=== PATIENT | female | born 1955 ===

== ENCOUNTER 2020-05-19 12:19 | Outpatient (REF) | payer MEDICARE, BC, SELFPAY ==
--- NOTE | 2020-05-19 12:25 | MM_ITS ---
EXAMINATION: MM DIAGNOSTIC DIGITAL BREAST TOMOSYNTHESIS, BILATERAL CLINICAL INFORMATION: Status post left breast lumpectomy COMPARISON: Mammography: May 14, 2019 and studies dating back to December 15, 2011 TECHNIQUE: Digital breast tomosynthesis is performed in both the craniocaudal and mediolateral oblique views along with computer-aided detection (CAD). Synthesized 2D images are generated from the tomosynthesis. Additional left cleavage view performed. Spot magnification films of the left breast in craniocaudal, exaggerated craniocaudal, and 90 degree mediolateral views also performed. FINDINGS: There are scattered areas of fibroglandular density (ACR BI-RADS breast composition Category b). There are no new significant masses, abnormal calcifications, or other abnormalities. Left breast postsurgical change evident. Results are provided to the patient at time of visit by the technologist. MM/MM tomosynthesis diagnostic BI IMPRESSION: There are no significant changes from prior study. ASSESSMENT: BI-RADS 2: Benign RECOMMENDATION: Routine annual mammography screening due in 12 months. This patient's information was entered into a reminder system with a target due date for their next mammogram.
== END 2020-05-19 12:20 | disposition home or self-care (01) ==
LOC: HO.MAMMO 12:19
PROVIDERS: PCP Internal Medicine; Visit Provider Internal Medicine
DX: Z86.000 Personal history of in-situ neoplasm of breast (principal); Z98.890 Other specified postprocedural states
CPT/HCPCS: 77062; 77066

== ENCOUNTER → 2020-06-25 08:39 | Outpatient (BNVA) | payer MEDICARE, BC, SELFPAY | PROVIDERS: PCP Internal Medicine; Visit Provider Surgery | DX: D05.02 Lobular carcinoma in situ of left breast (principal) | CPT/HCPCS: 99212 ==

== ENCOUNTER → 2020-10-15 12:19 | Outpatient (BNVA) | payer MEDICARE, BC, SELFPAY | PROVIDERS: PCP Internal Medicine; Visit Provider Internal Medicine Endocrinology, Diabetes & Metabolism | DX: E11.65 Type 2 diabetes mellitus with hyperglycemia (principal); E78.5 Hyperlipidemia, unspecified | CPT/HCPCS: 82947; 99202 ==

== ENCOUNTER → 2020-11-03 13:01 | Outpatient (BNVA) | payer MEDICARE, BC, SELFPAY | PROVIDERS: PCP Internal Medicine; Visit Provider Internal Medicine Endocrinology, Diabetes & Metabolism | DX: Z13.89 Encounter for screening for other disorder (principal) | CPT/HCPCS: Q3014 ==

== ENCOUNTER → 2020-12-25 09:19 | Outpatient (BNVA) | payer MEDICARE, BC, SELFPAY | PROVIDERS: PCP Internal Medicine; Referring Provider Internal Medicine; Visit Provider Surgery | DX: D05.02 Lobular carcinoma in situ of left breast (principal) | CPT/HCPCS: 99212 ==

== ENCOUNTER → 2021-01-16 12:48 | Outpatient (BNVA) | payer MEDICARE, BC, SELFPAY | PROVIDERS: PCP Internal Medicine; Visit Provider Internal Medicine Endocrinology, Diabetes & Metabolism | DX: E11.65 Type 2 diabetes mellitus with hyperglycemia (principal); E78.5 Hyperlipidemia, unspecified | CPT/HCPCS: 82947; 99212 ==

== ENCOUNTER → 2021-05-18 12:19 | Outpatient (BNVA) | payer MEDICARE, BC, SELFPAY | PROVIDERS: PCP Internal Medicine; Visit Provider Nurse Practitioner Gerontology | DX: E11.65 Type 2 diabetes mellitus with hyperglycemia (principal); E78.5 Hyperlipidemia, unspecified | CPT/HCPCS: 82947; 83036; 99212 ==

== ENCOUNTER 2021-06-15 12:09 | Outpatient (REF) | payer MEDICARE, BC, SELFPAY ==
--- NOTE | ~2021-06-15 | MM_ITS ---
EXAMINATION: MM SCREENING DIGITAL BREAST TOMOSYNTHESIS, BILATERAL CLINICAL INFORMATION: Screening. Asymptomatic. Left stereotactic biopsy 04/21/2018 with focal ADH. Subsequent LCIS on open surgical biopsy 05/25/2018. The lifetime risk of breast cancer based on the Tyrer-Cuzick Model is 40%. COMPARISON: Mammography: 05/19/2020, 05/14/2019, 11/28/2018, 05/25/2018, 04/21/2018, 04/07/2017 TECHNIQUE: Digital breast tomosynthesis is performed in both the craniocaudal and mediolateral oblique views along with computer-aided detection (CAD). Synthesized 2D images are generated from the tomosynthesis. FINDINGS: There are scattered areas of fibroglandular density (ACR BI-RADS breast composition Category b). There are postsurgical changes left breast with mild reduced breast size and stable scarring. Parenchymal pattern is similar to prior study. Minor nodular asymmetry central outer right breast is stable from prior exams. There is no developing density or interval mass or architectural abnormality. No abnormal calcifications. No significant changes. MM/MM tomosynthesis screening BI IMPRESSION: No mammographic evidence of malignancy. ASSESSMENT: BI-RADS 2: Benign RECOMMENDATION: 1. Routine annual mammography screening. 2. The lifetime risk of breast cancer based on the Tyrer-Cuzick Model is 40%. Additional annual adjunct screening with breast MRI may be of benefit in women with a risk score of 20% or greater. This patient's information was entered into a reminder system with a target due date for their next mammogram.
== END 2021-06-15 12:10 | disposition home or self-care (01) ==
LOC: HO.MAMMO 12:09
PROVIDERS: PCP Internal Medicine; Visit Provider Surgery
DX: Z12.31 Encounter for screening mammogram for malignant neoplasm of breast (principal)
CPT/HCPCS: 77063; 77067

== ENCOUNTER → 2021-06-26 11:22 | Outpatient (BNVA) | payer MEDICARE, BC, SELFPAY | PROVIDERS: PCP Internal Medicine; Referring Provider Internal Medicine; Visit Provider Surgery | DX: D05.02 Lobular carcinoma in situ of left breast (principal) | CPT/HCPCS: 99212 ==

== ENCOUNTER 2021-07-07 08:46 | Outpatient (REF) | payer MEDICARE, BC, SELFPAY ==
[2021-07-07 09:47] LABS: COVID-19 Test Negative (Negative); IDNOW Serial# 16C4AD1C
== END 2021-07-07 08:47 | disposition home or self-care (01) ==
LOC: HO.LAB 08:46
PROVIDERS: Visit Provider Internal Medicine
DX: Z20.822 Contact with and (suspected) exposure to COVID-19 (principal)
CPT/HCPCS: 36415; 87635; C9803

== ENCOUNTER 2021-07-08 15:15 | Outpatient (REF) | payer MEDICARE, BC, SELFPAY ==
--- NOTE | ~2021-07-08 | MR_ITS ---
EXAMINATION: MR BREAST WITHOUT AND WITH CONTRAST, BILATERAL CLINICAL INFORMATION: 66-year-old status post ADH and LCIS left breast high-risk screening, COMPARISON: Correlation to mammogram of 06/15/2021. TECHNIQUE: Imaging was performed with a dedicated breast coil. Prior to the administration of contrast, bilateral axial T1 and bilateral axial T2 weighted sequences were obtained. After the uneventful administration of?6.5 mL of Gadavist, dynamic contrast-enhanced VIBRANT series through the breasts in the axial plane were performed. Subtracted images were performed and reviewed. A delayed sagittal sequence through both breasts was acquired. Additionally, CAD post-processing, including maximum intensity projections, 3-D reconstructions and kinetic analysis, were performed an independent workstation and reviewed by the interpreting radiologist is a portion of this exam. FINDINGS: The patient's fibroglandular tissue demonstrates minimal background enhancement. LEFT BREAST: There is architectural distortion in the upper outer quadrant from prior lumpectomy. There is no associated enhancement. There are no areas of mass or non-mass enhancement suspicious of malignancy. There are no additional findings on T2-weighted imaging or kinetic curve analysis. RIGHT BREAST: There is an oval T2 bright mass in the 9 o'clock position measuring 0.5 cm, consistent with a cyst. There are no areas of mass or non-mass enhancement suspicious of malignancy and no secondary signs of malignancy such as nipple retraction or duct enhancement. There are no additional findings on T2-weighted imaging or kinetic curve analysis. There is no suspicious internal mammary chain or axillary adenopathy. Limited views of the chest and abdomen are unremarkable. MR/MR breast BI wo/w con IMPRESSION: Postlumpectomy changes in the left breast. No MRI findings suspicious of malignancy. ASSESSMENT: LEFT BREAST: BI-RADS 2, benign. RIGHT BREAST: BI-RADS 2, benign. RECOMMENDATIONS: Routine mammographic imaging as per most recent study and MRI as per high-risk protocol.
[2021-07-08 15:52] LABS: Blood Urea Nitrogen 19 mg/dL (9-16); Estimated Glomerular Filt Rate > 60
== END 2021-07-08 15:16 | disposition home or self-care (01) ==
LOC: HO.MRI 15:15
PROVIDERS: PCP Internal Medicine; Visit Provider Surgery
DX: D05.02 Lobular carcinoma in situ of left breast (principal); Z91.89 Other specified personal risk factors, not elsewhere classified
CPT/HCPCS: 36415; 77049; 82565; 84520; A9585

== ENCOUNTER → 2021-09-09 12:21 | Outpatient (BNVA) | payer BC, SELFPAY | PROVIDERS: PCP Internal Medicine; Visit Provider Nurse Practitioner Gerontology | DX: E11.65 Type 2 diabetes mellitus with hyperglycemia (principal); E78.5 Hyperlipidemia, unspecified; Z79.84 Long term (current) use of oral hypoglycemic drugs | CPT/HCPCS: 82947; 83036 ==

== ENCOUNTER 2021-09-19 07:06 | Outpatient (REF) | payer BC, SELFPAY ==
[2021-09-19 07:48] LABS: Alanine Aminotransferase 19 U/L (0-31); Albumin Level 4.1 g/dL (3.5-5.0); Alkaline Phosphatase 157 U/L (39-117); Anion Gap 13 (12-20); Aspartate Amino Transferase 17 U/L (5-31); Bilirubin Total 0.4 mg/dL (0.0-1.0); Blood Urea Nitrogen 20 mg/dL (9-16); Calcium 9.7 mg/dL (8.4-10.2); Carbon Dioxide 23 mmol/L (22-29); Chloride 107 mmol/L (96-108); Cholesterol 131 mg/dL; Estimated Glomerular Filt Rate 54; Glucose Fasting 293 mg/dL (60-99); HDL Cholesterol 41 mg/dL; LDL Cholesterol Calculated 57 mg/dl; Potassium 4.4 mmol/L (3.3-5.1); Sodium 139 mmol/L (135-145); Total Protein 6.7 g/dL (6.5-8.0); Triglycerides 166 mg/dL
[2021-09-19 08:09] LABS: Free T4 (Free Thyroxine) 1.24 ng/dL (0.71-1.85); Thyroid Stimulating Hormone 1.32 uIU/mL (0.32-4.0)
[2021-09-19 08:29] LABS: Creatinine Urine 53.08 mg/dL; Microalbum/Creatinine Ratio Ur 43.3 ug/mg cr
[2021-09-21 05:21] LABS: LDL Cholesterol Direct 62 mg/dL (<100)
== END 2021-09-19 07:07 | disposition home or self-care (01) ==
LOC: HO.LAB 07:06
PROVIDERS: PCP Internal Medicine; Visit Provider Nurse Practitioner Gerontology
DX: E11.65 Type 2 diabetes mellitus with hyperglycemia (principal)
CPT/HCPCS: 36415; 80053; 80061; 82043; 83721; 84439; 84443

== ENCOUNTER 2022-06-17 09:57 | Outpatient (REF) | payer MEDICARE, BC, SELFPAY ==
--- NOTE | ~2022-06-17 | MM_ITS ---
EXAMINATION: MM SCREENING DIGITAL BREAST TOMOSYNTHESIS, BILATERAL CLINICAL INFORMATION: Screening. Asymptomatic. ADH and LCIS left breast. COMPARISON: Mammography: June 15, 2021 and studies dating back to December 15, 2011 TECHNIQUE: Digital breast tomosynthesis is performed in both the craniocaudal and mediolateral oblique views along with computer-aided detection (CAD). Synthesized 2D images are generated from the tomosynthesis. FINDINGS: There are scattered areas of fibroglandular density (ACR BI-RADS breast composition Category b). There are no new significant masses, abnormal calcifications, or other abnormalities. Postsurgical change again seen within the left breast. MM/MM tomosynthesis screening BI IMPRESSION: No significant changes from prior exam. ASSESSMENT: BI-RADS 2: Benign RECOMMENDATION: Routine annual mammography screening. This patient's information was entered into a reminder system with a target due date for their next mammogram.
== END 2022-06-17 09:58 | disposition home or self-care (01) ==
LOC: HO.MAMMO 09:57
PROVIDERS: PCP Internal Medicine; Visit Provider Internal Medicine
DX: Z12.31 Encounter for screening mammogram for malignant neoplasm of breast (principal)
CPT/HCPCS: 77063; 77067

== ENCOUNTER → 2022-07-09 09:40 | Outpatient (BNVA) | payer BC, SELFPAY | PROVIDERS: PCP Internal Medicine; Visit Provider Surgery | DX: D05.02 Lobular carcinoma in situ of left breast (principal); Z91.89 Other specified personal risk factors, not elsewhere classified ==

== ENCOUNTER 2022-12-31 08:03 | Outpatient (REF) | payer BC, SELFPAY ==
--- NOTE | ~2022-12-31 | MR_ITS ---
EXAMINATION: MR BREAST WITHOUT AND WITH CONTRAST, BILATERAL CLINICAL INFORMATION: High-risk screening. Left breast cancer. Lifetime risk 40%. Lobular neoplasia. COMPARISON: 07/08/2021. Mammography 06/17/2022. TECHNIQUE: Imaging was performed with a dedicated breast coil. Prior to the administration of contrast, bilateral axial T1 and bilateral axial T2 weighted sequences were obtained. After the uneventful administration of?7 mL of Gadavist, dynamic contrast-enhanced VIBRANT series through the breasts in the axial plane were performed. Subtracted images were performed and reviewed. A delayed sagittal sequence through both breasts was acquired. Additionally, CAD post-processing, including maximum intensity projections, 3-D reconstructions and kinetic analysis, were performed an independent workstation and reviewed by the interpreting radiologist is a portion of this exam. FINDINGS: The breasts are comprised of scattered fibroglandular elements. The tissue undergoes mild background enhancement. Minor motion artifact. LEFT BREAST: Retroareolar architectural distortion predominating laterally following prior lumpectomy. Stable parenchymal enhancement at surgical site. Stable postoperative nipple retraction. No suspicious left breast mass nor dominant nonmass enhancement. A tiny medial focus of skin enhancement at 10:00 near the midline, clinical correlation suggested. RIGHT BREAST: No suspicious mass, dominant nonmass enhancement or architectural distortion. Overall background enhancement has increased compared with priors. No skin thickening or nipple retraction. Tiny foci of skin enhancement medially are unchanged. 5 mm T2 bright nonenhancing focus at 9:00 unchanged again likely a cyst. There is no suspicious internal mammary chain or axillary adenopathy. Limited views of the chest and abdomen are unremarkable. MR/MR breast BI wo/w con IMPRESSION: No MR specific evidence of malignancy. Status post left lumpectomy. Scattered foci of skin enhancement again noted. ASSESSMENT: LEFT BREAST: BI-RADS 2, benign findings. RIGHT BREAST: BI-RADS 2, benign findings. RECOMMENDATIONS: Recommend a repeat bilateral breast MRI in 12 months.
== END 2022-12-31 08:04 | disposition home or self-care (01) ==
LOC: HO.MRI 08:03
PROVIDERS: PCP Internal Medicine; Visit Provider Surgery
DX: D05.10 Intraductal carcinoma in situ of unspecified breast (principal); Z91.89 Other specified personal risk factors, not elsewhere classified
CPT/HCPCS: 77049; A9585

== ENCOUNTER → 2023-01-06 08:55 | Outpatient (BNVA) | payer BC, SELFPAY | PROVIDERS: PCP Internal Medicine; Visit Provider Surgery | DX: D05.02 Lobular carcinoma in situ of left breast (principal); Z91.89 Other specified personal risk factors, not elsewhere classified ==

== ENCOUNTER 2023-04-27 09:13 | Outpatient (AMB) | payer BC, SELFPAY ==
--- NOTE | 2023-04-27 09:37 | MHC.PC.OV ---
Vital Signs 04/27/23 09:40 Height 5 ft 2 in Weight 149 lb 8 oz BMI 27.3 BP 124/64 Blood Pressure Location Lt brachial Position Sitting Pulse 97 Pulse Source Pulse Oximeter Pulse Oximetry (%) 96 Oxygen Delivery Method Room Air Intake Visit Reasons: Re-establish care/ Due for Colonoscopy Intake Note: Patient is here today for re-establish care and is due for colonoscopy Child Care Nurse Required: No Forestry Consultant: Not Required per policy Accompanied by: Self / Same As Patient Allergies oxycodone [From PERCOCET] Allergy (Unknown, Verified 04/28/23 06:52) NAUSEA & VOMITING semaglutide [From Rybelsus] Adverse Reaction (Verified 04/28/23 06:52) Vomiting Medication List - Last Reconciled 04/28/23 by Armando Nobles MD amlodipine 5 mg PO DAILY blood sugar diagnostic (FreeStyle Lite Strips) As directed once daily cholecalciferol (vitamin D3) 50 mcg PO DAILY cinacalcet 30 mg PO DAILY dapagliflozin propanediol (Farxiga) 10 mg PO DAILY 90 days flash glucose sensor (FreeStyle Heidi 2 Sensor kit) As directed lancets (FreeStyle Lancets) As directed once daily lancets (FreeStyle Lancets) daily magnesium oxide 400 mg PO DAILY metformin 1,000 mg (2 x 500 mg) PO BID 90 days metoprolol succinate ER mg PO mycophenolate sodium 360 mg PO BID pen needle, diabetic (BD Ultra-Fine Gill Pen Needle) As directed once daily semaglutide (Ozempic) 0.5 mg subcut QWEEK simvastatin 20 mg PO BEDTIME tacrolimus 2 mg PO DAILY tacrolimus 4 mg PO DAILY Tobacco use date assessed: 04/27/23 Fall risk assessment: No Falls in past year Last assessed Fall Risk: 04/27/23 Dental Screening Dental Screen Date: 04/27/23 Did you have a dental visit in the last 12 months?: Yes Did you have a dental problem in the last 6 months where you did not have access to dental care?: No Was dental information given to patient?: Patient has dentist HPI Re-establish care/ Due for Colonoscopy HPI Details 67-year-old female presents to the office to establish her care. She was last seen in the office 3 years ago. Patient has a kidney transplant and poorly controlled diabetes. For this she sees a transplant hse coordinator and site interpreter at [facility]. All her care is from them. She was contacted by quality department to reestablish here to get a screening colonoscopy. Patient occasionally has left hip pain. The pain is intermittent and comes on without any provocation. Able to walk and do all activities of daily living. Does not recall any fall or injury. 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 Stage 4 chronic kidney disease Surgical History History of kidney transplant (06/09/18) History of lumpectomy of left breast History of left breast biopsy (04/2018) History of biopsy History of Mohs surgery for squamous cell carcinoma of skin History of endometrial ablation History of umbilical hernia repair Family History (Updated 04/27/23 @ 09:38 by CAYLA Dhaliwal) Mother History of melanoma History of stomach cancer History of pulmonary embolism Social History Household Members: Significant Other Housing: Apartment Alcohol intake: never Patient Tobacco Use Status: Never used Tobacco e-Cigarette/Vaping Use: Never Used Second Hand Smoke Exposure: No service: No Current occupational status: employed and retired 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 1. Little interest or pleasure in doing things: not at all 2. Feeling down, depressed, or hopeless: not at all 3. Trouble falling or staying asleep, or sleeping too much: not at all 4. Feeling tired or having little energy: not at all 5. Poor appetite or overeating: not at all 6. Feeling bad about yourself - or that you are a failure or have let yourself or your family down: not at all 7. Trouble concentrating on things, such as reading the newspaper or watching television: not at all 8. Moving or speaking so slowly that other people could have noticed. Or the opposite - being so fidgety or restless that you have been moving around a lot more than usual: not at all 9. Thoughts that you would be better off or of hurting yourself in some way: not at all Total score: 0 Depression Screening Interpretation: Negative Depression Screening Done: Yes Source: Developed by Drs. Fox Dill, Holli Whitaker, Abelardo Wright and colleagues, with an educational gerard from [employer]. Thrive Questionnaire Date Thrive assessed: 04/27/23 I am a: Patient What is your living situation today?: I have a steady place to live Within the past 12 months, did the food you bought not last and you didn't have the money to get more?: Never true Within the past 12 months, did you worry whether your food would run out before you got money to buy more?: Never true Do you have trouble paying for medicines?: No Do you have trouble getting transportation to medical appointments?: No Do you have trouble paying your heating and electricity bill?: No Do you have trouble taking care of your child, family member or friend?: No Do you have trouble with day-to-day activities such as bathing, preparing meals, shopping, managing finances, etc.?: No Are you currently unemployed and looking for a job?: No Are you interested in more education?: No Currently or been in a relationship where the following occur: no concerns reported AUDIT C Alcohol Use Questionnaire (AUDIT-C) 1. How often do you have a drink containing alcohol?: Never Total Score: 0 SHAYLA-7 AMB Questionnaire SHAYLA-7 Date SHAYLA - 7 assessed: 04/27/23 Feeling nervous, anxious, or on edge: 0 = Not at all Not being able to stop or control worryin = Not at all Worrying too much about different things: 0 = Not at all Trouble relaxin = Not at all Being so restless that it is hard to sit still: 0 = Not at all Becoming easily annoyed or irritable: 0 = Not at all Feeling afraid as if something awful might happen: 0 = Not at all Total SHAYLA-7 score (0-4 normal; 5-9 mild; 10-14 moderate; 15-21 severe): 0 Source: Developed by Holli Oleary Kurt Kroenke and colleagues, with an educational gerard from [employer]. Physical exam (Primary Care) Vital Signs: Last Vital Signs Pulse 97 04/27/23 09:40 BP 124/64 04/27/23 09:40 Pulse Ox 96 04/27/23 09:40 Oxygen Delivery Method Room Air 04/27/23 09:40 BMI result Body Mass Index 27.3 Tobacco/Smoking Status: Tobacco use Status Tobacco use date assessed 04/27/23 04/27/23 09:47 Patient Tobacco Use Status Never used Tobacco 04/27/23 09:47 e-Cigarette/Vaping Use Never Used 04/27/23 09:47 PHQ-9: PHQ-9 Score PHQ-9: Total score 0 04/27/23 09:47 Depression Screening Interpretation: Negative Thrive Assessment: Date of Thrive Assessment Date Thrive assessed 04/27/23 04/27/23 09:47 Currently or been in a relationship where the following occur: no concerns reported Const General: cooperative and healthy appearing Nutritional Appearance: well nourished Orientation/consciousness: patient oriented x3 Limitations: no limitations HENMT Head: Yes normal to inspection Eyes General: appearance normal, both eyes and all related structures Neck Neck: Yes normal visual inspection Chest Chest palpation & inspection: normal palpation of entire chest wall Resp Effort & Inspection: normal respiratory effort Neuro General: patient oriented x3 Extrem Other: Left hip: Full internal and external rotation. Flexion and extension at the hip elicits no pain. Results AMB Hemoglobin A1c AMB Hemoglobin A1c 7.7 % Last Edit by CAYLA Dhaliwal on 04/27/23 10:04 Results Reviewed Results Reviewed: Laboratory Last Values Hgb A1c (Clinic) 7.7 % (4.0-6.0) H 04/27/23 09:52 Assessment and Plan Assessment & Plan (1) Diabetes type 2, uncontrolled: Code(s): E11.65 - Type 2 diabetes mellitus with hyperglycemia Plan: Patient continues to have elevated A1c. However her diabetes management is from the physicians at [facility]. She would prefer to see them and get her medications adjusted. She has had a screening mammogram from Dr. Lyn's office and she would like to continue that arrangement. A screening colonoscopy was ordered. Patient was offered a flu vaccine which she has declined. Orders: Orders AMB Hemoglobin A1c 04/27/23 E11.65 - Type 2 diabetes mellitus with hyperglycemia Referrals Gastroenterology Referral Z12.11 - Encounter for screening for malignant neoplasm of colon Coding Level of Care Code Est Pt Level 4 (19826) Diagnoses Diabetes type 2, uncontrolled E11.65
[2023-04-27 09:40] VITALS: BP 124/64; PULSE 97; O2SAT 96; BMI 27.3
== END 2023-04-27 10:32 | disposition home or self-care (01) ==
PROVIDERS: PCP Internal Medicine; Visit Provider Internal Medicine
DX: E11.65 Type 2 diabetes mellitus with hyperglycemia (principal)
CPT/HCPCS: 83036; 99214

== ENCOUNTER 2023-05-26 08:55 | Outpatient (REF) | payer BC, SELFPAY ==
--- NOTE | ~2023-05-26 | XR_ITS ---
EXAMINATION: XR HIP, LEFT CLINICAL INFORMATION: Pain without injury. COMPARISON: Radiographs dated 03/22/2006. TECHNIQUE: AP and frog-leg lateral views of the left hip. FINDINGS: Bony alignment and mineralization are normal. The left acetabular joint space is well-maintained. There is mild to moderate peripheral osteophyte formation of the left acetabular roof. The left femoral head is smooth. No fracture or dislocation is seen. The left sacroiliac joint is well-maintained, and the pubic symphysis is intact. No foreign body is noted. XR/XR hip LT min 2V IMPRESSION: There is mild osteoarthritic change of the left hip. No fracture or dislocation is seen.
== END 2023-05-26 08:56 | disposition home or self-care (01) ==
LOC: HO.XRAY 08:55
PROVIDERS: PCP Internal Medicine; Visit Provider Internal Medicine
DX: M16.12 Unilateral primary osteoarthritis, left hip (principal)
CPT/HCPCS: 73502

== ENCOUNTER 2023-06-23 09:32 | Outpatient (REF) | payer BC, SELFPAY ==
--- NOTE | ~2023-06-23 | MM_ITS ---
EXAMINATION: MM SCREENING DIGITAL BREAST TOMOSYNTHESIS, BILATERAL CLINICAL INFORMATION: Screening. Asymptomatic. History focal atypical ductal hyperplasia left breast stereotactic biopsy 04/21/2018 with LCIS on open surgical biopsy 05/25/2018. COMPARISON: 12/31/2022 MRI breast, 06/17/2022 mammography, 07/08/2021 MRI breasts. 05/19/2020 mammography, 05/14/2019 mammography. 11/28/2018, 05/25/2018, 04/21/2018, 04/13/2018, 04/07/2017 mammography. TECHNIQUE: Digital breast tomosynthesis is performed in both the craniocaudal and mediolateral oblique views along with computer-aided detection (CAD). Synthesized 2D images are generated from the tomosynthesis. FINDINGS: There are scattered areas of fibroglandular density (ACR BI-RADS breast composition Category b). There are stable post therapy changes in the left breast with mild reduced breast size and associated scarring superiorly and laterally. Other scattered dystrophic calcifications in both breasts without aggressive manager change grouping. Parenchymal asymmetries are stable from prior exam in both breasts most notable on the right. There are no suspicious masses, suspicious grouped calcifications, or areas of architectural distortion in either breast. MM/MM tomosynthesis screening BI IMPRESSION: No mammographic evidence of malignancy. Stable benign findings as discussed. ASSESSMENT: BI-RADS BI-RADS 2 - Benign Findings RECOMMENDATION: Routine annual mammography screening. 1 year F/U This examination should not preclude the clinical evaluation of a suspicious palpable abnormality. This patient's information was entered into a reminder system with a target due date for their next mammogram.
== END 2023-06-23 09:33 | disposition home or self-care (01) ==
LOC: HO.MAMMO 09:32
PROVIDERS: PCP Internal Medicine; Visit Provider Surgery
DX: Z12.31 Encounter for screening mammogram for malignant neoplasm of breast (principal)
CPT/HCPCS: 77063; 77067

== ENCOUNTER → 2023-06-23 10:00 | Outpatient (BNV) | payer BC, SELFPAY | PROVIDERS: PCP Internal Medicine; Visit Provider Radiology Diagnostic Radiology | DX: Z12.31 Encounter for screening mammogram for malignant neoplasm of breast (principal) | CPT/HCPCS: 77063; 77067 ==

== ENCOUNTER 2023-07-22 08:42 | Outpatient (AMB) | payer BC, SELFPAY ==
--- NOTE | 2023-07-22 08:47 | MHC.OFFVIS ---
Intake Vital Signs 07/22/23 08:52 Height 5 ft Weight 143 lb BMI 27.9 BP 147/87 H Blood Pressure Location Lt brachial Position Sitting Intake Visit Reasons: 6 mth breast exam - mammo in Jun Intake Note: Patient is seen in office for 6 month follow up visit, breast exam. Pt c/o: denies any concerns regarding the breast mm:06/23/23 MRI b:12/31/22 DUE Armhole Raiser Lockstitch Required: No Accompanied by: Self / Same As Patient Allergies oxycodone [From PERCOCET] Allergy (Unknown, Verified 04/28/23 06:52) NAUSEA & VOMITING semaglutide [From Rybelsus] Adverse Reaction (Verified 04/28/23 06:52) Vomiting Medication List - Last Reconciled 07/22/23 by Brian Lyn MD amlodipine 5 mg PO DAILY blood sugar diagnostic (FreeStyle Lite Strips) As directed once daily cholecalciferol (vitamin D3) 50 mcg PO DAILY cinacalcet 30 mg PO DAILY dapagliflozin propanediol (Farxiga) 10 mg PO DAILY 90 days flash glucose sensor (FreeStyle Heidi 2 Sensor kit) As directed lancets (FreeStyle Lancets) As directed once daily lancets (FreeStyle Lancets) daily magnesium oxide 400 mg PO DAILY metformin 1,000 mg (2 x 500 mg) PO BID 90 days metoprolol succinate ER mg PO mycophenolate sodium 360 mg PO BID pen needle, diabetic (BD Ultra-Fine Gill Pen Needle) As directed once daily semaglutide (Ozempic) 0.5 mg subcut QWEEK simvastatin 20 mg PO BEDTIME tacrolimus 2 mg PO DAILY tacrolimus 4 mg PO DAILY HPI HPI Comments History of Present Illness Details 68-year-old female patient returning for follow-up breast examination. She was initially diagnosed with ADH in the left breast and subsequently underwent needle localization of the left breast lumpectomy on 07/18/2018. She was determined to have LCIS. She was evaluated by Medical Oncology and Radiation Oncology. No radiation therapy was felt to be required. Follow-up bilateral mammography on 05/19/2020 revealed only benign findings (BI-RADS 2). Her Tyrer-Cuzick lifetime risk of breast cancer however was determined to be 40%, well above the 20% threshold for high risk. Her most recent breast MRI of 12/31/2022 revealed no MR specific evidence of malignancy (BI-RADS 2 bilateral). Her most recent mammogram of 06/23/2023 revealed no mammographic evidence of malignancy (BI-RADS 2). One year follow-up mammography is recommended. She denies any new breast symptoms and generally feels well from her transplant standpoint. 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 Stage 4 chronic kidney disease Surgical History History of kidney transplant (06/09/18) History of lumpectomy of left breast History of left breast biopsy (04/2018) History of biopsy History of Mohs surgery for squamous cell carcinoma of skin History of endometrial ablation History of umbilical hernia repair Family History Mother History of melanoma History of stomach cancer History of pulmonary embolism Social History Household Members: Significant Other Housing: Apartment Alcohol intake: never Patient Tobacco Use Status: Never used Tobacco e-Cigarette/Vaping Use: Never Used Second Hand Smoke Exposure: No service: No Current occupational status: employed and retired 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 Cognitive needs: No Hearing needs: No Vision needs: Yes (glasses) Review of Systems Const Denies chills, Denies fever(s), Denies headache(s) and Denies poor appetite ENT Denies dizziness and Denies headache(s) Card Denies chest pain, Denies rapid heart rate, Denies palpitations and Denies slow heart rate Resp Denies chest congestion, Denies cough, Denies pain on inspiration and Denies wheezing GI Denies abdominal pain, Denies bloating, Denies change in stool character, Denies constipation, Denies diarrhea, Denies nausea, Denies vomiting and Denies hematemesis Musc Denies back pain, Denies arthralgias, Denies joint swelling and Denies numbness Skin/Breast Denies breast skin changes, Denies breast pain, Denies breast mass, Denies change in pigmentation, Denies erythema and Denies rash Neuro Denies confusion, Denies dizziness, Denies headache(s) and Denies numbness Psych Denies anxiety, Denies confusion and Denies depression Endo Denies palpitations Lee/Lymph Denies easy bleeding, Denies easy bruising and Denies lymphadenopathy Aller/Immun Denies wheezing Physical Exam Vital Signs: Last Vital Signs BP 147/87 H 07/22/23 08:52 BMI result Body Mass Index 27.9 Const General: No confusion Nutritional Appearance: well nourished Orientation/consciousness: No confusion Eyes Sclerae: sclerae normal EOM: EOMs intact bilaterally Neck Neck: Yes normal visual inspection and Yes no lymphadenopathy Chest Other: Well-healed incision in the upper outer quadrant left breast with no palpable mass, skin change, nipple discharge, nipple retraction, or enlarged lymph nodes in either breast. Right breast: No skin change, nipple discharge, nipple retraction, palpable mass, or enlarged lymph nodes. 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 Patient is felt to be high risk for breast cancer and is being followed twice yearly with clinical breast examination, and yearly MRI and mammography. Her most recent MRI of 12/31/2022 revealed no MR specific evidence of malignancy (BI-RADS 2) and mammogram of 06/23/2023 revealing no mammographic evidence of malignancy (BI-RADS 2). Examination today revealed no suspicious findings in either breast and no new symptoms. I recommended follow-up examination in 6 months following her next breast MRI. 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
[2023-07-22 08:52] VITALS: BP 147/87; BMI 27.9
== END 2023-07-22 09:00 | disposition home or self-care (01) ==
PROVIDERS: PCP Internal Medicine; Visit Provider Surgery
DX: D05.02 Lobular carcinoma in situ of left breast (principal); Z91.89 Other specified personal risk factors, not elsewhere classified
CPT/HCPCS: 99213

== ENCOUNTER → 2023-07-22 08:42 | Outpatient (BNVA) | payer BC, SELFPAY | PROVIDERS: PCP Internal Medicine; Visit Provider Surgery ==

== ENCOUNTER 2023-07-27 07:41 | Outpatient (AMB) | payer BC, SELFPAY ==
--- NOTE | 2023-07-27 07:59 | MHC.OFFVIS ---
Intake Vital Signs 07/27/23 08:03 Height 5 ft 2 in Weight 136 lb 10.986 oz BMI 25.0 BP 119/72 Blood Pressure Location Lt brachial Position Sitting Pulse 94 Intake Visit Reasons: Colonoscopy Screening Intake Note: Janell presents in the office as a new patient colonoscopy screening. CC: No concerns at this time - she is just due for a colonoscopy. Allergies oxycodone [From PERCOCET] Allergy (Unknown, Verified 07/27/23 08:04) NAUSEA & VOMITING semaglutide [From Rybelsus] Adverse Reaction (Verified 07/27/23 08:04) Vomiting Medication List - Last Reconciled 07/27/23 by Kimberly Julian PA-C amlodipine 10 mg PO DAILY ascorbate calcium (vitamin C) 1 g PO Q6H blood sugar diagnostic (FreeStyle Lite Strips) As directed once daily cinacalcet 30 mg PO DAILY dapagliflozin propanediol (Farxiga) 10 mg PO DAILY 90 days flash glucose sensor (FreeStyle Heidi 2 Sensor kit) As directed insulin glargine (Lantus Solostar U-100 Insulin) units subcut lancets (FreeStyle Lancets) As directed once daily lancets (FreeStyle Lancets) daily magnesium oxide 400 mg PO DAILY metformin ER 1,000 mg PO BID metoprolol succinate ER mg PO mycophenolate sodium 360 mg PO BID pen needle, diabetic (BD Ultra-Fine Gill Pen Needle) As directed once daily semaglutide (Ozempic) mg subcut simvastatin 20 mg PO BEDTIME tacrolimus 2 mg PO DAILY valsartan 80 mg PO DAILY HPI HPI Comments History of Present Illness Details A 68 y/o female s/p kidney transplant( 5 years ago) referred for colonoscopy-she says she is feeling better-since transplant. 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 Surgical History Hx of colonoscopy History of kidney transplant (06/09/18) History of lumpectomy of left breast History of left breast biopsy (04/2018) History of biopsy History of Mohs surgery for squamous cell carcinoma of skin History of endometrial ablation History of umbilical hernia repair Family History Mother History of melanoma History of stomach cancer History of pulmonary embolism Social History Household Members: Significant Other Housing: Apartment Alcohol intake: never Patient Tobacco Use Status: Never used Tobacco e-Cigarette/Vaping Use: Never Used Second Hand Smoke Exposure: No service: No Current occupational status: employed and retired 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 Cognitive needs: No Hearing needs: No Vision needs: Yes (glasses) Review of Systems Const Details: Systems reviewed and are negative All systems reviewed & are unremarkable except as noted in HPI and below GI Denies abdominal pain, Denies heartburn, Denies diarrhea, Denies nausea and Denies vomiting Physical Exam Vital Signs: Last Vital Signs Pulse 94 07/27/23 08:03 BP 119/72 07/27/23 08:03 BMI result Body Mass Index 25.0 Const General: cooperative, healthy appearing, comfortable and no acute distress Eyes Sclerae: sclerae normal Resp Effort & Inspection: normal respiratory effort and able to speak in complete sentences Auscultation: clear to auscultation bilaterally, no rales, no rhonchi and no wheezes Cardio Rate: regular rate (Oct) Rhythm: regular rhythm Heart sounds: S1 normal heart sound present and S2 normal heart sound present Skin Lesions: lesion noted (nose) Extrem General: Yes full ROM Psych Appearance: well kempt Mental Status: mental status grossly normal Speech and movement: Clear speech present Affect: Labile affect present Attitude: cooperative Thought content: Normal thought content present Results Reviewed Results Reviewed: 2017- adenomas- [place] Assessment & Plan Assessment & Plan (1) History of colon polyps: Comment: Discussed procedure, rare risks, need for escort. Discussed medications-changes for procedure Code(s): Z86.010 - Personal history of colonic polyps Plan: Polyp surveillance colonoscopy Plan polyp surveillance- prep to be determined - Wednesdays Insulin- 1/2 dose enid before Omit metformin evening before as well No DM med morning of procedure Patient Instructions: polyp surveillance- prep to be determined - Wednesdays-must discontinue 1 full week prior to procedure Insulin- 1/2 dose enid before Omit metformin evening before as well No DM med morning of procedure No major barriers to understanding were identified Coding Level of Care Code New Pt Level 3 (08938) Diagnoses History of colon polyps Z86.010 Time Spent (min) 30
[2023-07-27 08:03] VITALS: BP 119/72; PULSE 94; BMI 25.0
== END 2023-07-27 08:30 | disposition home or self-care (01) ==
PROVIDERS: PCP Internal Medicine; Visit Provider Physician Assistant
DX: Z01.818 Encounter for other preprocedural examination (principal); Z12.11 Encounter for screening for malignant neoplasm of colon; Z86.010 Personal history of colon polyps
CPT/HCPCS: S0285

== ENCOUNTER → 2023-07-27 07:41 | Outpatient (BNVA) | payer BC, SELFPAY | PROVIDERS: PCP Internal Medicine; Visit Provider Physician Assistant ==

== ENCOUNTER 2023-10-27 08:49 | Outpatient (AMB) | payer BC, SELFPAY ==
--- NOTE | 2023-10-27 08:52 | MHC.PC.OV ---
Vital Signs 10/27/23 08:54 Height 5 ft 2 in Weight 136 lb 4 oz BMI 24.9 BP 120/78 Blood Pressure Location Lt brachial Position Sitting Pulse 58 Pulse Source Pulse Oximeter Pulse Oximetry (%) 96 Oxygen Delivery Method Room Air Intake Visit Reasons: 6mth f/u Intake Note: Patient is here to follow up on DM, Dyslipidemia. Bobbin Winder Tender Required: No Pharmacy Ancillary: Not Required per policy Accompanied by: Self / Same As Patient Allergies oxycodone [From PERCOCET] Allergy (Unknown, Verified 10/27/23 09:31) NAUSEA & VOMITING semaglutide [From Rybelsus] Adverse Reaction (Verified 10/27/23 09:31) Vomiting Medication List - Last Reconciled 10/27/23 by Armando Nobles MD amlodipine 10 mg PO DAILY ascorbate calcium (vitamin C) 1 g PO Q6H blood sugar diagnostic (FreeStyle Lite Strips) As directed once daily dapagliflozin propanediol (Farxiga) 10 mg PO DAILY 90 days insulin glargine (Lantus Solostar U-100 Insulin) units subcut lancets (FreeStyle Lancets) As directed once daily lancets (FreeStyle Lancets) daily magnesium oxide 400 mg PO DAILY metformin ER 1,000 mg PO BID metoprolol succinate ER mg PO mycophenolate sodium 360 mg PO BID peg-electrolyte soln 420 gram 240 mL PO ONCE PRN 1 day pen needle, diabetic (BD Ultra-Fine Gill Pen Needle) As directed once daily semaglutide (Ozempic) mg subcut simvastatin 20 mg PO BEDTIME tacrolimus XR 2 mg PO DAILY valsartan 80 mg PO DAILY Tobacco use date assessed: 10/27/23 Fall risk assessment: No Falls in past year Last assessed Fall Risk: 10/27/23 Dental Screening Dental Screen Date: 10/27/23 Did you have a dental visit in the last 12 months?: Yes Did you have a dental problem in the last 6 months where you did not have access to dental care?: No Was dental information given to patient?: Patient has dentist HPI 6mth f/u HPI Details 68-year-old female presents to the office to discuss her chronic medical conditions. Since last office visit, her right hip pain has improved. X-ray had shown mild arthritis. She no longer has the discomfort. Able to walk and do all activities of daily living. Patient has a continues glucose monitor on her. Her blood sugars range from 180-290. Sees the family services specialist at [facility] who is adjusting her medications. Patient also had a kidney transplant and follows an a transplant home visit field care manager. He has been monitoring and adjusting her medications. 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 Surgical History Hx of colonoscopy History of kidney transplant (06/09/18) History of lumpectomy of left breast History of left breast biopsy (04/2018) History of biopsy History of Mohs surgery for squamous cell carcinoma of skin History of endometrial ablation History of umbilical hernia repair Family History Mother History of melanoma History of stomach cancer History of pulmonary embolism Social History Household Members: Significant Other Housing: Apartment Alcohol intake: never Patient Tobacco Use Status: Never used Tobacco e-Cigarette/Vaping Use: Never Used Second Hand Smoke Exposure: No service: No Current occupational status: employed and retired 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 1. Little interest or pleasure in doing things: not at all 2. Feeling down, depressed, or hopeless: not at all 3. Trouble falling or staying asleep, or sleeping too much: not at all 4. Feeling tired or having little energy: not at all 5. Poor appetite or overeating: not at all 6. Feeling bad about yourself - or that you are a failure or have let yourself or your family down: not at all 7. Trouble concentrating on things, such as reading the newspaper or watching television: not at all 8. Moving or speaking so slowly that other people could have noticed. Or the opposite - being so fidgety or restless that you have been moving around a lot more than usual: not at all 9. Thoughts that you would be better off or of hurting yourself in some way: not at all Total score: 0 Depression Screening Interpretation: Negative Depression Screening Done: Yes Source: Developed by Drs. Fox Dill, Holli Whitaker, Abelardo Wright and colleagues, with an educational gerard from [employer]. Thrive Questionnaire Date Thrive assessed: 10/27/23 I am a: Patient What is your living situation today?: I have a steady place to live Within the past 12 months, did the food you bought not last and you didn't have the money to get more?: Never true Within the past 12 months, did you worry whether your food would run out before you got money to buy more?: Never true Do you have trouble paying for medicines?: No Do you have trouble getting transportation to medical appointments?: No Do you have trouble paying your heating and electricity bill?: No Do you have trouble taking care of your child, family member or friend?: No Do you have trouble with day-to-day activities such as bathing, preparing meals, shopping, managing finances, etc.?: No Are you currently unemployed and looking for a job?: No Are you interested in more education?: No Currently or been in a relationship where the following occur: no concerns reported THRIVE Score: 0 AUDIT C Alcohol Use Questionnaire (AUDIT-C) 1. How often do you have a drink containing alcohol?: Never Total Score: 0 SHAYLA-7 AMB Questionnaire SHAYLA-7 Date SHAYLA - 7 assessed: 10/27/23 Feeling nervous, anxious, or on edge: 0 = Not at all Not being able to stop or control worryin = Not at all Worrying too much about different things: 0 = Not at all Trouble relaxin = Not at all Being so restless that it is hard to sit still: 0 = Not at all Becoming easily annoyed or irritable: 0 = Not at all Feeling afraid as if something awful might happen: 0 = Not at all Total SHAYLA-7 score (0-4 normal; 5-9 mild; 10-14 moderate; 15-21 severe): 0 Source: Developed by Holli Oleary Kurt Kroenke and colleagues, with an educational gerard from [employer]. Physical exam (Primary Care) Vital Signs: Last Vital Signs Pulse 58 10/27/23 08:54 BP 120/78 10/27/23 08:54 Pulse Ox 96 10/27/23 08:54 Oxygen Delivery Method Room Air 10/27/23 08:54 Care Plan Goal for BP management: Blood pressure is in range. BMI result Body Mass Index 24.9 Tobacco/Smoking Status: Tobacco use Status Tobacco use date assessed 10/27/23 10/27/23 09:04 Patient Tobacco Use Status Never used Tobacco 10/27/23 09:04 e-Cigarette/Vaping Use Never Used 10/27/23 09:04 PHQ-9: PHQ-9 Score PHQ-9: Total score 0 10/27/23 09:04 Depression Screening Interpretation: Negative Thrive Assessment: Date of Thrive Assessment Date Thrive assessed 10/27/23 10/27/23 09:04 Currently or been in a relationship where the following occur: no concerns reported Advance Care Planning discussion: Exists, not on file Date of discussion: 10/27/23 Who was present: Patient Forms completed: Health Care Proxy Time spent: 1-15 minutes, not on file Actual minutes spent: 5 Const General: cooperative and healthy appearing Nutritional Appearance: well nourished Orientation/consciousness: patient oriented x3 Limitations: no limitations HENMT Head: Yes normal to inspection Eyes General: appearance normal, both eyes and all related structures Neck Neck: Yes normal visual inspection Chest Chest palpation & inspection: normal palpation of entire chest wall Resp Effort & Inspection: normal respiratory effort Neuro General: patient oriented x3 Results AMB Hemoglobin A1c AMB Hemoglobin A1c 9.0 % Last Edit by CAYLA Dhaliwal on 10/27/23 09:05 Results Reviewed Results Reviewed: Laboratory Last Values Hgb A1c (Clinic) 9.0 % (4.0-6.0) H 10/27/23 08:52 Assessment and Plan Assessment & Plan (1) Diabetes type 2, uncontrolled: Code(s): E11.65 - Type 2 diabetes mellitus with hyperglycemia Plan: Patient was informed that her A1c is greater than 9. Her blood sugars and diabetes is managed from the endocrinology clinic. I encouraged her to get in touch with them and get the medications adjusted as soon as possible. (2) Osteoarthritis of left hip: Code(s): M16.12 - Unilateral primary osteoarthritis, left hip Plan: This condition is stable. (3) Stage 4 chronic kidney disease: Code(s): N18.4 - Chronic kidney disease, stage 4 (severe) Plan: Condition is stable. All care from the transplant home visit field care manager. Orders: Orders AMB Hemoglobin A1c Today E11.65 - Type 2 diabetes mellitus with hyperglycemia Coding Level of Care Code Est Pt Level 4 (91500) Diagnoses Diabetes type 2, uncontrolled E11.65 Osteoarthritis of left hip M16.12 Stage 4 chronic kidney disease N18.4 Additional Codes Vital Signs *Quality* - Advance Care Planning discussion: Exists, not on file ([id number]) Vital Signs *Quality* - Time spent: 1-15 minutes, not on file ([id number])
[2023-10-27 08:54] VITALS: BP 120/78; PULSE 58; O2SAT 96; BMI 24.9
== END 2023-10-27 09:27 | disposition home or self-care (01) ==
PROVIDERS: PCP Internal Medicine; Visit Provider Internal Medicine
DX: E11.65 Type 2 diabetes mellitus with hyperglycemia (principal); M16.12 Unilateral primary osteoarthritis, left hip; N18.4 Chronic kidney disease, stage 4 (severe); Z00.00 Encounter for general adult medical examination without abnormal findings
CPT/HCPCS: 1123F; 1124F; 83036; 99214

== ENCOUNTER 2023-11-17 07:50 | Day surgery (SDC) | payer BC, SELFPAY ==
--- NOTE | 2023-11-15 15:35 | P.CONAN_ITS ---
Documented by User: Monica Chin NP 11/15/23 15:36 HPI - Anesthesia Eval Consult details Narrative: 68yo F for Colonoscopy Anesthesia Pre-Procedure Meds Is the patient on any of the following meds?: GLP1/DPP4 and SGLT2 Inhib PMFSH Active Problems Active Problems: All Active Problems Stage 4 chronic kidney disease (Acute) Osteoarthritis of left hip (Acute) History of colon polyps (Acute) At high risk for breast cancer (Acute) Dyslipidemia (Acute) Diabetes type 2, uncontrolled (Acute) Lobular carcinoma in situ of left breast (Acute) Past Medical History Medical History (Updated 10/27/23 @ 09:37 by Armando Nobles MD) Osteoarthritis of left hip Dyslipidemia Diabetes type 2, uncontrolled Hypertension Hyperlipidemia Stage 4 chronic kidney disease Lobular carcinoma in situ of left breast Family History Family History Mother History of melanoma History of stomach cancer History of pulmonary embolism Surgical History Surgical History Hx of colonoscopy History of kidney transplant (06/09/18) History of lumpectomy of left breast History of left breast biopsy (04/2018) History of biopsy History of Mohs surgery for squamous cell carcinoma of skin History of endometrial ablation History of umbilical hernia repair Social History Social History Household Members: Significant Other Housing: Apartment Alcohol intake: never Patient Tobacco Use Status: Never used Tobacco e-Cigarette/Vaping Use: Never Used Second Hand Smoke Exposure: No Use of substances other than those prescribed or required for medical reasons: No Are you DNR?: No Advance Directives: No Advance Directives Information Provided: Yes service: No Current occupational status: employed and retired 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 Cognitive needs: No Hearing needs: No Vision needs: Yes (glasses) Meds Allergies Allergy/AdvReac Type Severity Reaction Status Date / Time oxycodone [From PERCOCET] Allergy Unknown NAUSEA & Verified 10/27/23 09:31 VOMITING semaglutide [From Rybelsus] AdvReac Vomiting Verified 10/27/23 09:31 Home Medications ?Medication ?Instructions ?Recorded ?Confirmed ?Last Taken ?Type magnesium oxide 400 mg (241.3 mg 400 mg PO DAILY 06/25/20 07/22/23 Unknown History magnesium) tablet metoprolol succinate 25 mg mg PO 06/25/20 07/22/23 Unknown History tablet,extended release 24 hr simvastatin 20 mg tablet 20 mg PO BEDTIME 06/25/20 07/22/23 Unknown History mycophenolate sodium 180 mg 360 mg PO BID 10/15/20 07/22/23 Unknown History tablet,delayed release tacrolimus 1 mg tablet,extended 2 mg PO DAILY 12/25/20 07/22/23 Unknown History release 24 hr blood sugar diagnostic (FreeStyle 05/18/21 07/22/23 Unknown History Lite Strips) lancets 28 gauge (FreeStyle 05/18/21 07/22/23 Unknown History Lancets) amlodipine 10 mg tablet 10 mg PO DAILY 07/27/23 Unknown History ascorbate calcium (vitamin C) 500 1 g PO Q6H 07/27/23 Unknown History mg tablet insulin glargine 100 unit/mL (3 unit subcut 07/27/23 Unknown History mL) subcutaneous pen (Lantus Solostar U-100 Insulin) metformin 500 mg tablet,extended 1,000 mg PO BID 07/27/23 Unknown History release 24 hr semaglutide 1 mg/dose (4 mg/3 mL) mg subcut 07/27/23 Unknown History subcutaneous pen injector (Ozempic) valsartan 80 mg tablet 80 mg PO DAILY 07/27/23 Unknown History Assessment and Plan Assessment Anesthesia Assessment: Chart Reviewed Documented by User: John Stevens MD 11/17/23 08:55 [facility] Past Medical History Medical History (Updated 10/27/23 @ 09:37 by Armando Nobles MD) Osteoarthritis of left hip Dyslipidemia Diabetes type 2, uncontrolled Hypertension Hyperlipidemia Stage 4 chronic kidney disease Lobular carcinoma in situ of left breast Family History Family History Mother History of melanoma History of stomach cancer History of pulmonary embolism Family history of problems with anesthesia: No Surgical History Surgical History Hx of colonoscopy History of kidney transplant (06/09/18) History of lumpectomy of left breast History of left breast biopsy (04/2018) History of biopsy History of Mohs surgery for squamous cell carcinoma of skin History of endometrial ablation History of umbilical hernia repair History of Problems with Anesthesia: No Social History Social History Household Members: Significant Other Housing: Apartment Alcohol intake: never Patient Tobacco Use Status: Never used Tobacco e-Cigarette/Vaping Use: Never Used Second Hand Smoke Exposure: No Use of substances other than those prescribed or required for medical reasons: No Are you DNR?: No Advance Directives: No Advance Directives Information Provided: Yes service: No Current occupational status: employed and retired 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 Cognitive needs: No Hearing needs: No Vision needs: Yes (glasses) Meds Allergies Allergy/AdvReac Type Severity Reaction Status Date / Time oxycodone [From PERCOCET] Allergy Unknown NAUSEA & Verified 10/27/23 09:31 VOMITING semaglutide [From Rybelsus] AdvReac Vomiting Verified 10/27/23 09:31 Home Medications ?Medication ?Instructions ?Recorded ?Confirmed ?Last Taken ?Type magnesium oxide 400 mg (241.3 mg 400 mg PO DAILY 06/25/20 07/22/23 Unknown History magnesium) tablet metoprolol succinate 25 mg mg PO 06/25/20 07/22/23 Unknown History tablet,extended release 24 hr simvastatin 20 mg tablet 20 mg PO BEDTIME 06/25/20 07/22/23 Unknown History mycophenolate sodium 180 mg 360 mg PO BID 10/15/20 07/22/23 Unknown History tablet,delayed release tacrolimus 1 mg tablet,extended 2 mg PO DAILY 12/25/20 07/22/23 Unknown History release 24 hr blood sugar diagnostic (FreeStyle 05/18/21 07/22/23 Unknown History Lite Strips) lancets 28 gauge (FreeStyle 05/18/21 07/22/23 Unknown History Lancets) amlodipine 10 mg tablet 10 mg PO DAILY 07/27/23 Unknown History ascorbate calcium (vitamin C) 500 1 g PO Q6H 07/27/23 Unknown History mg tablet insulin glargine 100 unit/mL (3 unit subcut 07/27/23 Unknown History mL) subcutaneous pen (Lantus Solostar U-100 Insulin) metformin 500 mg tablet,extended 1,000 mg PO BID 07/27/23 Unknown History release 24 hr semaglutide 1 mg/dose (4 mg/3 mL) mg subcut 07/27/23 Unknown History subcutaneous pen injector (Ozempic) valsartan 80 mg tablet 80 mg PO DAILY 07/27/23 Unknown History Exam Airway Mallampati Class: III TM Dist: <=3cm Neck ROM: Full Partial: Upper Loose/Missing/Broken Teeth: No Heart: rrr Lungs: cta Assessment and Plan Final Anesthetic Review Family History of Problems with Anesthesia: No History of Problems with Anesthesia: No NPO: Yes ASA Class: II and III Final Preanesthetic Review: No Changes in Pt Med Stat, Meds/Allgs Chart Reviewed, Consent Obtained/Reviewed and Anes Risks/Benef Reviewed Patient Risk: Intermediate Procedure Risk: Intermediate Anesthetic Plan Anesthetic Plan: MAC: Disposition: Standard PACU
[2023-11-16 09:00] VITALS: BMI 25.0
--- NOTE | 2023-11-17 08:27 | MHC.SHP ---
Pre-Procedural Eval Section A - 24 Hr Update-Section A only Date of Service: 11/17/23 Section B - Complete if H&P > 30 days Chief Complaint: Personal history of colonic polyps Relevant Family History (Specify if Yes): No Relevant Social History: None Present Medications: see Short Stay Collaborative assessment Medical History: Significant History (Osteoarthritis of left hip Dyslipidemia Diabetes type 2, uncontrolled Hypertension Hyperlipidemia Stage 4 chronic kidney disease Lobular carcinoma in situ of left breast) History of Previous Operations: Relevant previous surgery/procedure and date(s) (Hx of colonoscopy History of kidney transplant (06/09/18) History of lumpectomy of left breast History of left breast biopsy (04/2018) History of biopsy History of Mohs surgery for squamous cell carcinoma of skin History of endometrial ablation History of umbilical hernia repair) Allergies: Allergies Allergy/AdvReac Type Severity Reaction Status Date / Time oxycodone [From PERCOCET] Allergy Unknown NAUSEA & Verified 10/27/23 09:31 VOMITING semaglutide [From Rybelsus] AdvReac Vomiting Verified 10/27/23 09:31 Review of Systems Sugical H&P ROS: Negative: Constitution, Cardiovascular, Respiratory, Neurological, Psychiatric, Hem-Onc, Allergic/Immunologic, Gastrointestinal, Genitourinary, Musculoskeletal, Integumentary, Endocrine and Eyes/Ears/Nose/Throat Exam Surgical H&P Exam: Normal: HEENT, Normal: Heart, Normal: Lungs, Normal: Extremities, Normal: Abdomen, Normal: Skin and Normal: Neurological Plan Diagnosis/Plan: Unchanged I have reviewed the history and physical and performed a pertinent physical examination on my patient. No changes have occurred unless specified. Time Spent With Patient Time: Total time managing care of this patient today ____ minutes.
[2023-11-17 08:43] VITALS: BP 140/84; PULSE 90; RESP 16; TEMP 36.9; O2SAT 96; BMI 24.9
--- NOTE | 2023-11-17 08:44 | PM.ANESPN ---
Subjective Subjective Date of Service: 11/17/23 Patient reports: shortness of breath Physical Exam Vital Signs: Vital Signs: BMI result Body Mass Index 25.0 Progress Note: A&P Time Spent With Patient Time: Total time managing care of this patient today ____ minutes. Procedures Date of Service Date of Service: 11/17/23
[2023-11-17] MEDS: Lactated Ringers 1,000 ML 100 ML IVCONT (08:59)
[2023-11-17 09:02] LABS: Anion Gap 13 (12-20); Blood Urea Nitrogen 16 mg/dL (9-16); Calcium 10.1 mg/dL (8.4-10.2); Carbon Dioxide 21 mmol/L (22-29); Chloride 112 mmol/L (96-108); Creatinine Clr Calc Pharmacy 60.4; Estimated Glomerular Filt Rate > 60; Glucose Fasting 135 mg/dL (60-99); Potassium 4.4 mmol/L (3.3-5.1); Sodium 142 mmol/L (135-145)
--- NOTE | 2023-11-17 09:18 | P.OPN-COLO_ITS ---
Colonoscopy Operative Note Operative Note Date of Service: 11/17/23 Narrative: Operative Information Procedure Description: Colonoscopy Indication: hx of colon polyps Anesthesia: MAC COLONOSCOPY Instrument: Olympus variable stiffness pediatric scope 190L Colonoscopy Monitoring: Vital signs and clinical assessment, continuous EKG monitoring, Pulse oximetry, Carbon Dioxide monitoring and blood pressure monitoring were done throughout the procedure. Colon withdrawal time was 18 minutes. Procedure: The patient was placed in the left lateral decubitis position and pre-procedure medications were administered. After a digital rectal examination of the ano-rectum, the video colonoscope was inserted into the rectum and advanced through the colon to the cecum/TI. The colonoscope was slowly withdrawn in a retrograde panoramic fashion and the colon mucosa was carefully examined including a retroflexed view of the rectum. Findings and interventions are described below. Procedure Difficulty: difficult Findings: Terminal Ileum- superficially intubated, normal Cecum:normal Ascending Colon: moderate diverticulosis Transverse Colon -normal Descending Colon: moderate diverticulosis Sigmoid Colon: severe diverticulosis with tight lumen Rectum: Retroflexion with small internal hemorrhoids seen, grade I Anorectum - normal Intervention: none Colon preparation: [place] Bowel Preparation Scale Right colon; 1-2 Transverse colon: 2 Left colon; 2 (0 = Unprepared colon segment with mucosa not seen due to solid stool that cannot be cleared. 1 = Portion of mucosa of the colon segment seen, but other areas of the colon segment not well seen due to staining, residual stool and/or opaque liquid. 2 = Minor amount of residual staining, small fragments of stool and/or opaque liquid, but mucosa of colon segment seen well. 3 = Entire mucosa of colon segment seen well with no residual staining, small fragments of stool or opaque liquid) Impression and Post Procedure Diagnosis: diverticulosis internal hemorrhoids Plan: High fiber diet leaflet Avoid straining at stool, epsom salts and sitz bath, anusol supps or cream Repeat Colonoscopy in 5 years due to right sided fair prep or earlier if clinically indicated Above findings were reviewed with the patient and relevant handouts were provided if indicated.
[2023-11-17 10:00] VITALS: BP 109/75; PULSE 87; RESP 18; TEMP 36.1; O2SAT 99
[2023-11-17 10:15] VITALS: BP 118/76; PULSE 88; RESP 18; TEMP 36.8; O2SAT 96
== END 2023-11-17 10:35 | disposition home or self-care (01) ==
PROVIDERS: Nurse Practitioner; PCP Internal Medicine; Visit Provider Internal Medicine Gastroenterology
PROC: 0DJD8ZZ Inspection of Lower Intestinal Tract, Via Natural or Artificial Opening Endoscopic (ICD-10-PCS; CPT 45378; principal; 2023-11-17 09:40)
DX: Z12.11 Encounter for screening for malignant neoplasm of colon (principal); K57.30 Diverticulosis of large intestine without perforation or abscess without bleeding; K64.0 First degree hemorrhoids; Z86.010 Personal history of colon polyps; E11.22 Type 2 diabetes mellitus with diabetic chronic kidney disease; I12.9 Hypertensive chronic kidney disease with stage 1 through stage 4 chronic kidney disease, or unspecified chronic kidney disease; N18.4 Chronic kidney disease, stage 4 (severe); Z94.0 Kidney transplant status; Z88.5 Allergy status to narcotic agent
CPT/HCPCS: 45378; 36415; 80048; J2704

== ENCOUNTER → 2023-11-17 07:50 | Outpatient (BNV) | payer BC, SELFPAY | PROVIDERS: PCP Internal Medicine; Visit Provider Internal Medicine Gastroenterology | DX: Z12.11 Encounter for screening for malignant neoplasm of colon (principal); Z86.010 Personal history of colon polyps; K57.30 Diverticulosis of large intestine without perforation or abscess without bleeding; K64.0 First degree hemorrhoids | CPT/HCPCS: 45378 ==

== ENCOUNTER 2023-12-01 09:42 | Outpatient (AMB) | payer BC, SELFPAY ==
--- NOTE | 2023-12-01 09:48 | A.OFFVIS_ITS ---
Vital Signs 12/01/23 09:50 Height 5 ft 2 in Weight 136 lb 10.986 oz BMI 25.0 BP 138/79 Blood Pressure Location Lt brachial Position Sitting Pulse 93 Intake Visit Reasons: S/p colon Intake Note: Janell presents in the office as a follow up colonoscopy. CC: no concerns - just here today for results. Cutter Banana Room Required: No Allergies oxycodone [From PERCOCET] Allergy (Unknown, Verified 12/01/23 09:50) NAUSEA & VOMITING semaglutide [From Rybelsus] Adverse Reaction (Verified 12/01/23 09:50) Vomiting Medication List - Last Reconciled 12/01/23 by MELISSA Pathak-Min amlodipine 10 mg PO DAILY ascorbate calcium (vitamin C) 1 g PO Q6H blood sugar diagnostic (FreeStyle Lite Strips) As directed once daily cholecalciferol (vitamin D3) 25 mcg PO DAILY dapagliflozin propanediol (Farxiga) 10 mg PO DAILY 90 days insulin glargine (Lantus Solostar U-100 Insulin) units subcut lancets (FreeStyle Lancets) As directed once daily lancets (FreeStyle Lancets) daily magnesium oxide 400 mg PO DAILY metformin ER 1,000 mg PO BID metoprolol succinate ER mg PO mycophenolate sodium 360 mg PO BID pen needle, diabetic (BD Ultra-Fine Gill Pen Needle) As directed once daily semaglutide (Ozempic) mg subcut simvastatin 20 mg PO BEDTIME tacrolimus XR (Envarsus XR) 4 mg PO DAILY valsartan 80 mg PO DAILY HPI Comments Details: 68-year-old female personal history of colon polyps follows up after recent polyp surveillance colonoscopy She tolerated procedures well She has a normal bowel pattern she eats healthy she has not had any issues with constipation Reviewed procedure report, and recommendation No nausea, vomiting, hematemesis, hematochezia fever or chills PFSH Medical History Osteoarthritis of left hip Dyslipidemia Diabetes type 2, uncontrolled Hypertension Hyperlipidemia Stage 4 chronic kidney disease Lobular carcinoma in situ of left breast Surgical History Hx of colonoscopy History of kidney transplant (06/09/18) History of lumpectomy of left breast History of left breast biopsy (04/2018) History of biopsy History of Mohs surgery for squamous cell carcinoma of skin History of endometrial ablation History of umbilical hernia repair Family History Mother History of melanoma History of stomach cancer History of pulmonary embolism Social History Household Members: Significant Other Housing: Apartment Alcohol intake: never Patient Tobacco Use Status: Never used Tobacco e-Cigarette/Vaping Use: Never Used Second Hand Smoke Exposure: No service: No Current occupational status: employed and retired 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 Cognitive needs: No Hearing needs: No Vision needs: Yes (glasses) Review of Systems Const All systems reviewed & are unremarkable except as noted in HPI and below Physical Exam Vital Signs: Last Vital Signs Pulse 93 12/01/23 09:50 BP 138/79 12/01/23 09:50 BMI result Body Mass Index 25.0 Const General: cooperative, healthy appearing, comfortable and no acute distress Orientation/consciousness: patient oriented x3 Limitations: no limitations Neuro General: patient oriented x3 Psych Appearance: grossly normal and well kempt Mental Status: mental status grossly normal Speech and movement: Normal speech and movement present and Clear speech present Affect: normal affect Attitude: cooperative Thought process: Normal thought process present Thought content: Normal thought content present Insight: Good insight present (Psych) Judgement: Good judgement present (Psych) Results Reviewed Results Reviewed: Impression and Post Procedure Diagnosis: diverticulosis internal hemorrhoids Plan: High fiber diet leaflet Avoid straining at stool, epsom salts and sitz bath, anusol supps or cream Repeat Colonoscopy in 5 years due to right sided fair prep or earlier if clinically indicated Assessment & Plan Assessment & Plan (1) Diverticulosis of colon: Code(s): K57.30 - Diverticulosis of large intestine without perforation or abscess without bleeding Category: Medical Plan: ER protocol Maintain high-fiber (2) Hemorrhoids: Code(s): K64.9 - Unspecified hemorrhoids Category: Medical Plan: HFD Avoid straining (3) History of colon polyps: Code(s): Z86.010 - Personal history of colonic polyps Category: Medical Plan: 5 year repeat Plan HFD ER protocol 5 year Patient Instructions: Repeat asymptomatic colonoscopy 5 diverticulosis/diverticulitis ER protocol review Maintain high-fiber diet Foods to his avoid nuts, seeds, popcorn, corn ETC Avoid straining with hemorrhoid Encouraged to call with any questions or concerns Coding Level of Care Code Est Pt Level 3 (29709) Diagnoses Diverticulosis of colon K57.30 Hemorrhoids K64.9 History of colon polyps Z86.010 Time Spent (min) 20
[2023-12-01 09:50] VITALS: BP 138/79; PULSE 93; BMI 25.0
== END 2023-12-01 10:08 | disposition home or self-care (01) ==
PROVIDERS: PCP Internal Medicine; Visit Provider Physician Assistant
DX: K57.30 Diverticulosis of large intestine without perforation or abscess without bleeding (principal); K64.9 Unspecified hemorrhoids; Z86.010 Personal history of colon polyps
CPT/HCPCS: 99213

== ENCOUNTER → 2023-12-01 09:42 | Outpatient (BNVA) | payer BC, SELFPAY | PROVIDERS: PCP Internal Medicine; Visit Provider Physician Assistant ==

== ENCOUNTER 2024-01-04 10:58 | Outpatient (REF) | payer BC, SELFPAY ==
--- NOTE | ~2024-01-04 | MR_ITS ---
EXAMINATION: MR BREAST WITHOUT AND WITH CONTRAST, BILATERAL CLINICAL INFORMATION: 68-year-old patient with high risk for breast cancer, history of left breast lobular carcinoma in situ status post surgical excision. COMPARISON: 12/31/2022 breast MRI TECHNIQUE: Imaging was performed with a dedicated breast coil. Prior to the administration of contrast, bilateral axial T1 and bilateral axial T2 weighted sequences were obtained. After the uneventful administration of?6 mL of Gadavist, dynamic contrast-enhanced VIBRANT series through the breasts in the axial plane were performed. Subtracted images were performed and reviewed. A delayed sagittal sequence through both breasts was acquired. Additionally, CAD post-processing, including maximum intensity projections, 3-D reconstructions and kinetic analysis, were performed an independent workstation and reviewed by the interpreting radiologist is a portion of this exam. FINDINGS: Composition of the breast is of scattered fibroglandular tissues. There is minimal background parenchymal enhancement. LEFT BREAST: Left lateral breast are stable postsurgical distortion. No rapidly enhancing suspicious masses or other MR abnormalities. RIGHT BREAST: No rapidly enhancing suspicious masses or other MR abnormalities. There is no suspicious internal mammary chain or axillary adenopathy. Limited views of the chest and abdomen are unremarkable. MR/MR breast BI wo/w con IMPRESSION: No MR specific evidence of malignancy. ASSESSMENT: LEFT BREAST: BI-RADS 2-Benign RIGHT BREAST: BI-RADS 1-Negative RECOMMENDATIONS: Annual mammogram. Annual breast MRI.
[2024-01-04] MEDS: gadobutroL 7.5 ML VIAL IVPUSH (12:40)
== END 2024-01-04 10:59 | disposition home or self-care (01) ==
LOC: HO.MRI 10:58
PROVIDERS: PCP Internal Medicine; Visit Provider Surgery
DX: D05.02 Lobular carcinoma in situ of left breast (principal); Z91.89 Other specified personal risk factors, not elsewhere classified
CPT/HCPCS: 77049; A9585

== ENCOUNTER 2024-02-07 09:20 | Outpatient (AMB) | payer BC, SELFPAY ==
--- NOTE | 2024-02-07 09:22 | A.OFFVIS_ITS ---
Vital Signs 02/07/24 09:24 Height 5 ft 2 in Weight 138 lb 0.15 oz BMI 25.2 BP 126/79 Blood Pressure Location Rt brachial Position Sitting Pulse 100 Intake Visit Reasons: 6m br exam Intake Note: Janell presents in the office as a 6month follow up for a BR exam. CC: She states that she is not having any concerns. Field Recorder Required: No Allergies oxycodone [From PERCOCET] Allergy (Unknown, Verified 02/07/24 09:28) NAUSEA & VOMITING semaglutide [From Rybelsus] Adverse Reaction (Verified 02/07/24 09:28) Vomiting Medication List - Last Reconciled 02/07/24 by Brian Lyn MD amlodipine 10 mg PO DAILY blood sugar diagnostic (FreeStyle Lite Strips) As directed once daily cholecalciferol (vitamin D3) 50 mcg PO DAILY dapagliflozin propanediol (Farxiga) 10 mg PO DAILY 90 days insulin glargine (Lantus Solostar U-100 Insulin) units subcut lancets (FreeStyle Lancets) As directed once daily lancets (FreeStyle Lancets) daily magnesium oxide 400 mg PO DAILY metformin ER 1,000 mg PO BID metoprolol succinate ER mg PO mycophenolate sodium 360 mg PO BID pen needle, diabetic (BD Ultra-Fine Gill Pen Needle) As directed once daily semaglutide (Ozempic) mg subcut simvastatin 20 mg PO BEDTIME tacrolimus XR (Envarsus XR) 2 mg PO DAILY valsartan 80 mg PO DAILY HPI Comments Details: 68-year-old female patient returning for follow-up breast examination. She was initially diagnosed with ADH in the left breast and subsequently underwent needle localization of the left breast lumpectomy on 07/18/2018. She was determined to have LCIS. She was evaluated by Medical Oncology and Radiation Oncology. No radiation therapy was felt to be required. Follow-up bilateral mammography on 05/19/2020 revealed only benign findings (BI-RADS 2). Her Ty[place]- Cuz[place] lifetime risk of breast cancer however was determined to be 40%, well above the 20% threshold for high risk. Her most recent breast MRI of 01/04/2024 revealed no MR specific evidence of malignancy (left BI-RAD 2, right BI-RADS 1). Revealed no MR specific evidence of malignancy (BI-RADS 2 bilateral). Her most recent mammogram of 06/23/2023 revealed no mammographic evidence of malignancy (BI-RADS 2). One year follow-up mammography is recommended. She denies any new breast symptoms and generally feels well from her transplant standpoint. 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 Surgical History Hx of colonoscopy History of kidney transplant (06/09/18) History of lumpectomy of left breast History of left breast biopsy (04/2018) History of biopsy History of Mohs surgery for squamous cell carcinoma of skin History of endometrial ablation History of umbilical hernia repair Family History Mother History of melanoma History of stomach cancer History of pulmonary embolism Social History Household Members: Significant Other Housing: Apartment Alcohol intake: never Patient Tobacco Use Status: Never used Tobacco e-Cigarette/Vaping Use: Never Used Second Hand Smoke Exposure: No service: No Current occupational status: employed and retired 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 Cognitive needs: No Hearing needs: No Vision needs: Yes (glasses) Review of Systems Const Denies chills, Denies fever(s), Denies headache(s) and Denies poor appetite ENT Denies dizziness and Denies headache(s) Card Denies chest pain, Denies rapid heart rate, Denies palpitations and Denies slow heart rate Resp Denies chest congestion, Denies cough, Denies pain on inspiration and Denies wheezing GI Denies abdominal pain, Denies bloating, Denies change in stool character, Denies constipation, Denies diarrhea, Denies nausea, Denies vomiting and Denies hematemesis Musc Denies back pain, Denies arthralgias, Denies joint swelling and Denies numbness Skin/Breast Denies breast skin changes, Denies breast pain, Denies breast mass, Denies change in pigmentation, Denies erythema and Denies rash Neuro Denies confusion, Denies dizziness, Denies headache(s) and Denies numbness Psych Denies anxiety, Denies confusion and Denies depression Endo Denies palpitations Lee/Lymph Denies easy bleeding, Denies easy bruising and Denies lymphadenopathy Aller/Immun Denies wheezing Physical Exam Vital Signs: Last Vital Signs Pulse 100 02/07/24 09:24 BP 126/79 02/07/24 09:24 BMI result Body Mass Index 25.2 Const General: No confusion Nutritional Appearance: well nourished Orientation/consciousness: No confusion Eyes Sclerae: sclerae normal EOM: EOMs intact bilaterally Neck Neck: Yes normal visual inspection and Yes no lymphadenopathy Chest Other: Left breast: Well-healed incision in the upper outer quadrant left breast with no palpable mass, skin change, nipple discharge, nipple retraction, or enlarged lymph nodes in either breast. Right breast: No skin change, nipple discharge, nipple retraction, palpable mass, or enlarged lymph nodes. 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 Patient is felt to be high risk for breast cancer and is being followed twice yearly with clinical breast examination, and yearly MRI and mammography. Her most recent MRI of 01/04/2024 revealed no MR specific evidence of malignancy (left BI-RADS 2, right BI-RADS 1) and mammogram of 06/23/2023 revealing no mammographic evidence of malignancy (BI-RADS 2). Examination today revealed no suspicious findings in either breast and no new symptoms. I recommended follow-up examination in 6 months. 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
[2024-02-07 09:24] VITALS: BP 126/79; PULSE 100; BMI 25.2
== END 2024-02-07 10:01 | disposition home or self-care (01) ==
PROVIDERS: PCP Internal Medicine; Visit Provider Surgery
DX: D05.02 Lobular carcinoma in situ of left breast (principal); Z91.89 Other specified personal risk factors, not elsewhere classified
CPT/HCPCS: 99213

== ENCOUNTER → 2024-02-07 09:20 | Outpatient (BNVA) | payer BC, SELFPAY | PROVIDERS: PCP Internal Medicine; Visit Provider Surgery ==

== ENCOUNTER 2024-06-28 09:35 | Outpatient (REF) | payer BC, SELFPAY ==
--- OUTSIDE RECORDS SUMMARY | 2024-06-28 09:39 | XMS_ITS ---
Author Name [facility] Organization Unknown Problems Problem Status Onset Date Problem Type Date of Resoluti on Source Complication of transplanted kidney, unspecified complication [facility]
== END 2024-06-28 09:36 | disposition home or self-care (01) ==
LOC: HO.MAMMO 09:35
PROVIDERS: PCP Internal Medicine; Visit Provider Internal Medicine
DX: Z12.31 Encounter for screening mammogram for malignant neoplasm of breast (principal)
CPT/HCPCS: 77063; 77067

== ENCOUNTER → 2024-06-28 09:45 | Outpatient (BNV) | payer BC, SELFPAY | PROVIDERS: PCP Internal Medicine; Visit Provider Internal Medicine | DX: Z12.31 Encounter for screening mammogram for malignant neoplasm of breast (principal) | CPT/HCPCS: 77063; 77067 ==

== ENCOUNTER 2024-08-07 08:39 | Outpatient (REF) | payer BC, SELFPAY ==
--- NOTE | ~2024-08-07 | MM_ITS ---
EXAMINATION: MM DIAGNOSTIC DIGITAL BREAST TOMOSYNTHESIS, RIGHT CLINICAL INFORMATION: Call back from screening for asymmetry in the superior right breast on MLO view question skin mole. COMPARISON: Mammography: Comparison is made with available prior examinations. TECHNIQUE: Digital breast tomosynthesis is performed in both the craniocaudal and mediolateral oblique views along with computer-aided detection (CAD). Synthesized 2D images are generated from the tomosynthesis. FINDINGS: There are scattered areas of fibroglandular density (ACR BI-RADS breast composition Category b). Previously seen asymmetry in the superior right breast middle depth on MLO view localizes to the scan and a normal marker was placed correlating with a skin mole. There are no significant masses, abnormal calcifications, or other abnormalities. MM/MM tomosynthesis added views R IMPRESSION: No mammographic evidence of malignancy. Skin mole on mammography correlated with the asymmetry. Benign. ASSESSMENT: BI-RADS BI-RADS 2 - Benign Findings RECOMMENDATION: 1 year F/U Results were provided to the patient at time of visit by the technologist. This patient's information was entered into a reminder system with a target due date for their next mammogram. Electronically signed by: Amairani Chapman DO 08/07/2024 09:09 AM DARRYN
--- OUTSIDE RECORDS SUMMARY | 2024-08-07 09:02 | XMS_ITS | Encounter Summary ---
Author Organization [facility] Address [address] [facility] [address] [place] [address] Phone Care Team Providers Care Base Ply Hand Name Role Phone Armando Nobles MD Primary Care Provider + Reason for Visit * Reason Comments Med Refill Encounter Details Date Type Department Care Team (Late Contact Info) Description 07/13/2023 Refill [facility] [address] [facility] [address] [place] [address] Rachel Alberts MD Hypertension (Primary Dx) Social History Tobacco Use Types Packs/Day Years Used Date Smoking Tobacco: Former Cigarettes Q uit: 07/11/2013 Smokeless Tobacco: Never Comments:Smoking History Inf o:Every day Alcohol Use Standard Drinks/Week Comments No 0 (1 standard drink = 0.6 oz pur e alcohol) Education Answer Date Recorded What is the highest level of school you have completed or the highest degree you have received? 12th grade 09/24/2020 Comments No Sex and Gender Information Value Date Recorded Sex Assigned at Not on file Legal Sex Female 5:13 PM EST Gender Identity Not on file Sexual Orientation Not on file Occupation Industry Job Start Date Job End Date [employer] Not on file Not on file Not on file documented as of this encounter Plan of Treatment Upcoming Encounters Date Type Department Care Team (Late Contact Info) Description 08/15/2024 10:15 AM EST Office Visit [facility] [address] [facility] [address] [place] [id number] Rory Gudino MD [address] [address] 08/18/2024 Orders Only [facility] [address] [address] Rory Gudino MD [address] [address] Kidney transplant status; History of renal transplant documented as of this encounter Visit Diagnoses Diagnosis Hypertension- Primary Kidney transplant status History of renal transplant documented in this encounter Care Teams Base Ply Hand Relationship Specialty Start Date End Date Armando Nobles MD [address] [address] PCP - General Internal Medicine 11/19/21 documented as of this encounter
--- OUTSIDE RECORDS SUMMARY | 2024-08-07 09:02 | XMS_ITS | Patient Health Record ---
Author Organization [facility] Address [address] [place] [address] Care Team Providers Care Simulation Specialist Name Role Phone APURVA WISEMAN Primary Care Provider Parvez Mercado Jr Unavailable [phone] REASON FOR REFERRAL No Information MEDICATIONS Medication SIG (Take, Route, Frequency, Duration) Notes Start Date End Date Status Metoprolol Succinate ER 50 MG 1 tablet Orally Once a day Active Sensipar 60 MG 1 tablet after a heather l with food Orally Once a day Active Simvastatin 20 MG 1 tablet in the even ing Orally Once a day Active Colyte with Flavor Packs 240 GM As directed Orally Over the specified time. for 1 day(s) 05/26/2016 Active Calcitriol 0.25 MCG 1 capsule Orally Onc e a day Active Valsartan 160 MG 1 tablet Orally Once a day Active Vitamin D 1000 UNIT 1 tablet Orally Once a day Active Dialyvite 800 0.8 MG 1 tablet Orally Onc e a day Active Renvela 800 MG TAKE 1 TABLET BY [place] TH 3 TIMES A DAY WITH MEALS Oral Three times a day Active amLODIPine Besylate 5 MG 1 tablet Orally Once a day Active IMMUNIZATIONS Vaccine Route Administration Date Status Comme nts Flu vaccine no Preserv 3 and > Unknown 04/20/2016 Admin istered SOCIAL HISTORY Sex Assigned At : Social History Observation Description Sex Assigned At Unknown PROBLEMS Problem Type ICD Code Onset Dates Problem Status W/U Status Risk SNOMED Code Notes Problem Colon cancer screening (Z12.11) Active confirmed 479412600 Problem Diverticulosis of large intestine without hemorrhage (K57.30) Active confirmed 852348695 PLAN OF TREATMENT Future Test Test Name Order Date COLONOSCOPY 05/26/2016 Insurance Providers Payer Name Payer Address Payer Phone Subscriber Number Group Number Insured Name Patient Relationship to Insured Coverage Start Date Coverage End Date MEDICARE OF [place] [address] [place] [id number] ROLANDA LUCIO Self - patient is the insured [employer] [address] [place] [phone] [id number] ROLANDA LUCIO Self - patient is the insured MEDICAL (GENERAL) HISTORY Medical History History ICD Code colonoscopy 08-29-2009, tubular adenoma x 2, followup 3 years chronic kidney disease, peritoneal dialy sis elevated blood pressure elevated cholesterol hyperparathyroidism migraine headaches Denies TX,DM,CVA,Lung disease
--- OUTSIDE RECORDS SUMMARY | 2024-08-07 09:02 | XMS_ITS | Clinical Summary ---
Author Organization [facility] Address [address] [place] [id number] Care Team Providers Care Veterinary Parasitologist Name Role Phone Armando Nobles MD Primary Care Provider Lilliana vailable Social History Tobacco Use Types Packs/Day Years Used Date Smoking Tobacco: Never Assessed Sex and Gender Information Value Date Recorded Sex Assigned at Female 12/14/2022 9:36 AM EDT Gender Identity Female 12/14/2022 9:36 AM EDT Sexual Orientation Heterosexual (straight) 12/14 9:36 AM EDT Plan of Treatment Health Maintenance Due Date Last Done Comments Hepatitis C Virus Screening 1955 Physical 1974 DTaP/Tdap/Td Vaccines (1 - Tdap) 1975 Mammogram 1996 Colonoscopy 2001 Pneumococcal Vaccines 50+ (1 of 1 - PCV) 2006 Zoster (Shingles) Vaccine (1 of 2) 2006 DXA Bone Density (Females,Ages 65 and older) 2021 Influenza Vaccine 02/09/2024 03/17/2020, 04/17/2013, 04/17/2013 COVID-19 Vaccine (1 - 2023-2 5 season) 2024 RSV Vaccine 60 years and older and Patients (1 - 1-dose 75+ series) 2031 Hepatitis B Vaccines Aged Out No long er eligible based on patient's age to complete this topic Care Teams Veterinary Parasitologist Relationship Specialty Start Date End Date Armando Nobles MD PCP - General Internal Medicine 12/14/22
--- OUTSIDE RECORDS SUMMARY | 2024-08-07 09:02 | XMS_ITS | Clinical Summary ---
Author Organization [facility] Address [address] [address] Phone Care Team Providers Care Consulting Property Manager Name Role Phone Armando Nobles MD Primary Care Provider + Allergies No known active allergies Medications FREESTYLE LITE test strip 08/27/19 21 Active Lancets (freestyle) lancets 09/19/19 21 Active calcitriol (ROCALTROL) 0.5 MCG capsule Take 0.5 mcg by mouth 1 (one) time each day Active Lantus SoloStar 100 UNIT/ML injection if needed 12/12/19 22 Active simvastatin (ZOCOR) 20 MG tablet TAKE ONE TABLET BY MOUTH AT BEDTIME 30 tablet 11/04/19 23 Active Additional Information Patient taking differently: 25 mg, Pt taking 25 mg, Reported on 01/20/2024 metFORMIN (GLUCOPHAGE) 500 MG tablet TAKE ONE TABLET BY MOUTH TWO TIMES A DAY WITH MEALS 60 tablet 11 04/11/20 23 Active Ozempic, 1 MG/DOSE, 4 MG/3ML solution pen-injector Inject 1 mg under the skin 07/20/19 24 Active Magnesium 400 MG tabletIndicatio ns:Hypomagnesem ia Take 400 mg by mouth in the morning and 400 mg in the evening. 60 tablet 11 09/06/19 24 025 Active Tacrolimus ER (Envarsus XR) 4 MG tablet sustained-relea se 24 hour Take 6 mg by mouth 1 (one) time each day 30 tablet 10/04/19 24 025 Active D2000 Ultra Strength 50 MCG (1999 UT) capsuleIndicati ons:Long-term drug therapy TAKE ONE CAPSULE BY MOUTH ONCE DAILY 30 capsule 11 12/15/19 24 Active metoprolol succinate XL (TOPROL XL) 25 MG 24 hr tabletIndicatio ns:Hypertension TAKE 1/2 TABLETS BY MOUTH ONCE DAILY 15 tablet 11 12/15/19 24 Active sodium bicarbonate 650 MG tablet TAKE 1 TABLET BY MOUTH IN THE MORNING, AT NOON, 1 TABLET IN THE EVENING, AND 1 TABLET BEFORE BEDTIME 360 tablet 01/20/20 24 Active Farxiga 10 MG tabletIndicatio ns:Type 2 diabetes mellitus with other diabetic kidney complication (HCC),Kidney replaced by transplant Take 10 mg by mouth 1 (one) time each day 30 tablet 3 05/08/20 24 025 Active amLODIPine (NORVASC) 10 MG tabletIndicatio ns:Hypertension Take 1 tablet (10 mg total) by mouth 1 (one) time each day 90 tablet 3 06/27/20 24 Active mycophenolate (MYFORTIC) 180 MG EC tablet TAKE 3 TABLET BY MOUTH EVERY MORNING AND EVERY EVENING 180 tablet 07/23/19 25 Active Envarsus XR 1 MG tablet sustained-relea se 24 hour TAKE 2 TABLETS BY MOUTH ONCE DAILY 60 tablet 07/23/19 25 Active magnesium oxide (MAG-OX) 400 MG tablet TAKE ONE TABLET BY MOUTH EVERY MORNING AND TAKE ONE TABLET BY MOUTH EVERY EVENING 60 tablet 07/23/19 25 Active valsartan (DIOVAN) 80 MG tablet TAKE 1 TABLET (80 MG TOTAL) BY MOUTH 1 (ONE) TIME EACH DAY 30 tablet 10 07/23/19 25 026 Active valsartan (Diovan) 80 MG tablet Take 1 tablet (80 mg total) by mouth 1 (one) time each day 30 tablet 3 04/10/20 24 025 Discontinued Tacrolimus ER 1 MG tablet sustained-relea se 24 hour Take 2 mg by mouth 1 (one) time each day 60 tablet 3 04/10/20 24 025 Discontinued mycophenolate (MYFORTIC) 180 MG EC tablet TAKE THREE TABLETS BY MOUTH EVERY MORNING AND TAKE THREE TABLETS EVERY EVENING 180 tablet 2 04/25/20 24 025 Discontinued Active Problems Problem Noted Date Diagnosed Date Immunosuppression 11/24/2022 Essential (primary) hypertension 11/24/2022 Type 2 diabetes mellitus wit h other diabetic kidney complication 08/12/2021 Kidney transplant status 08/19/2020 History of renal transplant 06/09/2018 Overview (05/19/2022): [facility] induction Atypical ductal hyperplasia of breast 05/25/2018 Overview (05/19/2022): [facility] Anemia in chronic kidney disease 05/23/2013 Iron deficiency anemia 05/23/2013 Proteinuria 05/23/2013 Resolved Problems Problem Noted Date Diagnosed Date Resolved Date Acute nontraumatic kidney injury 09/24/2020 01/07/2022 Edema 08/19/2020 11/02/2021 Hypertensive heart and renal disease with (congestive) heart failure 08/19/2020 07/21/2022 Impaired glucose tolerance 08/19/2020 0 11/02/2021 Poisoning by antineoplastic and immunosuppressive drugs 08/19/2020 07/21/2022 Tertiary hyperparathyroidism 08/19/2020 11/02/2021 Type 2 diabetes mellitus wit h peripheral angiopathy 08/19/2020 07/21/2022 End stage renal disease 06/06/2013 06/ Hypertensive renal disease with renal failure 05/23/20 13 01/07/2022 Chronic glomerulonephritis 04/19/2006 0 11/02/2021 Encounters Date Type Department Care Team Description 07/23/2024 Refill [facility] [address] [facility] [address] [place] [address] Rory Gudino MD 06/27/2024 Refill [facility] [address] [facility] [address] [place] [phone] Maryann Alonso Hypertension 05/18/2024 9:15 AM EST Office Visit [facility] [address] [facility] [address] [place] [phone] Rory Gudino MD Kidney transplant status (Primary Dx); History of renal transplant 05/08/2024 Refill [facility] [address] [facility] [address] [place] [phone] Maryann Alonso Type 2 diabetes mellitus with other diabetic kidney complication (HCC); Kidney replaced by transplant from Last 3 Months Immunizations Name Administration Dates Next Due Hep B, Unspecified 02/20/2014,12/19/2013, 014 Influenza Split High Dose Pr eservative Free IM 04/10/2018 Influenza, Quadrivalent, Preservative Free 03/17 Influenza, Unspecified 04/17/2013 Pneumococcal Polysaccharide 08/10/2013, 2 Family History Medical History Relation Comments Cancer Mother Hypertension Mother Relation Status Comments Father Mother Social History Tobacco Use Types Packs/Day Years Used Date Smoking Tobacco: Former Cigarettes Q uit: 07/11/2013 Smokeless Tobacco: Never Tobacco Cessation:Counseling Given: Not Answered Comments:Smoking History Info:Every day Alcohol Use Standard Drinks/Week Comments No [...] 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 Not on file Not on file Last Filed Vital Signs Vital Sign Reading Time Taken Comments Blood Pressure 120/65 05/18/2024 9:20 AM EST Pulse 96 05/18/2024 9:20 AM EST Temperature - - Respiratory Rate - - Oxygen Saturation 97% 05/18/2024 9:20 AM EST Inhaled Oxygen Concentration - - Weight 62.9 kg (138 lb 9.6 oz) 05/18/2024 9:20 A M EST Height 157.5 cm (5' 2 ) 05/09/2023 8:37 AM EDT Body Mass Index 25.35 05/09/2023 8:37 AM EDT Plan of Treatment Upcoming Encounters Date Type Department Care Team (Late st Contact Info) Description 08/15/2024 10:15 AM EST Office Visit [facility] [address] [facility] [address] [place] [phone] Rory Gudino MD [address] [address] 08/18/2024 Orders Only [facility] [address] [facility] [address] [place] [address] Rory Gudino MD [address] [address] Kidney transplant status; History of renal transplant Health Maintenance Due Date Last Done Comments Breast Cancer Screening 1955 Pneumococcal Vaccine: 65+ Years (3 of 3 - PCV) 08/10/2014 08/10/2013, 04/25/2012 Diabetes: Ophthalmology Exam 08/11/2020 Diabetes: Pedal Pulse Checked 08/11/2020 Diabetes: Sensory Foot Exam 08/11/2020 Diabetes: Visual Foot Exam 08/11/2020 Colonoscopy (Post-Transplant Patient) 08/19/2020 Mammogram (Post-Transplant Patient) 08/19/2020 Pelvic Exam (Post-Transplant Patient) 08/19/2020 Diabetes: Hemoglobin A1C 12/23/2022 023, 09/02/2022, 06/10/2021, Additional history exists Influenza Vaccine (#1) 2024 0, 04/10/2018, 04/17/2013 Hepatitis B Vaccine Aged Out 02/20/2014, 12/19/2013, 11/21/2013 No longer eligible based on patient's age to complete this topic Procedures Procedure Name Priority Date/Time Associated Diagnosis Comments PTH, INTACT Routine 08/02/2024 9:18 AM EST URINE CULTURE Routine 08/02/2024 9:18 AM EST MAGNESIUM Routine 08/02/2024 9:18 AM EST TACROLIMUS LEVEL Routine 08/02/2024 9:18 AM EST VITAMIN D 25 HYDROXY Routine 08/02/2024 9:18 AM EST URINE ALBUMIN / CREATININE RATIO Routine 08/02/2024 9:18 AM EST PROTEIN / CREATININE RATIO, URINE Routine 08/02/2024 9:18 AM EST CBC Routine 08/02/2024 9:18 AM EST RENAL FUNCTION PANEL Routine 08/02/2024 9:18 AM EST URINALYSIS WITH MICROSCOPIC Routine 08/02/2024 9:18 AM EST RESULT Routine 08/02/2024 9:18 AM EST MICROSCOPIC EXAMINATION - DO NOT USE Routine 08/02/2024 9:18 AM EST HEMOGLOBIN A1C Routine 09/22/2022 8:32 AM EDT History of renal transplant Type 2 diabetes mellitus with other diabetic kidney complication (HCC) Anemia in chronic kidney disease from Last 3 Months or Most Recently Relevant to Health Maintenance Results * (ABNORMAL) Result (08/02/2024 9:18 AM EST) Result Comment(A ) Carissa Virgen Comment: Beta hemolytic Streptococcus, group B Greater than 100,000 colony forming units per mL Penicillin and ampicillin are drugs of choice for treatment of beta-hemolytic streptococcal infections. Susceptibility testing of penicillins and other beta-lactam agents approved by the FDA for treatment of beta-hemolytic streptococcal infections need not be performed routinely because nonsusceptible isolates are extremely rare in any beta-hemolytic streptococcus and have not been reported for Streptococcus pyogenes (group A). (CLSI) 08/02/2024 9:18 AM EST 08/02/2024 us Rory Gudino MD LAB MICROBIOLOGY - GENERAL OR DERABLES Final Result [facility] [address], [address] [place] [address] * Microscopic Examination (08/02/2024 9:18 AM EST) WBC, Urine 0-5 0 - 5 /hpf [facility] RBC, Urine None seen 0 - 2 /hpf [facility] Squamous Epithelial, Urine 0-10 0 - 10 /hpf [facility] Casts None seen None seen /lpf [facility] Bacteria, Urine None seen None seen/Few [facility] 08/02/2024 9:18 AM EST 08/02/2024 us Rory Gudino MD LAB MICROBIOLOGY - GENERAL OR DERABLES Final Result [facility] [address] [place] [address] * Tacrolimus level (08/02/2024 9:18 AM EST) Tacrolimus Lvl 6.9 2.0 - 20.0 ng/mL [facility] Comment: ?Trough (immediately following ?transplant) ? 15.0 ?Trough (steady state, 2 weeks or ?more after transplant): ?3.0 - 8.0 ?Performed by LC-MS/MS technology. ?Effective August 11, 2024 the reference ? interval for Tacrolimus will be updated to: ? 5.0 - 20.0 ng/mL 08/02/2024 9:18 AM EST 08/02/2024 Narrative [facility] - 08/04/2024 6:06 PM EST Test(s) [id number] ([id number]), Blood was developed and its performance characteristics determined by [facility]. It has not been cleared or approved by the Food and Drug Administration. Rory Gudino MD LAB BLOOD ORDERABLES Final Re [facility] Performing Organization Address City/[facility]/ZIP Co de Phone Number [facility] [address] [place] [address] * Protein, Total, Random Urine w/Creatinine (Protein/Creat Ratio) (08/02/2024 9:18 AM EST) Creatinine, Ur 41.2 Not Estab. mg/dL [facility] Protein, Ur 6.3 Not Estab. mg/dL [facility] Urine Protein/Creatin ine Ratio 153 0 - 200 mg/g creat [facility] 08/02/2024 9:18 AM EST 08/02/2024 Comment: Rory Gudino MD LAB URINE ORDERABLES Final Re [facility] Performing Organization Address [facility] Co de Phone Number [facility] [address] [place] [address] * Urine Albumin / Creatinine Ratio (08/02/2024 9:18 AM EST) Albumin, Urine 4.6 Not Estab. ug/mL [facility] Albumin/Creatin ine Ratio 11 0 - 29 mg/g creat [facility] Comment: ? Normal: ?0 - ??29 ? Moderately increased: 30 - 300 ? Severely increased: ? >300 08/02/2024 9:18 AM EST 08/02/2024 Comment: Rory Gudino MD LAB URINE ORDERABLES Final Re sult Performing Organization Address [facility] de Phone Number [employer] [facility] [place] [address] [place] [address] * Vitamin D 25 Hydroxy (08/02/2024 9:18 AM EST) Vitamin D, 25-OH, Total 57.6 30.0 - 100.0 ng/mL [facility] Comment: Vitamin D deficiency has been defined by the Temple of Medicine and an Endocrine Society practice guideline as a level of serum 25-OH vitamin D less than 20 ng/mL (1,2). The Endocrine Society went on to further define vitamin D insufficiency as a level between 21 and 29 ng/mL (2). 1. IOM (Temple of Medicine). 2010. Dietary reference ?? intakes for calcium and D. [place]: The ?? National Academies Press. 2. David MF, Beverly [place], Judy GAY, et al. ?? Evaluation, treatment, and prevention of vitamin D ?? deficiency: an Endocrine Society clinical practice ?? guideline. JCEM. 2010; 96(7):1911-30. 08/02/2024 9:18 AM EST 08/02/2024 Comment:UC Rory Gudino MD LAB BLOOD ORDERABLES Final Re sult Performing Organization Address [facility] de Phone Number [facility] [address] [place] [address] * (ABNORMAL) Urinalysis with microscopic (08/02/2024 9:18 AM EST) Specific [place], Urine 1.019 1.005 - 1.030 [facility] [phone] pH Urine 6.5 5.0 - 7.5 [facility] [phone] Color, Urine Yellow Yellow [facility] Appearance Urine Clear Clear [facility] [place] WBC Esterase Urine Trace(A) Negative [facility] [phone] Protein, Ur Negative Negative/Tra ce [facility] Glucose, Ur 3+(A) Negative [facility] [phone] Ketones, Urine Negative Negative [facility] [place] Blood Urine Negative Negative [facility] Bilirubin Urine Negative Negative [facility] [place] Urobilinogen Urine 0.2 0.2 - 1.0 mg/dL [facility] Nitrite, Urine Negative Negative [facility] [place] Microscopic Examination See below: [facility] Comment:Microscopic was kena cated and was performed. 08/02/2024 9:18 AM EST 08/02/2024 us Rory Gudino MD LAB URINE ORDERABLES Final Re sult [facility] [address] [place] [address] * (ABNORMAL) CBC (08/02/2024 9:18 AM EST) WBC 4.7 3.4 - 10.8 x10E3/uL [facility] RBC 4.47 3.77 - 5.28 x10E6/uL [facility] Hemoglobin 13.4 11.1 - 15.9 g/dL [facility] Hematocrit 39.8 34.0 - 46.6 % [facility] MCV 89 79 - 97 fL [facility] MCH 30.0 26.6 - 33.0 pg [facility] MCHC 33.7 31.5 - 35.7 g/dL [facility] RDW 12.2 11.7 - 15.4 % [facility] Platelets 149(L) 150 - 450 x10E3/uL [facility] 08/02/2024 9:18 AM EST 08/02/2024 Rory Gudino MD LAB BLOOD ORDERABLES Final Re sult Performing Organization Address City/[facility]/ZIP Co de Phone Number [facility] [address] [place] [address] * (ABNORMAL) Urine Culture (08/02/2024 9:18 AM EST) Culture Result, Urine Final report(A) [facility] 08/02/2024 9:18 AM EST 08/02/2024 Comment:UC Rory Gudino MD LAB URINE ORDERABLES Final Re sult [facility] [address], [address] [place] [address] * PTH, Intact (08/02/2024 9:18 AM EST) PTH 61 15 - 65 pg/mL [facility] 08/02/2024 9:18 AM EST 08/02/2024 Comment:UC us Rory Gudino MD LAB BLOOD ORDERABLES Final Re sult [facility] [address] [place] [address] * Magnesium (08/02/2024 9:18 AM EST) Magnesium 1.9 1.6 - 2.3 mg/dL [facility] 08/02/2024 9:18 AM EST 08/02/2024 Comment: Rory Gudino MD LAB BLOOD ORDERABLES Final Re sult Performing Organization Address City/[facility] Co de Phone Number [facility] [address] [place] [address] * (ABNORMAL) Renal Function Panel (08/02/2024 9:18 AM EST) Glucose 143(H) 70 - 99 mg/dL [facility] BUN 21 8 - 27 mg/dL [facility] Creatinine 1.05(H) 0.57 - 1.00 mg/dL [facility] eGFR CKD-EPI CR 2020 58(L) >59 mL/min/1.7 3 [facility] BUN/Creatinine Ratio 20 12 - 28 [facility] Sodium 142 134 - 144 mmol/L [facility] Potassium 4.6 3.5 - 5.2 mmol/L [facility] Chloride 108(H) 96 - 106 mmol/L [facility] Bicarbonate (CO2) 19(L) 20 - 29 mmol/L [facility] Calcium 10.5(H) 8.7 - 10.3 mg/dL [facility] Albumin 4.7 3.9 - 4.9 g/dL [facility] Phosphorus 2.8(L) 3.0 - 4.3 mg/dL [facility] 08/02/2024 9:18 AM EST 08/02/2024 Comment: Rory Gudino MD LAB BLOOD ORDERABLES Final Re sult Performing Organization Address City/[facility]/ZIP Co de Phone Number [facility] [place] [address] [place] [address] * (ABNORMAL) Hemoglobin A1c (09/22/2022 8:32 AM EDT) Hemoglobin A1C 8.0(H) (4.0-5.6) % [facility] Comment: MONITORING: In known diabetic patients, hemoglobin A1c targets should be discussed with health care provider. DIAGNOSTIC USE: ??The [place] Diabetes Association (ADA) and the World Health Organization (WHO) recommend the use of HbA1c to diagnose diabetes using a threshold of 6.5%. Patients who have an HbA1c between 5.7% and 6.4% are considered at increased risk for developing diabetes in the future. CAUTION: Falsely low HbA1c results may be observed in patients with hemolytic anemia, homozygous forms of abnormal hemoglobin (e.g. SS, CC, SC), , recent blood loss or hemoglobin F greater than 7%. Fructosamine may be used as an alternate test in these cases. REFERENCE: ADA: Standards of Medical Care in Diabetes 2020, The Journal of Clinical and Applied Research and Education Volume 43, Supplement 1 Testing performed or reported by [facility], a Service of [facility], [address] [place] [address] Saad Saucedo MD, Press Leader [facility]# [id number] Blood (Blood, Venous) 09/22/2022 8:32 AM EDT 09/22/2022 8:35 AM EDT Rina Evans MD LAB BLOOD ORDERABLES Final Resu lt [facility] from Last 3 Months or Most Recently Relevant to Health Maintenance Insurance * Guarantor: Janell Salas Account Type Relation to Patient Date of Phone Billing Address Personal/Family Self [address] [place] [address] [facility] * Guarantor: Janell Salas Account Type Relation to Patient Date of Phone Billing Address Personal/Family Self [address] [place] [address] Care Teams Consulting Property Manager Relationship Specialty Start Date End Date Armando Nobles MD [facility] [address] [place] [address] VALERIY IGNACIO [address] [place] [address] PCP - General Internal Medicine 11/19/21
--- OUTSIDE RECORDS SUMMARY | 2024-08-07 09:02 | XMS_ITS | Encounter Summary ---
Author Organization [facility] Address [address] [facility] [address] [place] [address] Phone Care Team Providers Care Bag Machine Tender Name Role Phone Armando Nobles MD Primary Care Provider + Reason for Visit * Reason Comments Med Refill Encounter Details Date Type Department Care Team (Late Contact Info) Description 12/18/2022 Refill [facility] [address] [facility] [address] [place] [address] Michael Cadet MD Type 2 diabetes mellitus with other diabetic kidney complication (HCC) Social History Tobacco Use Types Packs/Day Years [...] 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 [address] [facility] [address] [place] [phone] Rory Gudino MD [address] [address] 08/18/2024 Orders Only [facility] [address] [address] Rory Gudino MD [address] [address] Kidney transplant status; History of renal transplant documented as of this encounter Visit Diagnoses Diagnosis Type 2 diabetes mellitus with other diabetic kidney complication (HCC) Kidney transplant status History of renal transplant documented in this encounter Care Teams Bag Machine Tender Relationship Specialty Start Date End Date Armando Nobles MD [address] [facility] [address] [place] [address] PCP - General Internal Medicine 11/19/21 documented as of this encounter
--- OUTSIDE RECORDS SUMMARY | 2024-08-07 09:02 | XMS_ITS | Encounter Summary ---
Author Organization [facility] Address [address] [facility] [address] [place] [address] Phone Care Team Providers Care Planning Assistant Name Role Phone Armando Nobles MD Primary Care Provider + Reason for Visit * Reason Comments Med Refill Encounter Details Date Type Department Care Team ([facility] Contact Info) Description 10/24/2023 Ref[facility] [address] [facility] [address] [place] [address] Ander Rivera MD [address] [place] [phone] Social History Tobacco Use Types Packs/Day Years [...] 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 [address] [facility] [address] [place] [address] Rory Gudino MD [address] [address] 08/18/2024 Orders Only [facility] [address] [address] Rory Gudino MD [address] [address] Kidney transplant status; History of renal transplant documented as of this encounter Visit Diagnoses Not on filedocumented in this encounter Care Teams Planning Assistant Relationship Specialty Start Date End Date Armando Nobles MD [address] [facility] [address] [place] [address] PCP - General Internal Medicine 11/19/21 documented as of this encounter
--- OUTSIDE RECORDS SUMMARY | 2024-08-07 09:02 | XMS_ITS | Encounter Summary ---
Author Organization [facility] Address [address] [facility] [address] [place] [address] Phone Care Team Providers Care Stock Letterer Name Role Phone Armando Nobles MD Primary Care Provider + Reason for Visit * Reason Comments Med Refill Encounter Details Date Type Department Care Team (Late Contact Info) Description 07/23/2024 Refill [facility] [address] [facility] [address] [place] [phone] Rory Gudino MD [address] [facility] [address] [place] [phone] Social History Tobacco Use Types Packs/Day Years [...] 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 [address] [address] Rory Gudino MD [address] [address] 08/18/2024 Orders Only [facility] [address] [phone] Rory Gudino MD [address] [phone] Kidney transplant status; History of renal transplant documented as of this encounter Visit Diagnoses Not on filedocumented in this encounter Care Teams Stock Letterer Relationship Specialty Start Date End Date Armando Nobles MD [address] [address] PCP - General Internal Medicine 11/19/21 documented as of this encounter
== END 2024-08-07 08:40 | disposition home or self-care (01) ==
LOC: HO.MAMMO 08:39
PROVIDERS: PCP Internal Medicine; Visit Provider Internal Medicine
DX: N64.89 Other specified disorders of breast (principal)
CPT/HCPCS: 77061; 77065

== ENCOUNTER → 2024-08-07 08:45 | Outpatient (BNV) | payer BC, SELFPAY | PROVIDERS: PCP Internal Medicine; Visit Provider Internal Medicine | DX: R92.8 Other abnormal and inconclusive findings on diagnostic imaging of breast (principal) | CPT/HCPCS: 77061; 77065 ==

== ENCOUNTER → 2024-08-16 15:34 | Outpatient (BNVA) | payer BC, SELFPAY | PROVIDERS: PCP Internal Medicine; Visit Provider Physician Assistant Medical | DX: E11.65 Type 2 diabetes mellitus with hyperglycemia (principal); E11.22 Type 2 diabetes mellitus with diabetic chronic kidney disease; N18.4 Chronic kidney disease, stage 4 (severe); E78.5 Hyperlipidemia, unspecified; K64.9 Unspecified hemorrhoids; M16.12 Unilateral primary osteoarthritis, left hip; D05.02 Lobular carcinoma in situ of left breast; K57.30 Diverticulosis of large intestine without perforation or abscess without bleeding; Z79.4 Long term (current) use of insulin; Z79.899 Other long term (current) drug therapy; Z86.0101 Personal history of adenomatous and serrated colon polyps | CPT/HCPCS: 83036; 96127 ==

== ENCOUNTER 2024-09-20 09:48 | Outpatient (REF) | payer BC, SELFPAY ==
--- NOTE | ~2024-09-20 | MM_ITS ---
EXAMINATION: DXA BONE DENSITY AXIAL HISTORY: Estrogen deficiency TECHNIQUE: [employer] Dual energy absorptiometry (DEXA) of the lumbar spine, total left hip, and femoral neck was performed. COMPARISON: Comparison is made with the prior examination dated 08/30/2018. FINDINGS: The bone mineral density of the lumbar spine is 1.073 with a T-score of -0.8, and a Z-score of 0.9. This represents a BMD change of -3.9% compared to the prior exam. This is statistically significant. The bone mineral density of the left total hip is 0.860 with a T-score of -1.2, and a Z-score of 0.3. This represents a BMD change of -6.4% compared to the prior exam. This is statistically significant. The bone mineral density of the left femoral neck is 0.778 with a T-score of -1.9, and a Z-score of -0.2. This represents a BMD change of -4.7% compared to the prior exam. FRACTURE RISK: The FRAX index suggests a ten year probability of major osteoporotic fracture of 6.2%, and of hip fracture 1.0%. MM/XR DEXA axial skeleton IMPRESSION: Based on bone mineral density, and according to World Health Organization (WHO) criteria, the diagnosis is consistent with osteopenia. All bone density values are in grams per centimeter squared (g/cm2). Statistically, 68% of repeat scans fall within 1 SD (+/- 0.010 g/cm2 for AP spine L1-L4) and 1 SD (+/- 0.012 g/cm2 for femur total) FRAX is a trademark of the [employer]'s [employer] for Metabolic Bone Disease, a World Health Organization (WHO) Collaborating Center. Electronically signed by: Fox Tanner MD 09/20/2024 11:29 AM EDT
--- OUTSIDE RECORDS SUMMARY | 2024-09-20 11:54 | XMS_ITS | Clinical Summary ---
Author Organization [facility] Address [address] [place] [address] Care Team Providers Care Tie Maker Name Role Phone Armando Nobles MD Primary [...] age to complete this topic Care Teams Tie Maker Relationship Specialty Start Date End Date Armando Nobles MD PCP - General Internal Medicine 12/14/22
--- OUTSIDE RECORDS SUMMARY | 2024-09-20 11:54 | XMS_ITS | Encounter Summary ---
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 [address] [place] [phone] Rory Gudino MD [address] [place] [address] documented as of this encounter Visit Diagnoses Diagnosis Type 2 diabetes mellitus with other diabetic kidney complication (HCC) documented in this encounter Care Teams Etcher Photoengraving Relationship Specialty Start Date End Date Armando Nobles MD [address] [place] [address] PCP - General Internal Medicine 11/19/21 documented as of this encounter
--- OUTSIDE RECORDS SUMMARY | 2024-09-20 11:54 | XMS_ITS | Encounter Summary ---
Author Organization [facility] Address [address] [facility] [address] [place] [address] Phone Care Team Providers Care Gravel Truck Driver Name Role Phone Armando Nobles MD Primary Care Provider + Reason for Visit * Reason Comments Med Refill Encounter Details Date Type Department Care Team ([facility] Contact Info) Description 08/20/2024 Refill [facility] [address] 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 [address] [phone] Rory Gudino MD [address] [address] documented as of this encounter Visit Diagnoses Not on filedocumented in this encounter Care Teams Gravel Truck Driver Relationship Specialty Start Date End Date Armando Nobles MD [address] [address] PCP - General Internal Medicine 11/19/21 documented as of this encounter
--- OUTSIDE RECORDS SUMMARY | 2024-09-20 11:54 | XMS_ITS | Encounter Summary ---
Author Organization [facility] Address [address] [facility] [address] [place] [address] Phone Care Team Providers Care Accounts Clerk Name Role Phone Armando Nobles MD Primary Care Provider + Reason for Visit * Reason Comments Med Refill Encounter Details Date Type Department Care Team ([facility] Contact Info) Description 10/24/2023 Refill [facility] [address] [facility] [address] [place] [address] Ander Rivera MD [address] [place] [address], [facility] [address] [place] [address] Social History Tobacco Use Types Packs/Day Years [...] 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 [address] [facility] [address] [place] [phone] Rory Gudino MD [address] [facility] [address] [place] [address] documented as of this encounter Visit Diagnoses Not on filedocumented in this encounter Care Teams Accounts Clerk Relationship Specialty Start Date End Date Armando Nobles MD [address], [facility] [address] [place] [address] PCP - General Internal Medicine 11/19/21 documented as of this encounter
--- OUTSIDE RECORDS SUMMARY | 2024-09-20 11:54 | XMS_ITS | Encounter Summary ---
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 [address] [facility] [address] [place] [phone] Rory Gudino MD [address] [facility] [address] [place] [address] documented as of this encounter Visit Diagnoses Diagnosis Hypertension- Primary documented in this encounter Care Teams Ux Interaction Designer Relationship Specialty Start Date End Date Armando Nobles MD [address] [place] [address] PCP - General Internal Medicine 11/19/21 documented as of this encounter
--- OUTSIDE RECORDS SUMMARY | 2024-09-20 11:54 | XMS_ITS | Encounter Summary ---
Author Organization [facility] Address [address] [address] Phone Care Team Providers Care Alodize Machine Operator Name Role Phone Armando Nobles MD Primary Care Provider + Reason for Visit * Reason Comments Med Refill Encounter Details Date Type Department Care Team (Late Contact Info) Description 09/14/2024 Refill 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 file documented as of this encounter Plan of Treatment Upcoming Encounters Date Type Department Care Team (Late Contact Info) Description 02/13/2025 1:15 PM EDT Office Visit [facility] [place] [address] [phone] Rory Gudino MD [address] [address] documented as of this encounter Visit Diagnoses Not on filedocumented in this encounter Care Teams Alodize Machine Operator Relationship Specialty Start Date End Date Armando Nobles MD [address] , [address] [address] PCP - General Internal Medicine 11/19/21 documented as of this encounter
--- OUTSIDE RECORDS SUMMARY | 2024-09-20 11:54 | XMS_ITS | Encounter Summary ---
Author Organization [facility] Address [address] [address] Phone Care Team Providers Care Stockroom Supervisor Name Role Phone Armando Nobles MD Primary Care Provider + Encounter Details Date Type Department Care Team ([facility] Contact Info) Description 08/18/2024 Orders Only [facility] [address] [address] Rory Gudino MD [address] [phone] Kidney transplant status; History of renal transplant Social History Tobacco Use Types Packs/Day Years [...] 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 documented as of this encounter Plan of Treatment Upcoming Encounters Date Type Department Care Team (Late Contact Info) Description 02/13/2025 1:15 PM EDT Office Visit [facility] [address] [phone] Rory Gudino MD [address] [address] documented as of this encounter Procedures Procedure Name Priority Date/Time Associated Diagnosis Comments RESULT Routine 08/02/2024 9:18 AM EST MICROSCOPIC EXAMINATION - DO NOT USE Routine 08/02/2024 9:18 AM EST TACROLIMUS LEVEL Routine 08/02/2024 9:18 AM EST PROTEIN / CREATININE RATIO, URINE Routine 08/02/2024 9:18 AM EST URINE ALBUMIN / CREATININE RATIO Routine 08/02/2024 9:18 AM EST VITAMIN D 25 HYDROXY Routine 08/02/2024 9:18 AM EST URINALYSIS WITH MICROSCOPIC Routine 08/02/2024 9:18 AM EST CBC Routine 08/02/2024 9:18 AM EST URINE CULTURE Routine 08/02/2024 9:18 AM EST PTH, INTACT Routine 08/02/2024 9:18 AM EST MAGNESIUM Routine 08/02/2024 9:18 AM EST RENAL FUNCTION PANEL Routine 08/02/2024 9:18 AM EST documented in this encounter Results * (ABNORMAL) Result (08/02/2024 9:18 AM EST) Result Comment(A ) [facility] Comment: Beta hemolytic Streptococcus, group B Greater [...] A). (CLSI) 08/02/2024 9:18 AM EST 08/02/2024 Rory Gudino MD LAB MICROBIOLOGY - GENERAL OR DERABLES Final Result [facility] [address], [address] [place] [address] * Microscopic Examination (08/02/2024 9:18 AM EST) WBC, Urine 0-5 0 - 5 /hpf [facility] RBC, Urine None seen 0 - 2 /hpf [facility] Squamous Epithelial, Urine 0-10 0 - 10 /hpf [facility] Casts None seen None seen /lpf [facility] Bacteria, Urine None seen None seen/Few [facility] 08/02/2024 9:18 AM EST 08/02/2024 Rory Gudino MD LAB MICROBIOLOGY - GENERAL OR DERABLES Final Result [facility] [address] [place] [address] * PTH, Intact (08/02/2024 9:18 AM EST) PTH 61 15 - 65 pg/mL [facility] 08/02/2024 9:18 AM EST 08/02/2024 Comment: Rory Gudino MD LAB BLOOD ORDERABLES Final Re sult Performing Organization Address [facility]/ZIP Co de Phone Number [facility] [address] [place] [address] * (ABNORMAL) Urine Culture (08/02/2024 9:18 AM EST) Culture Result, Urine Final report(A) [facility] [place] 08/02/2024 9:18 AM EST 08/02/2024 Comment: Rory Gudino MD LAB URINE ORDERABLES Final Re sult Performing Organization Address [facility] de Phone Number [facility] [address], [address] [place] [address] * Magnesium (08/02/2024 9:18 AM EST) Magnesium 1.9 1.6 - 2.3 mg/dL [facility] 08/02/2024 9:18 AM EST 08/02/2024 Comment: Rory Gudino MD LAB BLOOD ORDERABLES Final Re sult Performing Organization Address [facility] de Phone Number [facility] [address] [place] [address] * Tacrolimus level (08/02/2024 9:18 AM EST) Tacrolimus Lvl 6.9 2.0 - 20.0 ng/mL [facility] Comment: ?Trough (immediately following ?transplant) ? 15.0 ?Trough (steady state, 2 weeks or ?more after transplant): ?3.0 - 8.0 ?Performed by LC-MS/MS technology. ?Effective August 11, 2024 the reference ? interval for Tacrolimus will be updated to: ? 5.0 - 20.0 ng/mL 08/02/2024 9:18 AM EST 08/02/2024 Narrative [facility] - 08/04/2024 6:06 PM EST Test(s) [id number] (FK506), Blood was developed and its performance characteristics determined by [facility]. It has not been cleared or approved by the Food and Drug Administration. us Rory Gudino MD LAB BLOOD ORDERABLES Final Re sult [facility] [address] [place] [address] * Vitamin D 25 Hydroxy (08/02/2024 9:18 AM EST) Vitamin D, 25-OH, Total 57.6 30.0 - 100.0 ng/mL [facility] Comment: Vitamin D deficiency has been defined by the [place] of Medicine and an Endocrine Society practice guideline as a level of serum 25-OH vitamin D less than 20 ng/mL (1,2). The Endocrine Society went on to further define vitamin D insufficiency as a level between 21 and 29 ng/mL (2). 1. IOM ([place] of Medicine). 2010. Dietary reference ?? intakes for calcium and D. [place]: The ?? National Academies Press. 2. David MF, Beverly DIAS, Judy GAY, et al. ?? Evaluation, treatment, and prevention of vitamin D ?? deficiency: an Endocrine Society clinical practice ?? guideline. JCEM. 2010; 96(7):1911-30. 08/02/2024 9:18 AM EST 08/02/2024 Comment: Rory Gudino MD LAB BLOOD ORDERABLES Final Re sult Performing Organization Address [facility] Co de Phone Number [facility] [address] [place] [address] * Urine Albumin / Creatinine Ratio (08/02/2024 9:18 AM EST) Albumin, Urine 4.6 Not Estab. ug/mL [facility] Albumin/Creatin ine Ratio 11 0 - 29 mg/g creat [facility] Comment: ? Normal: ?0 - ??29 ? Moderately increased: 30 - 300 ? Severely increased: ? >300 08/02/2024 9:18 AM EST 08/02/2024 Comment: Rory Gudino MD LAB URINE ORDERABLES Final Re sult Performing Organization Address [facility] de Phone Number [facility] [address] [place] [address] * Protein, Total, Random Urine w/Creatinine (Protein/Creat Ratio) (08/02/2024 9:18 AM EST) Creatinine, Ur 41.2 Not Estab. mg/dL [facility] Protein, Ur 6.3 Not Estab. mg/dL [facility] Urine Protein/Creatin ine Ratio 153 0 - 200 mg/g creat [facility] 08/02/2024 9:18 AM EST 08/02/2024 Comment: Rory Gudino MD LAB URINE ORDERABLES Final Re sult Performing Organization Address City/[facility]/ZIP Co de Phone Number [facility] [address] [place] [address] * (ABNORMAL) CBC (08/02/2024 9:18 AM EST) WBC 4.7 3.4 - 10.8 x10E3/uL [facility] RBC 4.47 3.77 - 5.28 x10E6/uL [facility] Hemoglobin 13.4 11.1 - 15.9 g/dL [facility] Hematocrit 39.8 34.0 - 46.6 % [facility] MCV 89 79 - 97 fL [facility] MCH 30.0 26.6 - 33.0 pg [facility] MCHC 33.7 31.5 - 35.7 g/dL [facility] RDW 12.2 11.7 - 15.4 % [facility] Platelets 149(L) 150 - 450 x10E3/uL [facility] 08/02/2024 9:18 AM EST 08/02/2024 Rory Gudino MD LAB BLOOD ORDERABLES Final Re sult [facility] [address] [place] [address] * (ABNORMAL) Renal Function Panel (08/02/2024 9:18 AM EST) Glucose 143(H) 70 - 99 mg/dL [facility] BUN 21 8 - 27 mg/dL [facility] Creatinine 1.05(H) 0.57 - 1.00 mg/dL [facility] eGFR CKD-EPI CR 2020 58(L) >59 mL/min/1.7 3 [facility] BUN/Creatinine Ratio 20 12 - 28 [facility] Sodium 142 134 - 144 mmol/L [facility] Potassium 4.6 3.5 - 5.2 mmol/L [facility] Chloride 108(H) 96 - 106 mmol/L [facility] Bicarbonate (CO2) 19(L) 20 - 29 mmol/L [facility] Calcium 10.5(H) 8.7 - 10.3 mg/dL [facility] Albumin 4.7 3.9 - 4.9 g/dL [facility] Phosphorus 2.8(L) 3.0 - 4.3 mg/dL [facility] 08/02/2024 9:18 AM EST 08/02/2024 Comment:UC us Rory Gudino MD LAB BLOOD ORDERABLES Final Re sult [facility] [address] [place] [address] * (ABNORMAL) Urinalysis with microscopic (08/02/2024 9:18 AM EST) Specific Erin, Urine 1.019 1.005 - 1.030 [facility] [phone] pH Urine 6.5 5.0 - 7.5 [facility] Color, Urine Yellow Yellow [facility] Appearance Urine Clear Clear [facility] [place] WBC Esterase Urine Trace(A) Negative [facility] Protein, Ur Negative Negative/Tra ce [facility] Glucose, Ur 3+(A) Negative [facility] Ketones, Urine Negative Negative [facility] [place] [phone] Blood Urine Negative Negative [facility] Bilirubin Urine Negative Negative [facility] [place] [phone] Urobilinogen Urine 0.2 0.2 - 1.0 mg/dL [facility] Nitrite, Urine Negative Negative [facility] [place] Microscopic Examination See below: [facility] [phone] Comment:Microscopic was kena cated and was performed. 08/02/2024 9:18 AM EST 08/02/2024 us Rory Gudino MD LAB URINE ORDERABLES Final Re sult [facility] [address] [place] [address] documented in this encounter Visit Diagnoses Diagnosis Kidney transplant status History of renal transplant documented in this encounter Care Teams Stockroom Supervisor Relationship Specialty Start Date End Date Armando Nobles MD [address] , [address] [place] [address] PCP - General Internal Medicine 11/19/21 documented as of this encounter
--- OUTSIDE RECORDS SUMMARY | 2024-09-20 11:54 | XMS_ITS | Clinical Summary ---
Author Organization [facility] Address [address] [address] Phone Care Team Providers Care Loss Prevention Representative Name Role Phone Armando Nobles MD Primary [...] TABLET BY MOUTH AT BEDTIME 30 tablet 11 11/04/19 23 Active Additional Information Patient taking differently: 20 mg, 25 mg, Reported on 08/15/2024 metFORMIN (GLUCOPHAGE) 500 MG tablet TAKE ONE TABLET BY MOUTH TWO TIMES A DAY WITH MEALS 60 tablet 04/11/20 23 Active D2000 Ultra Strength 50 MCG (1999) capsuleIndicati ons:Long-term drug therapy TAKE ONE CAPSULE BY MOUTH ONCE DAILY 30 capsule 11 12/15/19 24 Active metoprolol succinate XL (TOPROL XL) 25 MG 24 hr tabletIndicatio ns:Hypertension TAKE 1/2 TABLETS BY MOUTH ONCE DAILY 15 tablet 12/15/19 24 Active sodium bicarbonate 650 MG tablet TAKE 1 TABLET BY MOUTH IN THE MORNING, AT NOON, 1 TABLET IN THE EVENING, AND 1 TABLET BEFORE BEDTIME 360 tablet 01/20/20 24 Active amLODIPine (NORVASC) 10 MG tabletIndicatio ns:Hypertension [...] ONCE DAILY 60 tablet 07/23/19 25 Active Farxiga 10 MG tabletIndicatio ns:Type 2 diabetes mellitus with other diabetic kidney complication (HCC),Kidney replaced by transplant TAKE ONE TABLET BY MOUTH ONCE DAILY 30 tablet 10 08/20/19 25 Active Tacrolimus ER (Envarsus XR) 4 MG tablet sustained-relea se 24 hour Take 4 mg by mouth 1 (one) time each day Along with 2 tabs of 1 mg for a total dose of 6 mg 90 tablet 3 08/21/19 25 025 Active valsartan (DIOVAN) 80 MG tablet TAKE 1 TABLET (80 MG TOTAL) BY MOUTH 1 (ONE) TIME EACH DAY 30 tablet 10 09/15/19 25 026 Active Magnesium 400 MG tabletIndicatio ns:Hypomagnesem ia Take 400 mg by mouth in the morning and 400 mg in the evening. 60 tablet 09/06/19 24 025 valsartan (DIOVAN) 80 MG tablet TAKE 1 TABLET (80 MG TOTAL) BY MOUTH 1 (ONE) TIME EACH DAY 30 tablet 10 07/23/19 25 025 Discontinued Active Problems Problem Noted Date Diagnosed Date Immunosuppression 11/24/2022 Essential (primary) hypertension 11/24/2022 Type 2 diabetes mellitus wit h other diabetic kidney complication 08/12/2021 Kidney transplant status 08/19/2020 History of renal transplant 06/09/2018 Overview (05/19/2022): [facility] induction Atypical ductal hyperplasia of breast 05/25/2018 Overview (05/19/2022): [facility] Anemia in chronic kidney disease 05/23/2013 [...] angiopathy 08/19/2020 07/21/2022 End stage renal disease 06/06/201312/11 Hypertensive renal disease with renal failure 05/23/20 13 01/07/2022 Chronic glomerulonephritis 04/19/2006 0 11/02/2021 Encounters Date Type Department Care Team Description 09/14/2024 Refill [facility] [address] [address] Rory Gudino MD 08/20/2024 Refill [facility] [address] [place] [address] Quinton Grace MD 08/20/2024 Refill [facility] [address] [address] Rory Gudino MD Type 2 diabetes mellitus with other diabetic kidney complication (HCC); Kidney replaced by transplant 08/18/2024 Orders Only [facility] [address] [address] Rory Gudino MD Kidney transplant status; History of renal transplant 08/15/2024 10:15 AM EST Office Visit [facility] [place] [address] [address] Rory Gudino MD Kidney transplant status (Primary Dx); Essential (primary) hypertension 07/23/2024 Refill [facility] [address] [place] [address] Rory Gudino MD 06/27/2024 Refill [facility] [address] [facility] [address] [place] [phone] Maryann Alonso Hypertension from Last 3 Months Immunizations Name Administration [...] Job Start Date Job End Date [employer] Not on file Not on file Not on file Last Filed Vital Signs Vital Sign Reading Time Taken Comments Blood Pressure 120/65 05/18/2024 9:20 AM EST Pulse 94 08/15/2024 10:21 AM EST Temperature - - Respiratory Rate - - Oxygen Saturation 97% 08/15/2024 10:21 AM EST Inhaled Oxygen Concentration - - Weight 62.6 kg (138 lb) 08/15/2024 10:21 AM EST Height 157.5 cm (5' 2 ) 05/09/2023 8:37 AM EDT Body Mass Index 25.24 05/09/2023 8:37 AM EDT Plan of Treatment Upcoming Encounters Date Type Department Care Team (Late st Contact Info) Description 02/13/2025 1:15 PM EDT Office Visit [facility] [address] [phone] Rory Gudino MD [address] [facility] [address] [place] [address] Health Maintenance Due Date Last Done Comments [...] (08/02/2024 9:18 AM EST) Result Comment(A ) [facility] Comment: Beta hemolytic Streptococcus, group B [...] MICROBIOLOGY - GENERAL OR DERABLES Final Result [facility] Param [address], [address] [place] [address] * Microscopic Examination (08/02/2024 9:18 AM EST) WBC, Urine 0-5 0 - 5 /hpf [facility] RBC, Urine None seen 0 - 2 /hpf [facility] Squamous Epithelial, Urine 0-10 0 - 10 /hpf [facility] None seen None seen /lpf [facility] Bacteria, Urine None seen None seen/Few [facility] [place] 08/02/2024 9:18 AM EST 08/02/2024 Rory Gudino MD LAB MICROBIOLOGY - GENERAL OR DERABLES Final Result [facility] [address] [place] [address] * Tacrolimus level (08/02/2024 9:18 AM EST) Tacrolimus Lvl 6.9 2.0 - 20.0 ng/mL [facility] Comment: ?Trough (immediately following ?transplant) ? 15.0 ?Trough (steady state, 2 weeks or ?more after transplant): ?3.0 - 8.0 ?Performed by LC-MS/MS technology. ?Effective August 11, 2024 the reference ? interval for Tacrolimus will be updated to: ? 5.0 - 20.0 ng/mL 08/02/2024 9:18 AM EST 08/02/2024 Narrative [facility] - 08/04/2024 6:06 PM EST Test(s) [id number] ([id number]), Blood was developed and its performance characteristics determined by [facility]. It has not been cleared or approved by the Food and Drug Administration. Rory Gudino MD LAB BLOOD ORDERABLES Final Re sult Performing Organization Address City/[facility]/ZIP Co de Phone Number JENNIFER [address] [place] [address] * Protein, Total, Random Urine w/Creatinine (Protein/Creat Ratio) (08/02/2024 9:18 AM EST) Creatinine, Ur 41.2 Not Estab. mg/dL [facility] Protein, Ur 6.3 Not Estab. mg/dL [facility] Urine Protein/Creatin ine Ratio 153 0 - 200 mg/g creat [facility] 08/02/2024 9:18 AM EST 08/02/2024 Comment:UC Rory Gudino MD LAB URINE ORDERABLES Final Re sult Performing Organization Address City/[facility] Co de Phone Number ALYSSA [facility] [address] [place] [address] * Urine Albumin / Creatinine Ratio (08/02/2024 9:18 AM EST) Albumin, Urine 4.6 Not Estab. ug/mL [facility] Albumin/Creatin ine Ratio 11 0 - 29 mg/g creat [facility] Comment: ? Normal: ?0 - ??29 ? Moderately increased: 30 - 300 ? Severely increased: ? >300 08/02/2024 9:18 AM EST 08/02/2024 Comment: Rory Gudino MD LAB URINE ORDERABLES Final Re sult Performing Organization Address City/[facility] Co de Phone Number [employer] [facility] [place] [address] [place] [address] * Vitamin D 25 Hydroxy (08/02/2024 9:18 AM EST) Vitamin D, 25-OH, Total 57.6 30.0 - 100.0 ng/mL [facility] Comment: Vitamin D deficiency has been defined by the Pierce of Medicine and an Endocrine Society practice guideline as a level of serum 25-OH vitamin D less than 20 ng/mL (1,2). The Endocrine Society went on to further define vitamin D insufficiency as a level between 21 and 29 ng/mL (2). 1. IOM (Pierce of Medicine). 2010. Dietary reference ?? intakes for calcium and D. [place]: The ?? National [employer] Press. 2. David MF, Beverly [place], Judy GAY, et al. ?? Evaluation, treatment, and prevention of vitamin D ?? deficiency: an Endocrine Society clinical practice ?? guideline. JCEM. 2010; 96(7):1911-30. 08/02/2024 9:18 AM EST 08/02/2024 Comment: Rory Gudino MD LAB BLOOD ORDERABLES Final Re sult Performing Organization Address City/[facility] Co de Phone Number JENNIFER [address] [place] [address] * (ABNORMAL) Urinalysis with microscopic (08/02/2024 9:18 AM EST) Specific [place], Urine 1.019 1.005 - 1.030 [facility] [phone] pH Urine 6.5 5.0 - 7.5 [facility] [phone] Color, Urine Yellow Yellow [facility] Appearance Urine Clear Clear [facility] [place] WBC Esterase Urine Trace(A) Negative [facility] Protein, Ur Negative Negative/Tra ce [facility] Glucose, Ur 3+(A) Negative [facility] Ketones, Urine Negative Negative [facility] [place] Blood Urine Negative Negative [facility] Bilirubin Urine Negative Negative [facility] [place] Urobilinogen Urine 0.2 0.2 - 1.0 mg/dL [facility] Nitrite, Urine Negative Negative [facility] [place] Microscopic Examination See below: [facility] Comment:Microscopic was kena cated and was performed. 08/02/2024 9:18 AM EST 08/02/2024 us Rory Gudino MD LAB URINE ORDERABLES Final Re sult [facility] [address] [place] [address] * (ABNORMAL) CBC (08/02/2024 9:18 AM EST) WBC 4.7 3.4 - 10.8 x10E3/uL [facility] RBC 4.47 3.77 - 5.28 x10E6/uL [facility] Hemoglobin 13.4 11.1 - 15.9 g/dL [facility] Hematocrit 39.8 34.0 - 46.6 % [facility] MCV 89 79 - 97 fL [facility] MCH 30.0 26.6 - 33.0 pg [facility] MCHC 33.7 31.5 - 35.7 g/dL [facility] RDW 12.2 11.7 - 15.4 % [facility] Platelets 149(L) 150 - 450 x10E3/uL [facility] 08/02/2024 9:18 AM EST 08/02/2024 Rory Gudino MD LAB BLOOD ORDERABLES Final Re sult [facility] [address] [place] [address] * (ABNORMAL) Urine Culture (08/02/2024 9:18 AM EST) Culture Result, Urine Final report(A) [facility] 08/02/2024 9:18 AM EST 08/02/2024 Comment:UC Rory Gudino MD LAB URINE ORDERABLES Final Re sult [facility] [address], [address] [place] [address] * PTH, Intact (08/02/2024 9:18 AM EST) PTH 61 15 - 65 pg/mL [facility] 08/02/2024 9:18 AM EST 08/02/2024 Comment:UC Rory Gudino MD LAB BLOOD ORDERABLES Final Re sult [facility] [address] [place] [address] * Magnesium (08/02/2024 9:18 AM EST) Magnesium 1.9 1.6 - 2.3 mg/dL [facility] 08/02/2024 9:18 AM EST 08/02/2024 Comment:UC us Rory Gudino MD LAB BLOOD ORDERABLES Final Re sult [facility] [address] [place] [address] * (ABNORMAL) Renal Function Panel (08/02/2024 9:18 AM EST) Glucose 143(H) 70 - 99 mg/dL [facility] BUN 21 8 - 27 mg/dL [facility] Creatinine 1.05(H) 0.57 - 1.00 mg/dL [facility] eGFR CKD-EPI CR 2020 58(L) >59 mL/min/1.7 3 [facility] BUN/Creatinine Ratio 20 12 - 28 [facility] Sodium 142 134 - 144 mmol/L [facility] Potassium 4.6 3.5 - 5.2 mmol/L [facility] Chloride 108(H) 96 - 106 mmol/L [facility] Bicarbonate (CO2) 19(L) 20 - 29 mmol/L [facility] Calcium 10.5(H) 8.7 - 10.3 mg/dL [facility] Albumin 4.7 3.9 - 4.9 g/dL [facility] Phosphorus 2.8(L) 3.0 - 4.3 mg/dL [facility] 08/02/2024 9:18 AM EST 08/02/2024 Comment: Rory Gudino MD LAB BLOOD ORDERABLES Final Re sult [facility] [address] [place] [address] * (ABNORMAL) Hemoglobin A1c (09/22/2022 8:32 AM EDT) Hemoglobin A1C 8.0(H) (4.0-5.6) % [facility] Comment: MONITORING: In known diabetic patients, hemoglobin A1c targets should be discussed with health care provider. DIAGNOSTIC USE: ??The [place] Diabetes Association (ADA) and the World Health [...] Supplement 1 Testing performed or reported by [facility], a Service of [facility], [address] [place] [address] Saad Saucedo MD, Electrician Technician [facility]# [id number] Blood (Blood, Venous) 09/22/2022 8:32 AM EDT 09/22/2022 8:35 AM EDT us Rina Evans MD LAB BLOOD ORDERABLES Final Resu lt [facility] from Last 3 Months or Most Recently Relevant to Health Maintenance [place] [address] [place] [address] [facility] Care Teams Loss Prevention Representative Relationship Specialty Start Date End Date Armando Nobles MD [address] [place] [address] PCP - General Internal Medicine 11/19/21
--- OUTSIDE RECORDS SUMMARY | 2024-09-20 11:54 | XMS_ITS | Patient Health Record ---
Author Organization [facility] Address [address] [place] [address] Care Team Providers Care Chemical Lab Technician Name Role Phone APURVA WISEMAN Primary Care Provider Parvez Mercado Jr Unavailable [phone] Reason For Referral No Information Medications Medication SIG (Take, Route, Frequency, Duration) Notes [...] 1 tablet Orally Once a day Active Immunizations Vaccine Route Administration Date Status Comme nts Flu vaccine no Preserv 3 and > Unknown 04/20/2016 Admin istered Problems Problem Type SNOMED Code ICD Code Onset Dates Problem Status W/U Status Risk Notes Problem 542608320 Colon cancer screening (Z12.11) Active confirmed Problem 163144537 Diverticulosis o f large intestine without hemorrhage (K57.30) Active confirmed Plan Of Treatment Future Test Test Name Order Date COLONOSCOPY 05/26/2016 Insurance Providers Payer Name Payer Address Payer Phone Subscriber Number Group Number Insured Name Patient Relationship to Insured Coverage Start Date Coverage End Date MEDICARE OF [place] [address] [place] [address] [phone] [id number] ROLANDA LUCIO Self - patient is the insured [employer] [address] [place] [phone] [id number] ROLANDA LUCIO Self - patient is the insured Medical (General) History Medical History History ICD Code colonoscopy 08-29-2009, tubular adenoma x 2, followup 3 years chronic kidney disease, peritoneal dialy sis elevated blood pressure elevated cholesterol hyperparathyroidism migraine headaches Denies NH,DM,CVA,Lung disease
== END 2024-09-20 09:49 | disposition home or self-care (01) ==
LOC: HO.MAMMO 09:48
PROVIDERS: PCP Internal Medicine; Visit Provider Physician Assistant Medical
DX: M81.0 Age-related osteoporosis without current pathological fracture (principal)
CPT/HCPCS: 77080

== ENCOUNTER → 2024-09-20 10:00 | Outpatient (BNV) | payer BC, SELFPAY | PROVIDERS: PCP Internal Medicine; Visit Provider Radiology Diagnostic Radiology | DX: E28.39 Other primary ovarian failure (principal) | CPT/HCPCS: 77080 ==

== ENCOUNTER 2025-02-12 12:37 | Outpatient (REF) | payer BC, SELFPAY ==
[2025-02-12 12:57] LABS: MANUAL DIFF FLAG NO
--- OUTSIDE RECORDS SUMMARY | 2025-02-12 13:11 | XMS_ITS | Clinical Summary ---
Author Organization [facility] Address [address] [address] Phone Care Team Providers Care Shipping Point Inspector Name Role Phone Armando Nobles MD Primary Care Provider + Allergies No known active allergies Medications FREESTYLE LITE test strip 1 Active Lancets (freestyle) lancets 1 Active calcitriol (ROCALTROL) 0.5 MCG capsule Take 0.5 mcg by mouth 1 (one) time each day Active Lantus SoloStar 100 UNIT/ML injection if needed 2 Active metFORMIN (GLUCOPHAGE) 500 MG tablet TAKE ONE TABLET BY MOUTH TWO TIMES A DAY WITH MEALS 60 tablet 11 3 Active sodium bicarbonate 650 MG tablet TAKE 1 TABLET BY MOUTH IN THE MORNING, AT NOON, 1 TABLET IN THE EVENING, AND 1 TABLET BEFORE BEDTIME 360 tablet 4 Active amLODIPine (NORVASC) 10 MG tabletIndications :Hypertension Take 1 tablet (10 mg total) by mouth 1 (one) time each day 90 tablet 3 4 Active mycophenolate (MYFORTIC) 180 MG EC tablet TAKE 3 TABLET BY MOUTH EVERY MORNING AND EVERY EVENING 180 tablet 10 5 Active Envarsus XR 1 MG tablet sustained-release 24 hour TAKE 2 TABLETS BY MOUTH ONCE DAILY 60 tablet 10 5 Active Farxiga 10 MG tabletIndications :Type 2 diabetes mellitus with other diabetic kidney complication (HCC),Kidney replaced by transplant TAKE ONE TABLET BY MOUTH ONCE DAILY 30 tablet 10 5 Active valsartan (DIOVAN) 80 MG tablet TAKE 1 TABLET (80 MG TOTAL) BY MOUTH 1 (ONE) TIME EACH DAY 30 tablet 10 5 09/15/19 26 Active simvastatin (ZOCOR) 20 MG tablet Take 1 tablet (20 mg total) by mouth at bed time 30 tablet 11 5 Active cholecalciferol (VITAMIN D-3) 50 MCG (1999 UT) capsuleIndication s:Long-term drug therapy TAKE ONE CAPSULE BY MOUTH ONCE DAILY 30 capsule 10 5 Active metoprolol succinate XL (TOPROL XL) 25 MG 24 hr tabletIndications :Hypertension TAKE ONE-HALF TABLET BY MOUTH ONCE DAILY 15 tablet 5 Active metFORMIN XR (GLUCOPHAGE-XR) 500 MG 24 hr tablet TAKE TWO TABLETS BY MOUTH TWO TIMES A DAY 360 tablet 4 5 Active magnesium oxide (MAG-OX) 400 MG tablet TAKE 1 TABLET (400 MG TOTAL) BY MOUTH IN THE MORNING AND 1 TABLET (400 MG TOTAL) IN THE EVENING. 60 tablet 2 5 02/01/20 25 Active Problems Problem Noted Date Diagnosed Date Immunosuppression 11/24/2022 Essential (primary) hypertension 11/24/2022 Type 2 diabetes mellitus wit h other diabetic kidney complication 08/12/2021 Kidney transplant status 08/19/2020 History of renal transplant 06/09/2018 Overview (05/19/2022): [facility] induction Atypical ductal hyperplasia of breast 05/25/2018 Overview (05/19/2022): [facility] Anemia in chronic kidney disease 05/23/2013 [...] Encounters Date Type Department Care Team Description 01/12/2025 Orders Only [facility] [address] [place] [phone] Rory Gudino MD Kidney transplant status; Essential (primary) hypertension 12/25/2024 Refill [facility] 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 [address] [address] Rory Gudino MD [address] [address] Health Maintenance Due Date Last Done Comments Breast Cancer Screening 1955 Pneumococcal Vaccine: 50+ Years (3 of 3 - PCV) 08/10/2014 08/10/2013, 04/25/2012 Diabetes: Ophthalmology Exam 08/11/2020 Diabetes: Pedal Pulse Checked 08/11/2020 Diabetes: Sensory Foot Exam 08/11/2020 Diabetes: Visual Foot Exam 08/11/2020 Colonoscopy (Post-Transplant Patient) 08/19/2020 Mammogram (Post-Transplant Patient) 08/19/2020 Pelvic Exam (Post-Transplant Patient) 08/19/2020 Diabetes: Hemoglobin A1C 12/23/2022 023, 09/02/2022, 06/10/2021, Additional history exists Influenza Vaccine (#1) 2025 0, 04/10/2018, 04/17/2013 Pneumococcal Vaccine: Peds (0 to 5 Years) and At-Risk Patients (6 to 49 Years) Discontinued 08/10/2013, 04/25/2012 Hepatitis B Vaccine Aged Out 02/20/2014, 12/19/2013, 11/21/2013 No longer eligible based on patient's age to complete this topic Procedures Procedure Name Priority Date/Time Associated Diagnosis Comments TACROLIMUS LEVEL Routine 02/08/2025 12:5 3 PM EDT Kidney transplant status Essential (primary) hypertension PROTEIN / CREATININE RATIO, URINE Routine 02/08/2025 12:53 PM EDT Kidney transplant status Essential (primary) hypertension URINE ALBUMIN / CREATININE RATIO Routine 02/08/2025 12:53 PM EDT Kidney transplant status Essential (primary) hypertension URINALYSIS WITH MICROSCOPIC Routine 02/08/2025 12:53 PM EDT Kidney transplant status Essential (primary) hypertension RENAL FUNCTION PANEL Routine 02/08/2025 12:53 PM EDT Kidney transplant status Essential (primary) hypertension MICROSCOPIC EXAMINATION - DO NOT USE Routine 02/08/2025 12:53 PM EDT HEMOGLOBIN A1C Routine 09/22/2022 8:32 AM EDT History of renal transplant Type 2 diabetes mellitus with other diabetic kidney complication (HCC) Anemia in chronic kidney disease from Last 3 Months or Most Recently Relevant to Health Maintenance Results * Microscopic Examination (02/08/2025 12:53 PM EDT) WBC, Urine 0-5 0 - 5 /hpf [facility] RBC, Urine None seen 0 - 2 /hpf [facility] Squamous Epithelial, Urine None seen 0 - 10 /hpf [facility] Casts None seen None seen /lpf [facility] Bacteria, Urine None seen None seen/Few [facility] 02/08/2025 12:5 3 PM EDT 02/08/2025 us Rory Gudino MD LAB MICROBIOLOGY - GENERAL OR DERABLES Final Result [facility] [address] [place] [address] * (ABNORMAL) Tacrolimus level (02/08/2025 12:53 PM EDT) Tacrolimus Lvl 3.6(L) 5.0 - 20.0 ng/mL [facility] Comment: Target steady state trough concentration for Tacrolimus varies based on type of organ transplant immunosuppressive protocol and other patient specific factors. Tacrolimus trough concentrations should be interpreted in conjunction with clinical assessments of rejection and tolerability. Values obtained with different assay methods cannot be used interchangeably due to differences in assay methods and cross-reactivty with metabolites, nor should correction factors be applied. Therefore, consistent use of one assay for individual patients is recommended. Detection Limit = 0.5 ng/mL Performed by LC-MS/MS technology. Blood specimen (specimen) Venous blood / Unknown 02/08/2025 12:53 PM EDT 02/08/2025 Narrative [facility] - 02/12/2025 7:05 AM EDT Test(s) [id number] (FK506), Blood was developed and its performance characteristics determined by [facility]. It has not been cleared or approved by the Food and Drug Administration. us Rory Gudino MD LAB BLOOD ORDERABLES Final Re sult [facility] [place] [address] * Protein, Total, Random Urine w/Creatinine (Protein/Creat Ratio) (02/08/2025 12:53 PM EDT) Creatinine, Ur 70.5 Not Estab. mg/dL [facility] Protein, Ur 5.8 Not Estab. mg/dL [facility] Urine Protein/Creatin ine Ratio 82 0 - 200 mg/g creat [facility] Urine specimen (specimen) Urine specimen obtained by clean catch procedure / Unknown 02/08/2025 12:53 PM EDT 02/08/2025 Rory Gudino MD LAB URINE ORDERABLES Final Re sult Performing Organization Address City/[facility]/ZIP Co de Phone Number [facility] [address] [place] [address] * Urine Albumin / Creatinine Ratio (02/08/2025 12:53 PM EDT) Albumin, Urine 5.7 Not Estab. ug/mL [facility] Albumin/Creatin ine Ratio 8 0 - 29 mg/g creat [facility] Comment: Normal: 0 - 29 Moderately increased: 30 - 300 Severely increased: >300 Urine specimen (specimen) Urine specimen obtained by clean catch procedure / Unknown 02/08/2025 12:53 PM EDT 02/08/2025 Rory Gudino MD LAB URINE ORDERABLES Final Re sult Performing Organization Address City/[facility]/ZIP Co de Phone Number [facility] [address] [place] [address] * (ABNORMAL) Urinalysis with microscopic (02/08/2025 12:53 PM EDT) Specific [place], Urine 1.023 1.005 - 1.030 [facility] pH Urine 5.5 5.0 - 7.5 [facility] [phone] Color, Urine Yellow Yellow [facility] [phone] Appearance Urine Clear Clear [facility] WBC Esterase Urine Negative Negative [facility] [phone] Protein, Ur Negative Negative/Tra ce [facility] Glucose, Ur 3+(A) Negative [facility] [phone] Ketones, Urine Negative Negative [facility] Blood Urine Negative Negative [facility] Bilirubin Urine Negative Negative [facility] Urobilinogen Urine 0.2 0.2 - 1.0 mg/dL [facility] Nitrite, Urine Negative Negative [facility] [phone] Microscopic Examination Comment [facility] Comment:Microscopic follows if indicated. Other Microsc. Observations See below: [facility] Comment:Microscopic was kena cated and was performed. Urine specimen (specimen) Urine specimen obtained by clean catch procedure / Unknown 02/08/2025 12:53 PM EDT 02/08/2025 us Rory Gudino MD LAB URINE ORDERABLES Final Re sult [facility] [address] [place] [address] * (ABNORMAL) Renal Function Panel (02/08/2025 12:53 PM EDT) Glucose 135(H) 70 - 99 mg/dL [facility] BUN 26 8 - 27 mg/dL [facility] Creatinine 1.06(H) 0.57 - 1.00 mg/dL [facility] eGFR CKD-EPI CR 2020 57(L) >59 mL/min/1.7 3 [facility] BUN/Creatinine Ratio 25 12 - 28 [facility] Sodium 141 134 - 144 mmol/L [facility] Potassium 4.7 3.5 - 5.2 mmol/L [facility] Chloride 105 96 - 106 mmol/L [facility] Bicarbonate (CO2) 20 20 - 29 mmol/L [facility] Calcium 10.3 8.7 - 10.3 mg/dL [facility] Albumin 4.4 3.9 - 4.9 g/dL [facility] Phosphorus 3.6 3.0 - 4.3 mg/dL [facility] Blood specimen (specimen) Venous blood / Unknown 02/08/2025 12:53 PM EDT 02/08/2025 us Rory Gudino MD LAB BLOOD ORDERABLES Final Re sult [facility] [address] [place] [address] * (ABNORMAL) Hemoglobin A1c (09/22/2022 8:32 AM EDT) Hemoglobin A1C 8.0(H) (4.0-5.6) % [facility] Comment: MONITORING: In known diabetic patients, hemoglobin A1c targets should be discussed with health care provider. DIAGNOSTIC USE: The [place] Diabetes Association (ADA) and the World Health [...] Supplement 1 Testing performed or reported by [facility], a Service of [facility], [address] [place] [address] Saad Saucedo MD, Book Coverer [facility]# [id number] Blood specimen (specimen) Venous blood / Unknown 09/22/2022 8:32 AM EDT 09/22/2022 8:35 AM EDT Rina Evans MD LAB BLOOD ORDERABLES Final Resu lt [facility] from Last 3 Months or Most Recently Relevant to Health Maintenance Insurance [facility] Care Teams Shipping Point Inspector Relationship Specialty Start Date End Date Armando Nobles MD [facility] [address] [place] [address] , [address] [address] PCP - General Internal Medicine 11/19/21
--- OUTSIDE RECORDS SUMMARY | 2025-02-12 13:11 | XMS_ITS ---
Author Name [facility] Organization Unknown Problems Problem Status Onset Date Problem Type Date of Resoluti on Source Complication of transplanted kidney, unspecified complication active EncounterDiagnosisAct CCT Encounters Encounter Type Encounter Reason Primary Diagnosis Location Date Ambulatory Unspecified complication of kidney transplant [facility] 12/28/2022 Ambulatory Kidney transplan t status [facility] 06/15/2022 Care Team Organization Name Specialty Phone Email Start Date End Da te [facility] APURVA WISEMAN Primary Care 06/15/2022 [facility] APURVA BROWNNATHAN Primary Care 05/25/2022 [facility]
--- OUTSIDE RECORDS SUMMARY | 2025-02-12 13:11 | XMS_ITS | Patient Health Record ---
Author Organization [facility] Address [address] [place] [address] Care Team Providers Care Almond Blancher Hand Name Role Phone APURVA WISEMAN Primary Care Provider Parvez Mercado Jr Unavailable [phone] Reason For Referral No Information Medications Medication [...] Problem Status W/U Status Risk Notes Problem [id number] Colon cancer screening (Z12.11) Active confirmed Problem [id number] Diverticulosis o f large intestine without hemorrhage (K57.30) Active confirmed Plan Of Treatment Future Test Test Name Order Date COLONOSCOPY 05/26/2016 Insurance Providers Payer Name Payer Address Payer Phone Subscriber Number Group Number Insured Name Patient Relationship to Insured Coverage Start Date Coverage End Date MEDICARE OF [place] [address] [place] [address] [phone] [id number] ROLANDA LUCIO Self - patient is the insured [employer] [address] RAHAT GONZALEZ [phone] [id number] ROLANDA LUCIO Self - patient is the insured Medical (General) History Medical History History ICD Code colonoscopy 08-29-2009, tubular adenoma x 2, followup 3 years chronic kidney disease, peritoneal dialy sis elevated blood pressure elevated cholesterol hyperparathyroidism migraine headaches Denies LA,DM,CVA,Lung disease
--- OUTSIDE RECORDS SUMMARY | 2025-02-12 13:11 | XMS_ITS | Clinical Summary ---
Author Organization [facility] Address [address] [place] [address] Care Team Providers Care Optimization Consultant Name Role Phone Pcp, No Primary Care Provider Unavailabl e Social History Tobacco Use Types Packs/Day Years Used Date Smoking Tobacco: Never Assessed Comments Unknown Sex and Gender Information Value Date Recorded Sex Assigned at Female 12/14/2022 9:36 AM EDT Legal Sex Female 7:09 PM EST Gender Identity Female 12/14/2022 9:36 AM EDT Sexual Orientation Heterosexual (straight) 12/14 9:36 AM EDT Plan of Treatment Health Maintenance Due Date Last Done Comments Hepatitis C Virus Screening 1955 DTaP/Tdap/Td Vaccines (1 - Tdap) 1975 Mammogram 1996 Colonoscopy 2001 Pneumococcal Vaccines 50+ (1 of 1 - PCV) 2006 Zoster (Shingles) Vaccine (1 of 2) 2006 RSV Vaccine 60 years and older and Patients (1 - Risk 60-74 years 1-dose series) 2016 DXA Bone Density (Females,Ages 65 and older) 2021 COVID-19 Vaccine ( - season) 2024 Influenza Vaccine 02/08/2025 03/17/2020, , 04/17/2013, Additional history exists Hepatitis B Vaccines Aged Out No long er eligible based on patient's age to complete this topic Insurance BLUE CROSS OUT OF STATE - HMO Care Teams Optimization Consultant Relationship Specialty Start Date End Date Pcp, No PCP - General General Medicine 10/16/24
[2025-02-12 13:55] LABS: Hematocrit 36.8 % (37.0-47.0); Hemoglobin 11.8 g/dl (12.0-16.0); Imm Gran Abs Auto 0.01 X10*3/uL (0.00-0.03); Imm Gran Pct Auto 0.2 % (0.0-0.4); Lymphocytes Absolute Auto 1.3 X10*3/uL (1.2-4.9); Mean Corpuscular HGB Conc 32.1 g/dl (31.0-35.0); Mean Corpuscular Hemoglobin 29.2 pg (27.0-33.0); Mean Corpuscular Volume 91.1 fL (80.0-98.0); NRBC Abs Auto 0.000 X10*3/uL (0.0-0.012); NRBC Pct Auto 0.0 /100WBC (0.0-0.2); Platelet Count 176 X10*3/uL (160-400); Red Blood Count 4.04 X10*6/uL (4.20-5.50); White Blood Count 4.7 X10*3/uL (4.8-10.8)
[2025-02-12 14:25] LABS: Hemoglobin A1C 204.7665 umol/L; Total Hemoglobin (HGBA1C) 4358.0250 umol/L
[2025-02-12 14:38] LABS: Alanine Aminotransferase 22 U/L (0-31); Albumin Level 4.6 g/dL (3.5-5.0); Alkaline Phosphatase 82 U/L (39-117); Anion Gap 13 (12-20); Aspartate Amino Transferase 21 U/L (5-31); Blood Urea Nitrogen 24 mg/dL (9-16); Calcium 10.5 mg/dL (8.4-10.2); Carbon Dioxide 27 mmol/L (22-29); Chloride 109 mmol/L (96-108); Cholesterol 135 mg/dL (<200); Estimated Glomerular Filt Rate 53; HDL Cholesterol 42 mg/dL (>40); Magnesium 2.1 mg/dL (1.6-2.6); Potassium 4.8 mmol/L (3.3-5.1); Sodium 144 mmol/L (135-145); Total Protein 7.4 g/dL (6.5-8.0); Triglycerides 131 mg/dL (<150)
[2025-02-12 14:55] LABS: Folate 9.4 ng/mL (> or = 4.0); Vitamin B12 357 pg/mL (200-900)
== END 2025-02-12 12:38 | disposition home or self-care (01) ==
LOC: HO.LAB 12:37
PROVIDERS: PCP Internal Medicine; Visit Provider Physician Assistant Medical
DX: Z00.00 Encounter for general adult medical examination without abnormal findings (principal); Z13.6 Encounter for screening for cardiovascular disorders; Z13.21 Encounter for screening for nutritional disorder
CPT/HCPCS: 36415; 80053; 80061; 80076; 82248; 82306; 82607; 82746; 83036; 83735; 84443; 85025

== ENCOUNTER 2025-02-14 14:34 | Outpatient (AMB) | payer BC, SELFPAY ==
--- OUTSIDE RECORDS SUMMARY | 2025-02-14 14:36 | XMS_ITS | Clinical Summary ---
Author Organization [facility] Address [address] [address] Phone Care Team Providers Care Medical Support Specialist Name Role Phone Armando Nobles MD Primary [...] ductal hyperplasia of breast 05/25/2018 Overview (05/19/2022): [facility] Anemia in chronic kidney disease 05/23/2013 [...] Encounters Date Type Department Care Team Description 02/14/2025 Office Communication [facility] [address] [facility] [address] [place] [phone] Maryann Alonso 01/12/2025 Orders Only [facility] [address] [place] [phone] Rory Gudino MD Kidney transplant status; Essential (primary) hypertension 12/25/2024 Refill [facility] [place] [address] [facility] [address] [place] [phone] Rory Gudino MD 12/20/2024 Refill [facility] [address] [facility] [address] [place] [address] Rory Gudino MD Long-term drug therapy; Hypertension [...] 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 [address] [address] Rory Gudino MD [address] [address] Health Maintenance Due Date Last Done Comments [...] Urine 0-5 0 - 5 /hpf [facility] RBC, Urine None seen 0 - 2 /hpf [facility] Squamous Epithelial, Urine None seen 0 - 10 /hpf [facility] Casts None seen None seen /lpf [facility] Bacteria, Urine None seen None seen/Few [facility] 02/08/2025 12:5 3 PM EDT 02/08/2025 Rory Gudino MD LAB MICROBIOLOGY - GENERAL OR DERABLES Final Result Performing Organization Address City/[facility]/ZIP Co de Phone Number [facility] [address] [place] [address] * (ABNORMAL) Tacrolimus level (02/08/2025 12:53 PM EDT) Tacrolimus Lvl 3.6(L) 5.0 - 20.0 ng/mL [facility] Comment: Target steady state trough concentration for [...] [facility] - 02/12/2025 7:05 AM EDT Test(s) [id number] (FK506), Blood was developed and its performance characteristics determined by [facility]. It has not been cleared or approved by the Food and Drug Administration. Rory Gudino MD LAB BLOOD ORDERABLES Final Re sult Performing Organization Address City/[facility]/ZIP Co de Phone Number [facility] [address] [place] [address] * Protein, Total, Random Urine w/Creatinine (Protein/Creat Ratio) (02/08/2025 12:53 PM EDT) Creatinine, Ur 70.5 Not Estab. mg/dL [facility] Protein, Ur 5.8 Not Estab. mg/dL [facility] Urine Protein/Creatin ine Ratio 82 0 - 200 mg/g creat [facility] Urine specimen (specimen) Urine specimen obtained by clean catch procedure / Unknown 02/08/2025 12:53 PM EDT 02/08/2025 Rory Gudino MD LAB URINE ORDERABLES Final Re sult Performing Organization Address [facility]/ZIP Co de Phone Number [facility] [address] [place] [address] * Urine Albumin / Creatinine Ratio (02/08/2025 12:53 PM EDT) Albumin, Urine 5.7 Not Estab. ug/mL [facility] Albumin/Creatin ine Ratio 8 0 - 29 mg/g creat [facility] Comment: Normal: 0 - 29 Moderately increased: 30 - 300 Severely increased: >300 Urine specimen (specimen) Urine specimen obtained by clean catch procedure / Unknown 02/08/2025 12:53 PM EDT 02/08/2025 Rory Gudino MD LAB URINE ORDERABLES Final Re sult Performing Organization Address [facility] de Phone Number [facility] [address] [place] [address] * (ABNORMAL) Urinalysis with microscopic (02/08/2025 12:53 PM EDT) Specific [place], Urine 1.023 1.005 - 1.030 [facility] [phone] pH Urine 5.5 5.0 - 7.5 [facility] [phone] Color, Urine Yellow Yellow [facility] [phone] Appearance Urine Clear Clear [facility] [phone] WBC Esterase Urine Negative Negative [facility] [phone] Protein, Ur Negative Negative/Tra ce [facility] Glucose, Ur 3+(A) Negative [facility] Ketones, Urine Negative Negative [facility] Blood Urine Negative Negative [facility] Bilirubin Urine Negative Negative [facility] Urobilinogen Urine 0.2 0.2 - 1.0 mg/dL [facility] Nitrite, Urine Negative Negative [facility] Microscopic Examination Comment [facility] Comment:Microscopic follows if indicated. Other Microsc. Observations See below: [facility] Comment:Microscopic was kena cated and was performed. Urine specimen (specimen) Urine specimen obtained by clean catch procedure / Unknown 02/08/2025 12:53 PM EDT 02/08/2025 us Rory Gudino MD LAB URINE ORDERABLES Final Re sult [facility] [address] [place] [address] * (ABNORMAL) Renal Function Panel (02/08/2025 12:53 PM EDT) Glucose 135(H) 70 - 99 mg/dL [facility] BUN 26 8 - 27 mg/dL [facility] Creatinine 1.06(H) 0.57 - 1.00 mg/dL [facility] eGFR CKD-EPI CR 2020 57(L) >59 mL/min/1.7 3 [facility] BUN/Creatinine Ratio 25 12 - 28 [facility] Sodium 141 134 - 144 mmol/L [facility] Potassium 4.7 3.5 - 5.2 mmol/L [facility] Chloride 105 96 - 106 mmol/L [facility] Bicarbonate (CO2) 20 20 - 29 mmol/L [facility] Calcium 10.3 8.7 - 10.3 mg/dL [facility] Albumin 4.4 3.9 - 4.9 g/dL [facility] Phosphorus 3.6 3.0 - 4.3 mg/dL [facility] Blood specimen (specimen) Venous blood / Unknown 02/08/2025 12:53 PM EDT 02/08/2025 us Rory Gudino MD LAB BLOOD ORDERABLES Final Re sult [facility] [address] [place] [address] * (ABNORMAL) Hemoglobin A1c (09/22/2022 8:32 AM EDT) Hemoglobin A1C 8.0(H) (4.0-5.6) % [facility] Comment: MONITORING: In known diabetic patients, hemoglobin A1c targets should be discussed with health care provider. DIAGNOSTIC USE: The [place] Diabetes Association (ADA) and the World Health [...] Supplement 1 Testing performed or reported by [facility], a Service of [facility], [address] [place] [address] Saad Saucedo MD, Plastics Sheet Finishing Press Operator [facility]# [id number] Blood specimen (specimen) Venous blood / Unknown 09/22/2022 8:32 AM EDT 09/22/2022 8:35 AM EDT Rina Evans MD LAB BLOOD ORDERABLES Final Resu lt [facility] from Last 3 Months or Most Recently Relevant to Health Maintenance Insurance [facility] Care Teams Medical Support Specialist Relationship Specialty Start Date End Date Armando Nobles MD [address] , [facility] [address] [place] [id number] PCP - General Internal Medicine 11/19/21
--- OUTSIDE RECORDS SUMMARY | 2025-02-14 14:36 | XMS_ITS | Clinical Summary ---
Author Organization [facility] Address [address] [place] [address] Care Team Providers Care Credit Report Checker Name Role Phone Pcp, No Primary Care [...] OUT OF STATE - HMO Care Teams Credit Report Checker Relationship Specialty Start Date End Date Pcp, No PCP - General General Medicine 10/16/24
--- NOTE | 2025-02-14 14:48 | MHC.PC.OV ---
Vital Signs 02/14/25 14:49 Height 5 ft 2 in Weight 127 lb 4 oz BMI 23.3 BP 110/68 Blood Pressure Location Rt brachial Position Sitting Pulse 95 Pulse Source Pulse Oximeter Temp 97.3 F Temp Source Temporal Artery Scan Pulse Oximetry (%) 98 Oxygen Delivery Method Room Air Intake Visit Reasons: 6 month f/u Intake Note: Patient is here to follow up on DM, CKD, Dislipidemia. Fleet Administrator Required: No Cyber Forensics Analyst: Not Required per policy Accompanied by: Self / Same As Patient Allergies oxycodone (From PERCOCET) Allergy (Unknown, Verified 02/15/25 07:47) NAUSEA & VOMITING semaglutide (From Rybelsus) Adverse Reaction (Verified 02/15/25 07:47) Vomiting Medication List - Last Reconciled 02/15/25 by Armando Nobles MD amlodipine 10 mg PO DAILY blood sugar diagnostic (FreeStyle Lite Strips) As directed once daily calcium carbonate 1,250 mg (2.5 x 500 mg calcium (1,250 mg)) PO DAILY 90 days cholecalciferol (vitamin D3) 50 mcg PO DAILY dapagliflozin propanediol (Farxiga) 10 mg PO DAILY 90 days insulin glargine (Lantus Solostar U-100 Insulin) units subcut lancets (FreeStyle Lancets) As directed once daily lancets (FreeStyle Lancets) daily magnesium oxide 400 mg PO DAILY metformin ER 1,000 mg PO BID metoprolol succinate ER mg PO mycophenolate sodium 360 mg PO BID pen needle, diabetic (BD Ultra-Fine Gill Pen Needle) As directed once daily simvastatin 20 mg PO BEDTIME tacrolimus XR (Envarsus XR) 2 mg PO DAILY tirzepatide (Mounjaro) 10 mg subcut QWEEK valsartan 80 mg PO DAILY Tobacco use date assessed: 02/14/25 Fall risk assessment: No Falls in past year Last assessed Fall Risk: 02/14/25 Dental Screening Dental Screen Date: 08/16/24 [facility] Medical History Osteopenia History of mammogram (~08/07/24) Osteoarthritis of left hip Dyslipidemia Diabetes type 2, uncontrolled Hypertension Hyperlipidemia Stage 4 chronic kidney disease Lobular carcinoma in situ of left breast Surgical History Hx of colonoscopy (~11/17/23) History of kidney transplant (06/09/18) History of lumpectomy of left breast History of left breast biopsy (04/2018) History of biopsy History of Mohs surgery for squamous cell carcinoma of skin History of endometrial ablation History of umbilical hernia repair Family History Mother History of melanoma History of stomach cancer History of pulmonary embolism Social History Household Members: Significant Other Housing: Apartment Alcohol intake: never Patient Tobacco Use Status: Never used Tobacco e-Cigarette/Vaping Use: Never Used Second Hand Smoke Exposure: No service: No Current occupational status: employed and retired 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 Fox Dill, Holli Whitaker, Abelardo Wright and colleagues, with an educational gerard from [employer]. Physical exam (Primary Care) Vital Signs: Last Vital Signs Temp 97.3 F 02/14/25 14:49 Pulse 95 02/14/25 14:49 BP 110/68 02/14/25 14:49 Pulse Ox 98 02/14/25 14:49 Oxygen Delivery Method Room Air 02/14/25 14:49 BMI result Body Mass Index 23.3 Tobacco/Smoking Status: Tobacco use Status Tobacco use date assessed 02/14/25 02/14/25 14:52 Patient Tobacco Use Status Never used Tobacco 02/14/25 14:52 e-Cigarette/Vaping Use Never Used 02/14/25 14:52 Thrive Assessment: Date of Thrive Assessment Date Thrive assessed 08/16/24 02/14/25 14:52 Coding Level of Care Code Est Pt Level 3 (48413) Complex EM visit Add On G2211 Diagnoses Diabetes type 2, uncontrolled E11.65 Stage 4 chronic kidney disease N18.4 Rash R21 Assessment & Plan Assessment & Plan (1) Diabetes type 2, uncontrolled: Code(s): E11.65 - Type 2 diabetes mellitus with hyperglycemia Category: Medical Plan: All care from [facility] endocrinology. (2) Stage 4 chronic kidney disease: Code(s): N18.4 - Chronic kidney disease, stage 4 (severe) Category: Medical Plan: All care from [facility] Nephrology. (3) Rash: Code(s): R21 - Rash and other nonspecific skin eruption Plan: Appointment with general surgeon given for excision of the papule. Plan History of Present Illness - The patient is a 69-year-old female presenting with evaluation of a fleshy papule. - The papule has been present for a long time but has recently increased in size, causing discomfort. - The patient has anemia with a hemoglobin level of 11.8 g/dL and is seeing a curator of education. - She has diabetes mellitus with an A1c of 6.5%, managed by an [place] consultant. Social History Review of Systems - Dermatological: Reports a fleshy papule that has increased in size and causes discomfort. Physical Exam General: Cooperative and healthy appearing Nutritional Appearance: Well nourished Orientation/consciousness: Patient oriented x3 Limitations: No limitations Head: Normal to inspection General: Appearance normal, both eyes and all related structures Neck: Normal visual inspection Chest: Normal palpation of entire chest wall Respiratory: Normal respiratory effort Neurology: Patient oriented x3 Abd: 1 cm erythematous fleshy papule. Results - Labs: Hemoglobin level is 11.8 g/dL. - Labs: A1c is 6.5%. Plan 1. Fleshy Papule - The papule is benign but causing discomfort due to its size increase. - Plan to refer the patient to a surgeon for removal of the papule. 2. Anemia - The patient is under the care of a curator of education for anemia management. 3. Diabetes Mellitus - Diabetes is managed by an [place] consultant with an A1c of 6.5%. Discussion Notes The patient was informed that the fleshy papule is benign and not cancerous, but due to discomfort, surgical removal is recommended. A referral to a surgeon will be made for this procedure. The patient is aware of her anemia and diabetes management under the care of specialists. Patient Instructions - Follow up with the surgeon for removal of the papule. - Continue management of anemia and diabetes with your specialists.
[2025-02-14 14:49] VITALS: BP 110/68; PULSE 95; TEMP 36.3; O2SAT 98; BMI 23.3
== END 2025-02-14 16:23 | disposition home or self-care (01) ==
LOC: HO.HMCH 14:34
PROVIDERS: PCP Internal Medicine; Visit Provider Internal Medicine
DX: E11.65 Type 2 diabetes mellitus with hyperglycemia (principal); N18.4 Chronic kidney disease, stage 4 (severe); R21 Rash and other nonspecific skin eruption

== ENCOUNTER 2025-03-08 10:08 | Outpatient (AMB) | payer BC, SELFPAY ==
--- NOTE | 2025-03-08 10:26 | A.OFFVIS_ITS ---
Vital Signs 3 03/08/25 10:35 Height 5 ft 2 in Weight 126 lb 2 oz BMI 23.1 BP 122/72 Blood Pressure Location Lt brachial Position Sitting Pulse 99 Intake Visit Reasons: Fleshy papule on the abdomen Intake Note: Patient is seen in office for evaluation of a fleshy papule of the abdomen. Pt c/o:has a red lesion on the left side of the abdomen for yrs, has increase in size and lately feel burning pain, would like to have is surgically removed Hazardous Waste Material Technician Required: No Accompanied by: Self / Same As Patient Allergies oxycodone (From PERCOCET) Allergy (Unknown, Verified 03/08/25 10:35) NAUSEA & VOMITING semaglutide (From Rybelsus) Adverse Reaction (Verified 03/08/25 10:35) Vomiting Medication List - Last Reconciled 03/08/25 by Brian Lyn MD amlodipine 10 mg PO DAILY blood sugar diagnostic (FreeStyle Lite Strips) As directed once daily calcium carbonate 1,250 mg (2.5 x 500 mg calcium (1,250 mg)) PO DAILY 90 days cholecalciferol (vitamin D3) 50 mcg PO DAILY dapagliflozin propanediol (Farxiga) 10 mg PO DAILY 90 days insulin glargine (Lantus Solostar U-100 Insulin) units subcut lancets (FreeStyle Lancets) As directed once daily lancets (FreeStyle Lancets) daily magnesium oxide 400 mg PO DAILY metformin ER 1,000 mg PO BID metoprolol succinate ER mg PO mycophenolate sodium 360 mg PO BID pen needle, diabetic (BD Ultra-Fine Gill Pen Needle) As directed once daily simvastatin 20 mg PO BEDTIME tacrolimus XR (Envarsus XR) 2 mg PO DAILY tirzepatide (Mounjaro) 10 mg subcut QWEEK valsartan 80 mg PO DAILY HPI Comments Details: 69-year-old female presenting for evaluation of a red raised lesion located on the left upper abdomen. She reports having a small red tatum for years without significant change until recently when the lesion suddenly became much larger. The lesion became raised and associated with some burning discomfort. She denies any trauma to the area and denies any bleeding or discharge. She requested excision of this new lesion. [facility] Medical History Osteopenia History of mammogram (~08/07/24) Osteoarthritis of left hip Dyslipidemia Diabetes type 2, uncontrolled Hypertension Hyperlipidemia Stage 4 chronic kidney disease Lobular carcinoma in situ of left breast Surgical History Hx of colonoscopy (~11/17/23) History of kidney transplant (06/09/18) History of lumpectomy of left breast History of left breast biopsy (04/2018) History of biopsy History of Mohs surgery for squamous cell carcinoma of skin History of endometrial ablation History of umbilical hernia repair Family History Mother History of melanoma History of stomach cancer History of pulmonary embolism Social History Household Members: Significant Other Housing: Apartment Alcohol intake: never Patient Tobacco Use Status: Never used Tobacco e-Cigarette/Vaping Use: Never Used Second Hand Smoke Exposure: No service: No Current occupational status: employed and 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 No ulceration noted. Multiple smaller lesions noted throughout the abdomen. Neuro General: patient oriented x3 Assessment & Plan Assessment & Plan (1) Vallecillo angioma: Comment: Abdominal wall 4 mm Code(s): D18.01 - Hemangioma of skin and subcutaneous tissue Category: Medical Plan 69-year-old female patient returning for evaluation of an abdominal wall skin lesion which is red and increasing in size. On examination the patient is found to have a benign-appearing vallecillo angioma. I recommended excision of the lesion as an office based procedure under local anesthesia and after discussion of the procedure, risks and alternatives, she consents to the surgery. Coding Level of Care Code Est Pt Level 4 (10634) Diagnoses Vallecillo angioma D18.01
[2025-03-08 10:35] VITALS: BP 122/72; PULSE 99; BMI 23.1
--- OUTSIDE RECORDS SUMMARY | 2025-03-08 10:52 | XMS_ITS | Encounter Summary ---
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 [address] [facility] [address] [place] [phone] Rory Gudino MD [address] [facility] [address] [place] [address] documented as of this encounter Visit Diagnoses Diagnosis Type 2 diabetes mellitus with other diabetic kidney complication (HCC) documented in this encounter Care Teams Gm Relationship Specialty Start Date End Date Armando Nobles MD [address] [place] [address] PCP - General Internal Medicine 11/19/21 documented as of this encounter
--- OUTSIDE RECORDS SUMMARY | 2025-03-08 10:52 | XMS_ITS | Encounter Summary ---
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 [address] [facility] [address] [place] [phone] Rory Gudino MD [address] [facility] [address] [place] [address] documented as of this encounter Visit Diagnoses Diagnosis Hypertension- Primary documented in this encounter Care Teams Centrifugal Machine Tender Relationship Specialty Start Date End Date Armando Nobles MD [address] [place] [address] PCP - General Internal Medicine 11/19/21 documented as of this encounter
--- OUTSIDE RECORDS SUMMARY | 2025-03-08 10:52 | XMS_ITS | Clinical Summary ---
Author Organization [facility] Address [address] [address] Phone Care Team Providers Care Instrument Repairer Name Role Phone Armando Nobles MD Primary [...] A DAY 360 tablet 4 5 Active Active Problems Problem Noted Date Diagnosed Date Immunosuppression 11/24/2022 Essential (primary) hypertension 11/24/2022 Type 2 diabetes mellitus wit h other diabetic kidney complication 08/12/2021 Kidney transplant status 08/19/2020 History of renal transplant 06/09/2018 Overview (05/19/2022): campath induction Atypical ductal hyperplasia of breast 05/25/2018 Overview (05/19/2022): [facility] Anemia in chronic kidney disease 05/23/2013 Iron [...] Encounters Date Type Department Care Team Description 02/20/2025 9:15 AM EDT [facility] [address] [place] [phone] Rory Gudino MD Kidney transplant status (Primary Dx) 02/14/2025 Office Communication [facility] [address] [place] [phone] GavinAshMaryann 01/12/2025 Orders Only [facility] [address] [address] Rory Gudino MD Kidney transplant status; Essential (primary) hypertension 12/25/2024 Refill [facility] [address] [place] [phone] Rory Gudino MD 12/20/2024 Refill [facility] [address] [place] [address] Rory Gudino MD Long-term drug therapy; Hypertension [...] 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 Not on file Last Filed Vital Signs Vital Sign Reading Time Taken Comments Blood Pressure 116/60 02/20/2025 9:17 AM EDT Pulse 96 02/20/2025 9:17 AM EDT Temperature - - Respiratory Rate - - Oxygen Saturation 99% 02/20/2025 9:17 AM EDT Inhaled Oxygen Concentration - - Weight 57.7 kg (127 lb 3.2 oz) 02/20/2025 9:17 A M EDT Height 157.5 cm (5' 2 ) 05/09/2023 8:37 AM EDT Body Mass Index 23.27 05/09/2023 8:37 AM EDT Plan of Treatment Upcoming Encounters Date Type Department Care Team (Late st Contact Info) Description 08/14/2025 3:00 PM EST Office Visit [facility] [address] [address] Rory Gudino MD [address] [phone] Health Maintenance Due Date Last Done Comments Breast Cancer Screening 1955 Pneumococcal Vaccine: 50+ Years (3 of 3 - PCV) 08/10/2014 08/10/2013, 04/25/2012 Diabetes: Ophthalmology Exam 08/11/2020 Diabetes: Pedal Pulse Checked 08/11/2020 Diabetes: Sensory Foot Exam 08/11/2020 Diabetes: Visual Foot Exam 08/11/2020 Colonoscopy (Post-Transplant Patient) 08/19/2020 Mammogram (Post-Transplant Patient) 08/19/2020 Pelvic Exam (Post-Transplant Patient) 08/19/2020 Diabetes: Hemoglobin A1C 12/23/202209/22/2 023, 09/02/2022, 06/10/2021, Additional history exists Influenza [...] Urine 0-5 0 - 5 /hpf [facility] RBC, Urine None seen 0 - 2 /hpf [facility] Squamous Epithelial, Urine None seen 0 - 10 /hpf [facility] Casts None seen None seen /lpf [facility] Bacteria, Urine None seen None seen/Few [facility] 02/08/2025 12:5 3 PM EDT 02/08/2025 Rory Gudino MD LAB MICROBIOLOGY - GENERAL OR DERABLES Final Result Performing Organization Address [facility] Co de Phone Number [facility] [address] [place] [address] * (ABNORMAL) Tacrolimus level (02/08/2025 12:53 PM EDT) Tacrolimus Lvl 3.6(L) 5.0 - 20.0 ng/mL [facility] Comment: Target steady state trough concentration for [...] [facility] - 02/12/2025 7:05 AM EDT Test(s) 275797-Ehhdoxabmi (FK506), Blood was developed and its performance characteristics determined by [employer]. It has not been cleared or approved by the Food and Drug Administration. Rory Gudino MD LAB BLOOD ORDERABLES Final Re sult Performing Organization Address [facility]/ZIP Co de Phone Number [facility] [address] [place] [phone] * Protein, Total, Random Urine w/Creatinine (Protein/Creat Ratio) (02/08/2025 12:53 PM EDT) Creatinine, Ur 70.5 Not Estab. mg/dL [facility] Protein, Ur 5.8 Not Estab. mg/dL [facility] Urine Protein/Creatin ine Ratio 82 0 - 200 mg/g creat [facility] Urine specimen (specimen) Urine specimen obtained by clean catch procedure / Unknown 02/08/2025 12:53 PM EDT 02/08/2025 Rory Gudino MD LAB URINE ORDERABLES Final Re sult Performing Organization Address [facility] Co de Phone Number [facility] [address] [place] [address] * Urine Albumin / Creatinine Ratio (02/08/2025 12:53 PM EDT) Albumin, Urine 5.7 Not Estab. ug/mL [facility] Albumin/Creatin ine Ratio 8 0 - 29 mg/g creat [facility] Comment: Normal: 0 - 29 Moderately increased: 30 - 300 Severely increased: >300 Urine specimen (specimen) Urine specimen obtained by clean catch procedure / Unknown 02/08/2025 12:53 PM EDT 02/08/2025 Rory Gudino MD LAB URINE ORDERABLES Final Re sult Performing Organization Address [facility] de Phone Number [facility] [address] [place] [address] * (ABNORMAL) Urinalysis with microscopic (02/08/2025 12:53 PM EDT) Specific Fluker, Urine 1.023 1.005 - 1.030 [facility] [phone] pH Urine 5.5 5.0 - 7.5 [facility] [phone] Color, Urine Yellow Yellow [facility] [phone] Appearance Urine Clear Clear [facility] [place] [phone] WBC Esterase Urine Negative Negative [facility] Protein, Ur Negative Negative/Tra ce [facility] Glucose, Ur 3+(A) Negative [facility] Ketones, Urine Negative Negative [facility] [place] [phone] Blood Urine Negative Negative [facility] Bilirubin Urine Negative Negative [facility] [place] Urobilinogen Urine 0.2 0.2 - 1.0 mg/dL [facility] Nitrite, Urine Negative Negative [facility] [place] Microscopic Examination Comment [facility] [phone] Comment:Microscopic follows if indicated. Other Microsc. Observations See below: [facility] Comment:Microscopic was kena cated and was performed. Urine specimen (specimen) Urine specimen obtained by clean catch procedure / Unknown 02/08/2025 12:53 PM EDT 02/08/2025 us Rory Gudino MD LAB URINE ORDERABLES Final Re sult [facility] [address] [place] [address] * (ABNORMAL) Renal Function Panel (02/08/2025 12:53 PM EDT) Glucose 135(H) 70 - 99 mg/dL [facility] BUN 26 8 - 27 mg/dL [facility] Creatinine 1.06(H) 0.57 - 1.00 mg/dL [facility] eGFR CKD-EPI CR 2020 57(L) >59 mL/min/1.7 3 [facility] BUN/Creatinine Ratio 25 12 - 28 [facility] Sodium 141 134 - 144 mmol/L [facility] Potassium 4.7 3.5 - 5.2 mmol/L [facility] [place] Chloride 105 96 - 106 mmol/L [facility] Bicarbonate (CO2) 20 20 - 29 mmol/L [facility] Calcium 10.3 8.7 - 10.3 mg/dL [facility] Albumin 4.4 3.9 - 4.9 g/dL [facility] Phosphorus 3.6 3.0 - 4.3 mg/dL [facility] Blood specimen (specimen) Venous blood / Unknown 02/08/2025 12:53 PM EDT 02/08/2025 us Rory Gudino MD LAB BLOOD ORDERABLES Final Re sult [facility] [address] [place] [address] * (ABNORMAL) Hemoglobin A1c (09/22/2022 8:32 AM EDT) Hemoglobin A1C 8.0(H) (4.0-5.6) % [facility] Comment: MONITORING: In known diabetic patients, hemoglobin A1c targets should be discussed with health care provider. DIAGNOSTIC USE: The [place] Diabetes Association (ADA) and the World Health [...] Supplement 1 Testing performed or reported by [facility], a Service of [address] [address] Saad Saucedo MD, Rubber Goods Tester [facility]# [id number] Blood specimen (specimen) Venous blood / Unknown 09/22/2022 8:32 AM EDT 09/22/2022 8:35 AM EDT Rina Evans MD LAB BLOOD ORDERABLES Final Resu lt [facility] from Last 3 Months or Most Recently Relevant to Health Maintenance Insurance * Guarantor: Janell Salas Account Type Relation to Patient Date of Phone Billing Address Personal/Family Self 1955 [address] [place] [address] Care Teams Instrument Repairer Relationship Specialty Start Date End Date Armando Nobles MD [address] [place] [address] PCP - General Internal Medicine 11/19/21
--- OUTSIDE RECORDS SUMMARY | 2025-03-08 10:52 | XMS_ITS | Encounter Summary ---
Author Organization [facility] Address [address] [facility] [address] [place] [address] Phone Care Team Providers Care Engineering Leader Name Role Phone Armando Nobles MD Primary Care Provider + Reason for Visit * Reason Comments Med Refill Encounter Details Date Type Department Care Team ([facility] Contact Info) Description 10/24/2023 Refill [facility] [address] 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 [address] [facility] [address] [place] [address] Rory Gudino MD [address] [facility] [address] [place] [address] documented as of this encounter Visit Diagnoses Not on filedocumented in this encounter Care Teams Engineering Leader Relationship Specialty Start Date End Date Armando Nobles MD [address], [facility] [address] [place] [address] PCP - General Internal Medicine 11/19/21 documented as of this encounter
--- OUTSIDE RECORDS SUMMARY | 2025-03-08 10:52 | XMS_ITS | Clinical Summary ---
Author Organization [facility] Address [address] [place] [address] Care Team Providers Care Data Processing Control Clerk Name Role Phone Pcp, No Primary Care [...] Health Maintenance Due Date Last Done Comments Advance Care Planning 1955 Hepatitis C Virus Screening 1955 DTaP/Tdap/Td Vaccines [...] age to complete this topic Insurance [employer] OUT OF STATE - HMO Care Teams Data Processing Control Clerk Relationship Specialty Start Date End Date Pcp, No PCP - General General Medicine 10/16/24
--- OUTSIDE RECORDS SUMMARY | 2025-03-08 10:52 | XMS_ITS | Patient Health Record ---
Author Organization [facility] Address [address] [place] [address] Care Team Providers Care Barrow Worker Name Role Phone APURVA WISEMAN Primary Care Provider Parvez Mercado Jr Unavailable Reason For Referral No Information Medications Medication [...] Problem Status W/U Status Risk Notes Problem [id number] Colon cancer screening (Z12.11) Active confirmed Problem 366712684 Diverticulosis o f large intestine without hemorrhage (K57.30) Active confirmed Plan Of Treatment Future Test Test Name Order Date COLONOSCOPY 05/26/2016 Insurance Providers Payer Name Payer Address Payer Phone Subscriber Number Group Number Insured Name Patient Relationship to Insured Coverage Start Date Coverage End Date MEDICARE OF [place] [address] [place] [address] [id number] ROLANDA LUCIO Self - patient is the insured [employer] [address] RAHAT GONZALEZ [phone] [id number] ROLANDA LUCIO Self - patient is the insured Medical (General) History Medical History History ICD Code colonoscopy 08-29-2009, tubular adenoma x 2, followup 3 years chronic kidney disease, peritoneal dialy sis elevated blood pressure elevated cholesterol hyperparathyroidism migraine headaches Denies NC,DM,CVA,Lung disease
== END 2025-03-08 10:40 | disposition home or self-care (01) ==
LOC: HO.HGS 10:08
PROVIDERS: PCP Internal Medicine; Visit Provider Surgery
DX: D18.01 Hemangioma of skin and subcutaneous tissue (principal)
CPT/HCPCS: 99214

== ENCOUNTER 2025-04-23 09:54 | Outpatient (AMB) | payer BC, SELFPAY ==
--- NOTE | 2025-04-23 10:18 | A.OFFVIS_ITS ---
Vital Signs 04/23/25 10:35 Height 5 ft 2 in Weight 125 lb 10.616 oz BMI 23.0 BP 121/72 Blood Pressure Location Lt brachial Position Sitting Pulse 101 H Intake Visit Reasons: exc skin lesion abdomen Intake Note: Patient is seen for office procedure: Excsion of angioma of the abdominal wall. Pt c/o: s/p: 04/30/25 @ 10:15 Mop Man Required: No Accompanied by: Self / Same As Patient Allergies oxycodone (From PERCOCET) Allergy (Unknown, Verified 03/08/25 10:35) NAUSEA & VOMITING semaglutide (From Rybelsus) Adverse Reaction (Verified 03/08/25 10:35) Vomiting HPI Comments Details: Patient returns today for excision of hemangioma of the abdominal wall left upper quadrant [facility] Medical History Osteopenia History of mammogram (~08/07/24) Osteoarthritis of left hip Dyslipidemia Diabetes type 2, uncontrolled Hypertension Hyperlipidemia Stage 4 chronic kidney disease Lobular carcinoma in situ of left breast Surgical History Hx of colonoscopy (~11/17/23) History of kidney transplant (06/09/18) History of lumpectomy of left breast History of left breast biopsy (04/2018) History of biopsy History of Mohs surgery for squamous cell carcinoma of skin History of endometrial ablation History of umbilical hernia repair Family History Mother History of melanoma History of stomach cancer History of pulmonary embolism Social History Household Members: Significant Other Housing: Apartment Alcohol intake: never Patient Tobacco Use Status: Never used Tobacco e-Cigarette/Vaping Use: Never Used Second Hand Smoke Exposure: No service: No Current occupational status: employed and retired 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 Cognitive needs: No Hearing needs: No Vision needs: Yes (glasses) Office Procedures Excision Details: Preoperative diagnosis: Vallecillo hemangioma left upper quadrant abdomen Postoperative diagnosis: Same Procedure: Excision of vallecillo hemangioma left upper quadrant abdomen Surgeon: Brian Lyn MD Cloth Grader: None Anesthesia: Lidocaine 1% with epinephrine Indications for procedure: 69-year-old female patient presenting with an enlarging red lesion in the left upper quadrant abdomen Operative findings: 3 mm red raised lesion consistent with a vallecillo hemangioma Specimen: Skin lesion left upper quadrant Estimated blood loss: 0 mL Complications: None Procedure details: Patient was brought to the procedure room and placed in a supine position. The site of surgery was confirmed by the patient in the left upper quadrant. After assuring informed consent, the skin was prepped with Betadine and draped in a sterile fashion. Local anesthesia was then infiltrated circumferentially around the lesion. An elliptical incision oriented transversely was then created with a scalpel and carried out through subcutaneous tissue and around the skin lesion. The lesion was passed off the table and sent to pathology for further examination. Skin was then closed using interrupted 3-0 nylon sutures. Sterile dressings consisting of 2 x 2 gauze and Tegaderm were then applied. The patient tolerated the procedure well. She was discharged home in stable condition. [id number]-[id number]/arms/legs < 0.5cm Procedure code (CPT) selection complete Assessment & Plan Assessment & Plan (1) Vallecillo angioma: Comment: Abdominal wall 4 mm Code(s): D18.01 - Hemangioma of skin and subcutaneous tissue Category: Medical Plan Patient underwent excision of skin lesion today and will return approximately 1 week for suture removal. Orders: Orders Surgical Today D18. - Hemangioma of skin and subcutaneous tissue Coding Level of Care Code Procedure Only Diagnoses Vallecillo angioma D18. CPT Codes Trunk/Arms/Legs - CPT: 40875-xkotl/arms/legs < 0.5cm ([id number])
[2025-04-23 10:35] VITALS: BP 121/72; PULSE 101; BMI 23.0
--- OUTSIDE RECORDS SUMMARY | 2025-04-23 11:20 | XMS_ITS | Clinical Summary ---
Author Organization [facility] Address [address] [address] Phone Care Team Providers Care Assistant Chief Engineer Name Role Phone Armando Nobles MD Primary [...] 5 Active cholecalciferol (VITAMIN D-3) 50 MCG (2000 UT) capsuleIndication s:Long-term drug therapy TAKE ONE CAPSULE BY MOUTH ONCE DAILY 30 capsule 10 5 Active metoprolol succinate XL (TOPROL XL) 25 MG 24 hr tabletIndications :Hypertension TAKE ONE-HALF TABLET BY MOUTH ONCE DAILY 15 tablet 11 5 Active metFORMIN XR (GLUCOPHAGE-XR) 500 MG 24 hr tablet TAKE TWO TABLETS BY MOUTH TWO TIMES A DAY 360 tablet 4 5 Active magnesium oxide (MAG-OX) 400 MG tablet TAKE 1 TABLET (400 MG TOTAL) BY MOUTH IN THE MORNING AND 1 TABLET (400 MG TOTAL) IN THE EVENING. 60 tablet 2 5 06/16/20 25 Active Active Problems Problem Noted Date Diagnosed Date Immunosuppression 11/24/2022 Essential (primary) hypertension 11/24/2022 Type 2 diabetes mellitus wit h other diabetic kidney complication 08/12/2021 Kidney transplant status 08/19/2020 History of renal transplant 06/09/2018 Overview (05/19/2022): [facility] induction Atypical ductal hyperplasia of breast 05/25/2018 Overview (05/19/2022): [facility] Anemia in chronic kidney disease 05/23/2013 [...] Encounters Date Type Department Care Team Description 03/18/2025 Refill [facility] [address] [place] [address] Rory Gudino MD 03/15/2025 Refill [facility] [address] [address] Amauri Borja MD 02/20/2025 9:15 AM EDT Office Visit [facility] [address] [address] Rory Gudino MD Kidney transplant status (Primary Dx) 02/14/2025 Office Communication [facility] [place] [id number] [address] Maryann Alonso from Last 3 Months Immunizations Immunization Administration [...] 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 [address] [address] Rory Gudino MD [address] [address] Health Maintenance Due Date Last Done Comments [...] Date/Time Associated Diagnosis Comments TACROLIMUS LEVEL Routine 03/08/2025 1:18 PM EDT Kidney transplant status TACROLIMUS LEVEL Routine 02/08/2025 12:5 3 PM [...] Recently Relevant to Health Maintenance Results * Tacrolimus level (03/08/2025 1:18 PM EDT) Only the most recent of2 resultswithin the time period is included. Tacrolimus Lvl 8.3 5.0 - 20.0 ng/mL [facility] Comment: Target steady state trough concentration [...] 0.5 ng/mL Performed by LC-MS/MS technology. Blood Venous blood / Unknown 03/08/2025 1:18 PM EDT 03/08/2025 Narrative [facility] - 03/11/2025 1:05 AM EDT Test(s) [id number]-[id number] (FK506), Blood was developed and its performance characteristics determined by [employer]. It has not been cleared or approved by the Food and Drug Administration. Rory Gudino MD LAB BLOOD ORDERABLES Final Re sult Performing Organization Address City/[facility]/ZIP Co de Phone Number [facility] [address] [place] [address] * Microscopic Examination (02/08/2025 12:53 PM EDT) WBC, Urine 0-5 0 - 5 /hpf [facility] RBC, Urine None seen 0 - 2 /hpf [facility] Squamous Epithelial, Urine None seen 0 - 10 /hpf [facility] Casts None seen None seen /lpf [facility] Bacteria, Urine None seen None seen/Few [facility] 02/08/2025 12:5 3 PM EDT 02/08/2025 Rory Gudino MD LAB MICROBIOLOGY - GENERAL OR DERABLES Final Result Performing Organization Address City/[facility]/ZIP Co de Phone Number [facility] [address] [place] [address] * Protein, Total, Random Urine w/Creatinine (Protein/Creat Ratio) (02/08/2025 12:53 PM EDT) Creatinine, Ur 70.5 Not Estab. mg/dL [facility] Protein, Ur 5.8 Not Estab. mg/dL [facility] Urine Protein/Creatin ine Ratio 82 0 - 200 mg/g creat [facility] Urine specimen (specimen) Urine specimen obtained by clean catch procedure / Unknown 02/08/2025 12:53 PM EDT 02/08/2025 Rory Gudino MD LAB URINE ORDERABLES Final Re sult Performing Organization Address [facility] Co de Phone Number [facility] [address] [place] [address] * Urine Albumin / Creatinine Ratio (02/08/2025 12:53 PM EDT) Albumin, Urine 5.7 Not Estab. ug/mL [facility] Albumin/Creatin ine Ratio 8 0 - 29 mg/g creat [facility] Comment: Normal: 0 - 29 Moderately increased: 30 - 300 Severely increased: >300 Urine specimen (specimen) Urine specimen obtained by clean catch procedure / Unknown 02/08/2025 12:53 PM EDT 02/08/2025 Rory Gudino MD LAB URINE ORDERABLES Final Re sult Performing Organization Address [facility] Co de Phone Number [facility] [address] [place] [address] * (ABNORMAL) Urinalysis with microscopic (02/08/2025 12:53 PM EDT) Specific [place], Urine 1.023 1.005 - 1.030 [facility] pH Urine 5.5 5.0 - 7.5 [facility] [phone] Color, Urine Yellow Yellow [facility] Appearance Urine Clear Clear [facility] WBC Esterase Urine Negative Negative [facility] Protein, Ur Negative Negative/Tra ce [facility] Glucose, Ur 3+(A) Negative [facility] Ketones, Urine Negative Negative [facility] Blood Urine Negative Negative [facility] [phone] Bilirubin Urine Negative Negative [facility] [phone] Urobilinogen Urine 0.2 0.2 - 1.0 mg/dL [facility] [phone] Nitrite, Urine Negative Negative [facility] [phone] Microscopic Examination Comment [facility] Comment:Microscopic follows if indicated. Other Microsc. Observations See below: [facility] Comment:Microscopic was kena cated and was performed. Urine specimen (specimen) Urine specimen obtained by clean catch procedure / Unknown 02/08/2025 12:53 PM EDT 02/08/2025 us Rory Gudino MD LAB URINE ORDERABLES Final Re sult [facility] [address] [place] [address] * (ABNORMAL) Renal Function Panel (02/08/2025 12:53 PM EDT) Glucose 135(H) 70 - 99 mg/dL [facility] BUN 26 8 - 27 mg/dL [facility] Creatinine 1.06(H) 0.57 - 1.00 mg/dL [facility] eGFR CKD-EPI CR 2020 57(L) >59 mL/min/1.7 3 [facility] BUN/Creatinine Ratio 25 12 - 28 [facility] Sodium 141 134 - 144 mmol/L [facility] Potassium 4.7 3.5 - 5.2 mmol/L [facility] Chloride 105 96 - 106 mmol/L [facility] Bicarbonate (CO2) 20 20 - 29 mmol/L [facility] Calcium 10.3 8.7 - 10.3 mg/dL [facility] Albumin 4.4 3.9 - 4.9 g/dL [facility] Phosphorus 3.6 3.0 - 4.3 mg/dL [facility] Blood specimen (specimen) Venous blood / Unknown 02/08/2025 12:53 PM EDT 02/08/2025 Rory Gudino MD LAB BLOOD ORDERABLES Final Re sult [facility] [address] [place] [address] * (ABNORMAL) Hemoglobin A1c (09/22/2022 8:32 AM EDT) [facility] Signature Hemoglobin A1C 8.0(H) (4.0-5.6) % [facility] Comment: MONITORING: In known diabetic patients, hemoglobin A1c targets should be discussed with health care provider. DIAGNOSTIC USE: The [place] Diabetes Association (ADA) and the World Health [...] Supplement 1 Testing performed or reported by [facility], a Service of [facility], [address] [place] [address] Saad Saucedo MD, Non Cdl Driver [facility]# [id number] Blood specimen (specimen) Venous blood / Unknown 09/22/2022 8:32 AM EDT 09/22/2022 8:35 AM EDT Rina Evans MD LAB BLOOD ORDERABLES Final Resu lt [facility] from Last 3 Months or Most Recently Relevant to Health Maintenance Insurance [address] [place] [address] Care Teams Assistant Chief Engineer Relationship Specialty Start Date End Date Armando Nobles MD [address], [facility] [address] [place] [address] PCP - General Internal Medicine 11/19/21
--- OUTSIDE RECORDS SUMMARY | 2025-04-23 11:20 | XMS_ITS | Encounter Summary ---
Author Organization [facility] Address [address] [facility] [address] [place] [address] Phone Care Team Providers Care Commercial Litigation Associate Name Role Phone Armando Nobles MD Primary Care Provider + Reason for Visit * Reason Comments Med Refill Encounter Details Date Type Department Care Team ([facility] Contact Info) Description 12/18/2022 Refill [facility] [address] [facility] [address] [place] [address] Michael Cadet MD Type 2 [...] 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 [address] [facility] [address] [place] [phone] Rory Gudino MD [address] [facility] [address] [place] [address] documented as of this encounter Visit Diagnoses Diagnosis Type 2 diabetes mellitus with other diabetic kidney complication (HCC) documented in this encounter Care Teams Commercial Litigation Associate Relationship Specialty Start Date End Date Armando Nobles MD [address] [place] [address] PCP - General Internal Medicine 11/19/21 documented as of this encounter
--- OUTSIDE RECORDS SUMMARY | 2025-04-23 11:20 | XMS_ITS | Encounter Summary ---
Author Organization [facility] Address [address] [facility] [address] [place] [address] Phone Care Team Providers Care Central Sterile Tech Name Role Phone Armando Nobles MD Primary Care Provider + Reason for Visit * Reason Comments Med Refill Encounter Details Date Type Department Care Team (Late Contact Info) Description 07/13/2023 Refill [facility] [address] 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 [address] [facility] [address] [place] [phone] Rory Gudino MD [address] [facility] [address] [place] [address] documented as of this encounter Visit Diagnoses Diagnosis Hypertension- Primary documented in this encounter Care Teams Central Sterile Tech Relationship Specialty Start Date End Date Armando Nobles MD [address] [place] [address] PCP - General Internal Medicine 11/19/21 documented as of this encounter
--- OUTSIDE RECORDS SUMMARY | 2025-04-23 11:20 | XMS_ITS | Clinical Summary ---
Author Organization [facility] Address [address] [place] [address] Care Team Providers Care Briar Cutter Name Role Phone Pcp, No Primary Care [...] (Females,Ages 65 and older) 2021 Influenza Vaccine 02/08/2025 03/17/2020, , 04/17/2013, Additional history exists COVID-19 Vaccine ( - season) 2025 Hepatitis B Vaccines Aged Out No long er eligible based on patient's age to complete this topic Insurance [employer] [place] OUT OF STATE - HMO Care Teams Briar Cutter Relationship Specialty Start Date End Date Pcp, No PCP - General General Medicine 10/16/24
--- OUTSIDE RECORDS SUMMARY | 2025-04-23 11:20 | XMS_ITS | Patient Health Record ---
Author Organization [facility] Address [address] [place] [address] Care Team Providers Care Patient Consumer Marketer Name Role Phone APURVA WISEMAN Primary Care [...] GM As directed Orally Over the specified time.; Duration: 1 day(s) 05/26/2016 Active Calcitriol 0.25 MCG [...] Problem Status W/U Status Risk Notes Problem Colon cancer screening (515865036) Colon cancer screening (Z12.11) Active confirmed Problem Diverticular disease of colon (859755593) Diverticulosis of large intestine without hemorrhage (K57.30) Active confirmed Plan Of Treatment Future Test Test Name Order Date COLONOSCOPY 05/26/2016 Insurance Providers Payer Name Payer Address Payer Phone Subscriber Number Group Number Insured Name Patient Relationship to Insured Coverage Start Date Coverage End Date MEDICARE OF [place] [address] [place] [id number] ROLANDA LUCIO Self - patient is the insured [employer] [address] RAHAT GONZALEZ [phone] [id number] ROLANDA LUCIO Self - patient is the insured Medical (General) History Medical History History ICD Code colonoscopy 08-29-2009, tubular adenoma x 2, followup 3 years chronic kidney disease, peritoneal dialy sis elevated blood pressure elevated cholesterol hyperparathyroidism migraine headaches Denies OR,DM,CVA,Lung disease
--- OUTSIDE RECORDS SUMMARY | 2025-04-23 11:20 | XMS_ITS | Encounter Summary ---
Author Organization [facility] Address [address] [facility] [address] [place] [address] Phone Care Team Providers Care Crime Scene Analyst Name Role Phone Armando Nobles MD Primary Care Provider + Reason for Visit * Reason Comments Med Refill Encounter Details Date Type Department Care Team ([facility] Contact Info) Description 10/24/2023 Refill [facility] [address] [facility] [address] [place] [address] Ander Rivera MD [address] [place] [phone] Social History Tobacco Use Types Packs/Day Years [...] 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 [address] [facility] [address] [place] [address] Rory Gudino MD [address] [facility] [address] [place] [address] documented as of this encounter Visit Diagnoses Not on filedocumented in this encounter Care Teams Crime Scene Analyst Relationship Specialty Start Date End Date Armando Nobles MD [address], [facility] [address] [place] [address] PCP - General Internal Medicine 11/19/21 documented as of this encounter
== END 2025-04-23 10:36 | disposition home or self-care (01) ==
LOC: HO.HGS 09:55
PROVIDERS: PCP Internal Medicine; Visit Provider Surgery
DX: D18.01 Hemangioma of skin and subcutaneous tissue (principal)
CPT/HCPCS: 11400

== ENCOUNTER 2025-04-23 09:54 | Outpatient (REF) | payer BC, SELFPAY | END 2025-04-23 09:55 | disposition home or self-care (01) | LOC: HO.LNP 09:54 | PROVIDERS: PCP Internal Medicine; Visit Provider Surgery | DX: D18.01 Hemangioma of skin and subcutaneous tissue (principal) | CPT/HCPCS: 11400; 88304 ==

== ENCOUNTER 2025-04-30 11:06 | Outpatient (AMB) | payer BC, SELFPAY ==
--- NOTE | 2025-04-30 11:08 | A.OFFVIS_ITS ---
Vital Signs 3 04/30/25 11:14 Height 5 ft 2 in Weight 127 lb BMI 23.2 BP 123/79 Blood Pressure Location Rt brachial Position Sitting Pulse 95 Intake Visit Reasons: post exc abdomen lesion (off proc) Intake Note: Patient here s/p WLE of hemangioma on left upper quadrant on 04-23-2025. Patient c/o: no concerns. Reports incision healing well. Denies pain, oozing. Manager Enrollment Required: No Accompanied by: Self / Same As Patient Allergies oxycodone (From PERCOCET) Allergy (Unknown, Verified 04/30/25 11:14) NAUSEA & VOMITING semaglutide (From Rybelsus) Adverse Reaction (Verified 04/30/25 11:14) Vomiting HPI HPI post exc abdomen lesion (off proc): Details: Doing well, states she is here for suture removal. Denies pain, denies drainage, fevers, redness around the excision site. No other concerns [facility] Medical History (Updated 04/30/25 @ 11:19 by Alfredito Olvera PA-C) Osteopenia History of mammogram (~08/07/24) Osteoarthritis of left hip Dyslipidemia Diabetes type 2, uncontrolled Hypertension Hyperlipidemia Stage 4 chronic kidney disease Lobular carcinoma in situ of left breast Surgical History (Updated 04/30/25 @ 08:49 by CAYLA Pugh) Hx of surgical procedure (04/23/25) Hx of colonoscopy (~11/17/23) History of kidney transplant (06/09/18) History of lumpectomy of left breast History of left breast biopsy (04/2018) History of biopsy History of Mohs surgery for squamous cell carcinoma of skin History of endometrial ablation History of umbilical hernia repair Family History Mother History of melanoma History of stomach cancer History of pulmonary embolism Social History Household Members: Significant Other Housing: Apartment Alcohol intake: never Patient Tobacco Use Status: Never used Tobacco e-Cigarette/Vaping Use: Never Used Second Hand Smoke Exposure: No service: No Current occupational status: employed and retired 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 Excision site, well healed [address]. No surrounding erythema or fluctuance. Neuro General: patient oriented x3 Assessment & Plan Assessment & Plan (1) Vallecillo angioma: Comment: Abdominal wall 4 mm, s/p excision (04/23/2025 Dr. Lyn) Code(s): D18.01 - Hemangioma of skin and subcutaneous tissue Category: Medical Plan 69-year-old female s/p excision of a hemangioma on the left upper quadrant of the abdomen return to the office for suture removal. Overall doing well. Denies pain, bleeding, drainage. On exam the excision site appears to be healing well, [address], no concern for infection. To sutures were removed in office without complication. We discussed pathology results showing capillary hemangioma, no malignancy. She can follow up as needed with any concerns in the future Coding Level of Care Code Est Pt Level 3 (91788) Diagnoses Vallecillo angioma D18.01
[2025-04-30 11:14] VITALS: BP 123/79; PULSE 95; BMI 23.2
== END 2025-04-30 11:16 | disposition home or self-care (01) ==
LOC: HO.HGS 11:07
PROVIDERS: PCP Internal Medicine
DX: D18.01 Hemangioma of skin and subcutaneous tissue (principal)
CPT/HCPCS: 99024

== ENCOUNTER 2025-06-27 10:37 | Emergency (ER) | payer BC, SELFPAY ==
[2025-06-27] VITALS (7 sets, daily range): BP systolic 116–142; BP diastolic 70–78; PULSE 104–116; RESP 16–28; TEMP 36.8–36.9; O2SAT 96–99; BMI 23.0
--- NOTE | ~2025-06-27 | US_ITS ---
EXAMINATION: US LOWER EXTREMITY VEINS LIMITED RIGHT HISTORY: Pain COMPARISON: There are no prior studies available for comparison. TECHNIQUE: Duplex and color Doppler sonographic examination of the deep venous system of the right lower extremity was performed. FINDINGS: The common femoral, superficial femoral, and popliteal veins are patent demonstrating normal compressibility, spontaneous flow, and augmentation. There is a normal color and spectral Doppler waveform appearance of the visualized deep venous system above the knee. The posterior tibial and peroneal veins are patent. US/US venous duplex LE RT IMPRESSION: No evidence of acute DVT in the right lower extremity. Electronically signed by: Fox Tanner MD 06/27/2025 02:07 PM [facility]
--- NOTE | ~2025-06-27 | XR_ITS ---
EXAMINATION: XR HIP, RIGHT CLINICAL INFORMATION: Right hip pain COMPARISON: X-ray left hip 05/26/2023 TECHNIQUE: Two views of the right hip. Pelvis 1 view FINDINGS: Right hip: Alignment is anatomic. There is lucency projected over the femoral neck, more prominently seen on the oblique view This may be related to overlapping densities. No definite cortical malalignment is seen. Hip joint space is maintained. Lateral acetabular bony hypertrophy. Pelvis: [Left hip joint space is maintained. Left lateral acetabular bony hypertrophy. No acute left hip fracture or dislocation. SI joints and symphysis pubis are intact. No acute pelvic fracture is otherwise identified. There are spondylosis in the visualized lower lumbar spine. XR/XR hip RT w PEL1V IMPRESSION: Right hip: Lucency projected over the femoral neck on one of the views. This may be related to overlapping densities. Clinically correlate. If there is clinical concern for fracture, consider CT scan. Mild degenerative changes in bilateral hips. Electronically signed by: vEer Funez MD 06/27/2025 01:48 PM [facility]
--- NOTE | ~2025-06-27 | XR_ITS ---
EXAMINATION: XR LUMBAR SPINE 2-3 VIEWS HISTORY: Right hip pain COMPARISON: There are no prior studies for comparison. FINDINGS: AP, lateral, and coned down views of the lumbar spine are submitted. Osseous mineralization is normal. Five nonrib-bearing lumbar vertebral bodies are identified, maintaining normal height and alignment without evidence of fracture or spondylolisthesis. There is severe degenerative disc disease at the L4-5 level with disc space narrowing and osteophyte formation. There is mild disc space narrowing at L3-4. The posterior elements are intact. The visualized paraspinal soft tissues are unremarkable. XR/XR lumbar spine 2-3V IMPRESSION: Degenerative disc disease of the lumbar spine as described. Electronically signed by: Fox Tanner MD 06/27/2025 01:42 PM [facility]
--- NOTE | ~2025-06-27 | CT_ITS ---
EXAMINATION: CT HIP WITHOUT CONTRAST, RIGHT CLINICAL INFORMATION: Possibly abnormal x-ray right hip, question fracture. COMPARISON: Hip radiograph earlier same day. No prior CT. TECHNIQUE: Multidetector volumetric imaging was obtained through the right hip without contrast material. Multiplanar reformatted images were submitted in coronal and sagittal planes. This CT examination was performed using dose optimization techniques as appropriate, variously including the following: *Automated exposure control *Adjustment of mA and/or kV according to patient size (this includes techniques or standardized protocols for targeted exams where dose is matched to indication/reason for exam; i.e. extremities or head) *Use of iterative reconstruction technique FINDINGS: There is no definite fracture identified. The hip is intact. The proximal femur is intact. The iliac bone, pubic rami, and position moderate intact. The acetabulum is intact. There is no bone lesion. The imaged right SI joint is intact. The imaged sacrum is intact without definitive sacral insufficiency fracture. Mild degenerative changes of the right hip joint are present with a superolateral acetabular osteophyte. Minimal joint space narrowing present. Soft tissues demonstrate no evidence of a hematoma in the hip girdle musculature. No evidence of a hematoma or abnormal fluid collection. No gross joint effusion of the hip. There is a partially imaged right pelvic transplanted kidney. Minimal stranding surrounding the inferior pole, and there are surgical clips abutting the hilum and in the inguinal region. The urinary bladder is distended but intact. The uterus is normal. There is no right adnexal abnormality. The imaged bowel structures are normal. CT/CT hip RT wo IV con IMPRESSION: 1. There is no evidence of fracture or dislocation of the imaged right hip or pelvis. There are mild degenerative changes of the right hip joint. 2. No hematoma or abnormal fluid collection present. 3. There is a partially imaged right transplanted kidney. Electronically signed by: German Dorsey MD 06/27/2025 04:43 PM EST
--- NOTE | 2025-06-27 11:09 | ED_ITS ---
HPI - General Adult General Chief complaint: General Medical Stated complaint: R leg pain, vomiting Time Seen by Provider: 06/27/25 13:04 Source: patient Mode of arrival: ambulatory Limitations: no limitations History of Present Illness ED Provider: DR. Higuera HPI narrative: A 70-year-old female PMHx renal transplant on tacrolimus mycophenolate, hypertension, hyperlipidemia, DM, who walked into the emergency department for evaluation of right hip pain that radiates down to the right thigh and right knee that is started 5 days ago at home, patient declined any strenuous activity, no fall, no injury, no heavy lifting, no back pain, patient was seen and evaluated at [facility] for her symptoms had a CT abdomen and pelvis and blood workup and patient was discharged on Tylenol and lidocaine patch returned today for persistent of the pain without improvement, patient had nausea and vomiting x2 this morning with no abdominal pain, no diarrhea, no fever, no chills. Normal bowel movement, passing flatus normally. No stool or urine incontinence. No numbness, no weakness. Related Data Home Medications ?Medication ?Instructions ?Recorded ?Confirmed magnesium oxide 400 mg (241.3 mg 400 mg PO DAILY 06/2503/08/25 magnesium) tablet metoprolol succinate 25 mg mg PO 06/25/20 03/08/25 tablet,extended release 24 hr simvastatin 20 mg tablet 20 mg PO BEDTIME 06/25/20 mycophenolate sodium 180 mg 360 mg PO BID 10/15/20 tablet,delayed release blood sugar diagnostic (FreeStyle 05/18/21 03/08/25 Lite Strips) lancets 28 gauge (FreeStyle 05/18/21 03/08/25 Lancets) amlodipine 10 mg tablet 10 mg PO DAILY 07/27/2302/09 insulin glargine 100 unit/mL (3 unit subcut 07/27/23 0 03/08/25 mL) subcutaneous pen (Lantus Solostar U-100 Insulin) metformin 500 mg tablet,extended 1,000 mg PO BID 07/2703/08/25 release 24 hr valsartan 80 mg tablet 80 mg PO DAILY 07/27/2302/09 cholecalciferol (vitamin D3) 50 50 mcg PO DAILY 07/30/ 24 08/29/25 mcg (2,000 unit) capsule tacrolimus 1 mg tablet,extended 2 mg PO DAILY 02/07/24 03/08/25 release 24 hr (Envarsus XR) tirzepatide 10 mg/0.5 mL 10 mg subcut QWEEK 08/16/24 03/08/25 subcutaneous pen injector (iNlounandry) Previous Rx's ?Medication ?Instructions ?Recorded lancets 28 gauge (FreeStyle #100 ea 05/19/21 Lancets) pen needle, diabetic 32 gauge x #100 ea 01/29/22 (BD Ultra-Fine Gill Pen Needle) dapagliflozin propanediol 10 mg 10 mg PO DAILY 90 days #90 tabs 05/06/22 tablet (Farxiga) calcium carbonate 1,250 mg (2.5 x 500 mg calci um 03/20/25 (1,250 mg)) PO DAILY 90 days #225 tabs ondansetron 4 mg disintegrating 4 mg PO Q8H PRN nausea and 06/27/25 tablet vomiting #5 tabs oxycodone 5 mg tablet 5 mg PO BID PRN pain #10 tab s 06/27/25 Allergies Allergy/AdvReac Type Severity Reaction Status Date / Time oxycodone (From PERCOCET) Allergy Unknown NAUSEA & Verified 06/27/25 11:12 VOMITING semaglutide (From Rybelsus) AdvReac Vomiting Verified 06/27/25 11:12 Review of Systems 2 Review of Systems: All other systems are reviewed and are negative Constitutional: Reports as per HPI and Reports no additional constitutional complaints Eyes: Reports as per HPI and Reports no additional eye complaints Reports system reviewed and no additional complaints, except as documented Cardiovascular: Reports as per HPI and Reports no additional cardiovascular complaints Respiratory: Reports as per HPI and Reports no additional respiratory complaints Gastrointestinal: Reports as per HPI and Reports no additional gastrointestinal complaints Genitourinary: Reports no additional female genitourinary complaints Musculoskeletal: Reports no additional musculoskeletal complaints Skin/Breast: Reports system reviewed and no additional complaints, except as docu Psychiatric: Reports no additional psychiatric complaints Endocrine: Reports no additional endocrine complaints Hematologic/Lymphatic: Reports no additional hematologic/lymphatic complaints Allergic/Immunologic: Reports no additional allergic/immunologic complaints Reports system reviewed and no additional complaints, except as documented and Reports Abnormal speech present [facility] Past Medical History Medical History Osteopenia History of mammogram (~08/07/24) Osteoarthritis of left hip Dyslipidemia Diabetes type 2, uncontrolled Hypertension Hyperlipidemia Stage 4 chronic kidney disease Lobular carcinoma in situ of left breast Surgical History Hx of surgical procedure (04/23/25) Hx of colonoscopy (~11/17/23) History of kidney transplant (06/09/18) History of lumpectomy of left breast History of left breast biopsy (04/2018) History of biopsy History of Mohs surgery for squamous cell carcinoma of skin History of endometrial ablation History of umbilical hernia repair Family History Family History Mother History of melanoma History of stomach cancer History of pulmonary embolism Social History Social History Household Members: Significant Other Housing: Apartment Alcohol intake: never Patient Tobacco Use Status: Never used Tobacco Smoked in Last 30 Days: No e-Cigarette/Vaping Use: Never Used Second Hand Smoke Exposure: No Use of substances other than those prescribed or required for medical reasons: No Advance Directives: No Advance Directives Information Provided: Yes service: No Current occupational status: employed and retired 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 Cognitive needs: No Hearing needs: No Vision needs: Yes (glasses) Physical Exam ED Vital Signs: Vital Signs - 24 hr 06/27/25 11:08 06/27/25 12:51 06/27/25 13:43 Temperature 98.2 F 98.2 F Pulse Rate 116 H 115 H Respiratory Rate 16 28 H 20 Blood Pressure 135/77 142/72 H Pulse Oximetry 97 99 Oxygen Delivery Method Room Air Room Air 06/27/25 14:11 06/27/25 14:25 06/27/25 15:01 Temperature 98.3 F 98.4 F Pulse Rate 108 H 105 H 104 H Respiratory Rate 21 H 18 16 Blood Pressure 116/70 122/78 Pulse Oximetry 98 96 97 Oxygen Delivery Method Room Air Room Air Room Air BMI result Body Mass Index 23.0 Vital signs have been reviewed and appear to be correct. Blood pressure elevated. Heart rate elevated, Respiratory rate elevated, Temperature normal. Oxygen saturation normal. Appearance: Alert. Oriented X3. No acute distress. Head: Normal external exam. Normocephalic. Atraumatic. No Castro signs noted. No raccoon eyes noted Eyes: PERRLA. EOMI. Conjunctiva and sclera normal. Eyelids normal. ENT: TM's Normal. Pharynx normal. Uvula midline. Moist mucous membranes. No trismus noted. No drooling noted. No muffled voice noted. Neck: Normal inspection. Neck supple. FROM. No adenopathy. Thyroid Normal. No meningeal signs. No neck mass noted. CVS: Normal heart rate and rhythm. Heart sound normal. No murmurs noted. Pulses normal throughout. Respiratory: No respiratory distress. Painless inspiration. Breath sounds normal. No wheezes/rales/rhonchi noted. Chest nontender. No accessory muscle usage noted or decreased air movement noted. Abdomen: Soft and nontender. Bowel sounds normal in all 4 quadrants. No distention noted. No organomegaly noted. No visible injury noted. Back: No CVA tenderness. Full range of motion noted. Skin: Skin warm and dry. Normal skin color. Normal skin turgor. No rashes/lesions/lacerations noted. Extremities: No lower extremity edema. Extremities exhibit normal range of motion. Extremities nontender. Neuro: Mental status: Normal attention, orientation, memory, and affect. Cranial nerves: Pupils are equal, round and reactive to light, EOMI, visual bruce are fall, face is symmetric, facial sensations are normal. Motor examination normal muscle tone, strength to 4 extremities. DTR are +2, planter's are flexor. Sensory exam; normal coordination, no ataxia, gait stable. Cerebellar exam: Mwqrsw-vs-drut and bilv-gt-hoip is normal. Extrapyramidal system: No tremors, no rigidity with normal facial expressions. Pronator drift not present Course Course Course Narrative: This is an RME: Additional HPI, ROS, PE not included below will be deferred to primary provider. RME assessment and note performed by: Neeru Jimenez PA-C This is a 64-evwa-iwi-female, with a hx of kidney transplant on tacrolimus mycophenolate, hypertension, hyperlipidemia, DM, who presents to the emergency department with concerns of right leg pain. Patient also endorsing vomiting which started this morning. She has no abdominal pain. Leg is well perfused. She was seen at [facility] with no findings. She has been taking muscle relaxants and Tylenol without any relief. Pain starts in the right hip and radiates down into the right foot. Plan: Labs, EKG, further ER eval needed Reevaluation(s) Reevaluation #1: 70-year-old female came in for evaluation of right hip/thigh pain physical exam is consistent with lumbar radiculopathy. CT of the right hip shows no acute fracture. Patient sensitive to most of medication and get nausea and vomiting easily will consider Zofran prescription to discharge with. Patient was instructed to refrain from strenuous activity, will prescribe oxycodone to be used per cautiously to control her pain. Time: 14:59 Medications Administered Generic Name Dose Route Start Last Admin Trade Name Freq PRN Reason Stop Dose Admin Acetaminophen 1,000 mg in 100 mls @ 400 mls/hr 06/27/25 13:15 06/27/25 13:59 Ofirmev IV 06/28/25 07:29 Infused Q6H YOSELIN Infusion Discontinued Medications Generic Name Dose Route Start Last Admin Trade Name Freq PRN Reason Stop Dose Admin Hydromorphone HCl 1 mg 06/27/25 13:11 06/27/25 13:43 Hydromorphone Hcl 1 Mg/Ml Syringe IVPUSH 06/27/25 13:12 1 mg ONCE ONE Administration Protocol Ondansetron HCl 4 mg 06/27/25 13:42 06/27/25 13:46 Ondansetron Hcl 4 Mg/2 Ml Vial IVPUSH 06/27/25 13:43 4 mg ONCE ONE Administration Medical Decision Making Differential Diagnosis Differential Diagnoses: The differential diagnosis associated with the presentation includes (Right hip arthritis, right hip fracture, DVT of right lower extremity, lumbar radiculopathy, rhabdomyolysis.) Admission/Observation Consideration of admission/observation: Escalation of care including admission/observation considered Lab Data MDM Lab Attestation statement: I reviewed the patient's lab results. 06/27/25 11:41 06/27/25 11:41 Labs: Lab Results 06/27/25 Range/Units 11:41 WBC 4.8 (4.8-10.8) X10*3/uL RBC 4.72 (4.20-5.50) X10*6/uL Hgb 13.8 (12.0-16.0) g/dl Hct 42.3 (37.0-47.0) % MCV 89.6 (80.0-98.0) fL MCH 29.2 (27.0-33.0) pg MCHC 32.6 (31.0-35.0) g/dl RDW 12.8 (11.0-16.0) % Plt Count 160 (160-400) X10*3/uL MPV 9.4 (9.4-12.3) fL Immature Gran % (Auto) 1.4 H (0.0-0.4) % Neut % (Auto) 75.8 H (45-73) % Lymph % (Auto) 16.4 L (20-40) % [place] % (Auto) 6.0 (2-11) % Eos % (Auto) 0.2 (0-4) % Baso % (Auto) 0.2 (0-2) % Lymph # (Auto) 0.8 L (1.2-4.9) X10*3/uL [place] # (Auto) 0.3 (0.1-1.2) X10*3/uL Eos # (Auto) 0.0 (0.0-0.4) X10*3/uL Baso # (Auto) 0.0 (0.0-0.2) X10*3/uL Abs Immat Gran (auto) 0.07 H (0.00-0.03) X10*3/uL Absolute Neuts (auto) 3.7 (2.0-8.3) x10*3/uL Absolute Nucleated RBC 0.000 (0.0-0.012) X10*3/uL Nucleated RBC % (auto) 0.0 (0.0-0.2) /100WBC Sodium 142 (135-145) mmol/L Potassium 4.3 (3.3-5.1) mmol/L Chloride 108 (96-108) mmol/L Carbon Dioxide 16 L (22-29) mmol/L Anion Gap 22 H (12-20) BUN 30 H (9-16) mg/dL Creatinine 1.25 (0.5-1.4) mg/dL Estim Creat Clear Calc 33.6 Estimated GFR 42 Random Glucose 192 H (60-115) mg/dL Calcium 10.6 H (8.4-10.2) mg/dL Magnesium 2.6 (1.6-2.6) mg/dL Total Bilirubin 0.5 (0.0-1.0) mg/dL Direct Bilirubin 0.2 (0.0-0.5) mg/dL AST 23 (5-31) U/L ALT 12 (0-31) U/L Alkaline Phosphatase 85 (39-117) U/L Total Creatine Kinase 95 (26-140) U/L Troponin I High Sens 6.1 (<3.5-17.0) ng/L Total Protein 7.6 (6.5-8.0) g/dL Albumin 4.9 (3.5-5.0) g/dL Lipase 13 (8-78) U/L Influenza Type A (PCR) NEGATIVE (Negative) Influenza Type B (PCR) NEGATIVE (Negative) RSV RNA Qual (PCR) NEGATIVE (Negative) SARS-CoV-2 RNA (RT-PCR) NEGATIVE (Negative) Independent Interpretation I performed an independent interpretation of an: Plain X-Ray (Lumbar spine/hip and right pelvis:Lucency projected over the femoral neck on one of the views. This may be related to overlapping densities. Clinically correlate. If there is clinical concern for fracture, consider CT scan. ) and Ultrasound (Right lower extremity: No DVT of the lower extremity.) Radiology Impression Discussion of test interpretation with radiology: I have reviewed the radiologist's reading. Discharge Plan Discharge Clinical Impression: Lumbar radiculopathy, right Patient Disposition: Home, Self-Care Instructions: Lumbar Radiculopathy (ED) Prescriptions: New oxycodone 5 mg tablet 5 mg PO BID PRN (Reason: pain) Qty: 10 0RF Rx Instructions: Partial Fill upon patient request. ondansetron 4 mg tablet,disintegrating 4 mg PO Q8H PRN (Reason: nausea and vomiting) Qty: 5 0RF No Action (DME) lancets [FreeStyle Lancets] 28 gauge misc See Rx Instructions .ROUTE .MEDSUPPLY Qty: 100 2RF Rx Instructions: daily (DME) pen needle, diabetic [BD Ultra-Fine Gill Pen Needle] 32 gauge x 5/32 needle See Rx Instructions .ROUTE .MEDSUPPLY Qty: 100 3RF Rx Instructions: As directed once daily Farxiga 10 mg tablet 10 mg PO DAILY 90 Days Qty: 90 0RF calcium carbonate 500 mg calcium (1,250 mg) tablet 1,250 mg PO DAILY 90 Days Qty: 225 1RF (DME) FreeStyle Lite Strips Strip See Rx Instructions .Route Rx Instructions: As directed once daily (DME) lancets [FreeStyle Lancets] 28 gauge misc See Rx Instructions .Route Rx Instructions: As directed once daily metoprolol succinate 25 mg tablet extended release 24 hr PO simvastatin 20 mg tablet 20 mg PO BEDTIME magnesium oxide 400 mg (241.3 mg magnesium) tablet 400 mg PO DAILY mycophenolate sodium 180 mg tablet,delayed release (DR/EC) 360 mg PO BID Mounjaro 10 mg/0.5 mL pen injector 10 mg subcut QWEEK insulin glargine [Lantus Solostar U-100 Insulin] 100 unit/mL (3 mL) insulin pen subcut metformin 500 mg tablet extended release 24 hr 1,000 mg PO BID valsartan 80 mg tablet 80 mg PO DAILY amlodipine 10 mg tablet 10 mg PO DAILY Envarsus XR 1 mg tablet extended release 24 hr 2 mg PO DAILY cholecalciferol (vitamin D3) 50 mcg (2,000 unit) capsule 50 mcg PO DAILY Referrals: Armando Nobles MD [Primary Care Provider, Internal Medicine] Print Language: Lao
--- NOTE | 2025-06-27 11:13 | ECG_ITS ---
Test Reason : right side pain Blood Pressure : */* mmHG Vent. Rate : 109 BPM Atrial Rate : 109 BPM P-R Int : 122 ms QRS Dur : 78 ms QT Int : 348 ms P-R-T Axes : 74 80 71 degrees QTcB Int : 468 ms Sinus tachycardia Nonspecific ST abnormality Abnormal ECG When compared with ECG of 03-Oct-2016 08:50, No significant change was found Referred By: Neeru Jimenez Electronically Signed By: Jared Jones
[2025-06-27 11:51] LABS: MANUAL DIFF FLAG NO
[2025-06-27 11:55] LABS: Hematocrit 42.3 % (37.0-47.0); Hemoglobin 13.8 g/dl (12.0-16.0); Imm Gran Abs Auto 0.07 X10*3/uL (0.00-0.03); Imm Gran Pct Auto 1.4 % (0.0-0.4); Lymphocytes Absolute Auto 0.8 X10*3/uL (1.2-4.9); Mean Corpuscular HGB Conc 32.6 g/dl (31.0-35.0); Mean Corpuscular Hemoglobin 29.2 pg (27.0-33.0); Mean Corpuscular Volume 89.6 fL (80.0-98.0); NRBC Abs Auto 0.000 X10*3/uL (0.0-0.012); NRBC Pct Auto 0.0 /100WBC (0.0-0.2); Platelet Count 160 X10*3/uL (160-400); Red Blood Count 4.72 X10*6/uL (4.20-5.50); White Blood Count 4.8 X10*3/uL (4.8-10.8)
[2025-06-27 12:15] LABS: Troponin-I High Sensitivity 6.1 ng/L (<3.5-17.0)
[2025-06-27 12:28] LABS: Alanine Aminotransferase 12 U/L (0-31); Albumin Level 4.9 g/dL (3.5-5.0); Alkaline Phosphatase 85 U/L (39-117); Anion Gap 22 (12-20); Aspartate Amino Transferase 23 U/L (5-31); Blood Urea Nitrogen 30 mg/dL (9-16); Calcium 10.6 mg/dL (8.4-10.2); Carbon Dioxide 16 mmol/L (22-29); Chloride 108 mmol/L (96-108); Creatinine Clr Calc Pharmacy 33.6; Estimated Glomerular Filt Rate 42; Lipase 13 U/L (8-78); Magnesium 2.6 mg/dL (1.6-2.6); Potassium 4.3 mmol/L (3.3-5.1); Sodium 142 mmol/L (135-145); Total Protein 7.6 g/dL (6.5-8.0)
[2025-06-27 12:34] LABS: Resp Syncy Virus RNA Qual PCR NEGATIVE (Negative); SARS COV2 PCR INHOUSE NEGATIVE (Negative)
--- OUTSIDE RECORDS SUMMARY | 2025-06-27 17:01 | XMS_ITS | Encounter Summary ---
Author Organization [facility] Address [address] [facility] [address] [place] [address] Phone Care Team Providers Care Machine Specialist Name Role Phone Armando Nobles MD Primary Care Provider + Reason for Visit * Reason Comments Med Refill Encounter Details Date Type Department Care Team (Late Contact Info) Description 10/24/2023 Refill [facility] [address] [facility] [address] [place] [address] Ander Rivera MD [address] [place] [address], [facility] [address] [place] [address] Social History Tobacco Use Types Packs/Day Years Used Date Smoking Tobacco: Former Cigarettes 1 Q uit: 07/11/2013 Smokeless Tobacco: Never Comments:Smoking [...] 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 [address] [facility] [address] [place] [phone] Rory Gudino MD [address] [facility] [address] [place] [address] documented as of this encounter Visit Diagnoses Not on filedocumented in this encounter Care Teams Machine Specialist Relationship Specialty Start Date End Date Armando Nobles MD [address], [facility] [address] [place] [address] PCP - General Internal Medicine 11/19/21 documented as of this encounter
--- OUTSIDE RECORDS SUMMARY | 2025-06-27 17:01 | XMS_ITS | Encounter Summary ---
Author Organization [facility] Address [address] [facility] [address] [place] [address] Phone Care Team Providers Care Manager Of Housekeeping Name Role Phone Armando Nobles MD Primary Care Provider + Reason for Visit * Reason Comments Med Refill Encounter Details Date Type Department Care Team ([facility] Contact Info) Description 12/18/2022 Refill [facility] [address] [facility] [address] [place] [address] Mcihael Cadet MD [address] [place] [address] Type 2 diabetes mellitus with other diabetic [...] 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 [address] [facility] [address] [place] [address] Rory Gudino MD [address] [facility] [address] [place] [phone] documented as of this encounter Visit Diagnoses Diagnosis Type 2 diabetes mellitus with other diabetic kidney complication (HCC) documented in this encounter Care Teams Manager Of Housekeeping Relationship Specialty Start Date End Date Armando Nobles MD [address], [facility] [address] [place] [address] PCP - General Internal Medicine 11/19/21 documented as of this encounter
--- OUTSIDE RECORDS SUMMARY | 2025-06-27 17:01 | XMS_ITS | Clinical Summary ---
Author Organization [facility] Address [address] [place] [id number] Care Team Providers Care Television Audio Engineer Name Role Phone Pcp, No Primary Care [...] 50+ (1 of 1 - PCV) 2006 RSV Vaccine 50 years and older and Patients (1 - Risk 50-74 years 1-dose series) 2006 Zoster (Shingles) Vaccine (1 of 2) 2006 DXA Bone Density (Females,Ages 65 and older) 2021 Influenza Vaccine 02/08/2025 03/17/2020, , 04/17/2013, Additional history exists COVID-19 Vaccine ( - 2024- season) 2025 Hepatitis B Vaccines Aged Out No long er eligible based on patient's age to complete this topic Insurance [place] OUT OF STATE - HMO Care Teams Television Audio Engineer Relationship Specialty Start Date End Date Pcp, No PCP - General General Medicine 10/16/24
--- OUTSIDE RECORDS SUMMARY | 2025-06-27 17:01 | XMS_ITS | Clinical Summary ---
Author Organization [facility] Address [address] [address] Phone Care Team Providers Care Pediatric Genetic Counselor Name Role Phone Armando Nobles MD Primary Care Provider + Allergies No known active allergies Medications FREESTYLE LITE test strip 08/27/19 21 Active Lancets (freestyle) lancets 09/19/19 21 Active calcitriol (ROCALTROL) 0.5 MCG capsule Take 0.5 mcg by mouth 1 (one) time each day Active Lantus SoloStar 100 UNIT/ML injection if needed 12/12/19 22 Active metFORMIN (GLUCOPHAGE) 500 MG tablet TAKE ONE TABLET BY MOUTH TWO TIMES A DAY WITH MEALS 60 tablet 11 04/11/20 23 Active sodium bicarbonate 650 MG tablet TAKE 1 TABLET BY MOUTH IN THE MORNING, AT NOON, 1 TABLET IN THE EVENING, AND 1 TABLET BEFORE BEDTIME 360 tablet 01/20/20 24 Active mycophenolate (MYFORTIC) 180 MG EC tablet TAKE 3 TABLET BY MOUTH EVERY MORNING AND EVERY EVENING 180 tablet 07/23/19 25 Active Envarsus XR 1 MG tablet sustained-releas e 24 hour TAKE 2 TABLETS BY MOUTH ONCE DAILY 60 tablet 07/23/19 25 Active Farxiga 10 MG tabletIndication s:Type 2 diabetes mellitus with other diabetic kidney complication (HCC),Kidney replaced by transplant TAKE ONE TABLET BY MOUTH ONCE DAILY 30 tablet 10 08/20/19 25 Active valsartan (DIOVAN) 80 MG tablet TAKE 1 TABLET (80 MG TOTAL) BY MOUTH 1 (ONE) TIME EACH DAY 30 tablet 10 09/15/19 25 026 Active simvastatin (ZOCOR) 20 MG tablet Take 1 tablet (20 mg total) by mouth at bed time 30 tablet 11 09/26/19 25 Active cholecalciferol (VITAMIN D-3) 50 MCG (1999) capsuleIndicatio ns:Long-term drug therapy TAKE ONE CAPSULE BY MOUTH ONCE DAILY 30 capsule 10 12/22/19 25 Active metoprolol succinate XL (TOPROL XL) 25 MG 24 hr tabletIndication s:Hypertension TAKE ONE-HALF TABLET BY MOUTH ONCE DAILY 15 tablet 11 12/22/19 25 Active metFORMIN XR (GLUCOPHAGE-XR) 500 MG 24 hr tablet TAKE TWO TABLETS BY MOUTH TWO TIMES A DAY 360 tablet 4 12/27/19 25 Active amLODIPine (NORVASC) 10 MG tabletIndication s:Hypertension TAKE ONE TABLET BY MOUTH ONCE DAILY 90 tablet 3 06/10/20 25 Active amLODIPine (NORVASC) 10 MG tabletIndication s:Hypertension Take 1 tablet (10 mg total) by mouth 1 (one) time each day 90 tablet 3 06/27/20 24 025 Discontinued magnesium oxide (MAG-OX) 400 MG tablet TAKE 1 TABLET (400 MG TOTAL) BY MOUTH IN THE MORNING AND 1 TABLET (400 MG TOTAL) IN THE EVENING. 60 tablet 2 03/18/20 25 025 Active Problems Problem Noted Date Diagnosed Date Immunosuppression 11/24/2022 Essential (primary) hypertension 11/24/2022 Type 2 diabetes mellitus wit h other diabetic kidney complication 08/12/2021 Kidney transplant status 08/19/2020 History of renal transplant 06/09/2018 Overview (05/19/2022): [facility] Atypical ductal hyperplasia of breast 05/25/2018 Overview (05/19/2022): [facility] Anemia in chronic kidney disease 05/23/2013 [...] 08/19/2020 07/21/2022 End stage renal disease 06/06/2013 06/3 Hypertensive renal disease with renal failure 05/23/20 13 01/07/2022 Chronic glomerulonephritis 04/19/2006 0 11/02/2021 Encounters Date Type Department Care Team Description 06/10/2025 Refill [facility] 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 [address] [facility] [address] [place] [address] Rory Gudino MD [address] [address] Health Maintenance Due Date Last [...] Procedure Name Priority Date/Time Associated Diagnosis Comments HEMOGLOBIN A1C Routine 09/22/2022 8:32 AM EDT History of renal transplant Type 2 diabetes mellitus with other diabetic kidney complication (HCC) Anemia in chronic kidney disease from Last 3 Months or Most Recently Relevant to Health Maintenance Results * (ABNORMAL) Hemoglobin A1c (09/22/2022 8:32 AM EDT) Hemoglobin A1C 8.0(H) (4.0-5.6) % [facility] Comment: MONITORING: In known diabetic patients, hemoglobin A1c targets should be discussed with health care provider. DIAGNOSTIC USE: The [place] Diabetes [employer] (ADA) and the World Health [...] Supplement 1 Testing performed or reported by [facility], a Service of [facility], [address] [place] [address] Saad Saucedo MD, Brick Setter Operator [facility]# [id number] Blood specimen (specimen) Venous blood / Unknown 09/22/2022 8:32 AM EDT 09/22/2022 8:35 AM EDT us Rina Evans MD LAB BLOOD ORDERABLES Final Resu lt [facility] from Last 3 Months or Most Recently Relevant to Health Maintenance [place] [place] [address] [facility] Care Teams Pediatric Genetic Counselor Relationship Specialty Start Date End Date Armando Nobles MD [address] [address] PCP - General Internal Medicine 11/19/21
--- OUTSIDE RECORDS SUMMARY | 2025-06-27 17:01 | XMS_ITS | Encounter Summary ---
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 [address] [facility] [address] [place] [id number] Rory Gudino MD [address] [facility] [address] [place] [address] documented as of this encounter Visit Diagnoses Diagnosis Hypertension- Primary documented in this encounter Care Teams Mechanical Maintenance Worker Relationship Specialty Start Date End Date Armando Nobles MD [address] [place] [address] PCP - General Internal Medicine 11/19/21 documented as of this encounter
--- OUTSIDE RECORDS SUMMARY | 2025-06-27 17:02 | XMS_ITS | Patient Health Record ---
Author Organization [facility] Address [address] [place] [address] Care Team Providers Care Incident Response Lead Name Role Phone APURVA WISEMAN Primary Care Provider Parvez Mercado Jr Unavailable [phone] Reason For Referral No Information Medications Medication SIG (Take, Route, Frequency, Duration) Notes Start Date End Date Status Metoprolol Succinate ER 50 MG Tablet Extended Release 24 Hour 1 tablet Orally Once a day Active Sensipar 60 MG Tablet 1 tablet after a m eal with food Orally Once a day Active Simvastatin 20 MG Tablet 1 tablet in the evening Orally Once a day Active Colyte with Flavor Packs 240 GM Solution Reconstituted As directed Orally Over the specified time.; Duration: 1 day(s) 05/26/2016 Active Calcitriol 0.25 MCG Capsule 1 capsule Or ally Once a day Active Valsartan 160 MG Tablet 1 tablet Orally Once a day Active Vitamin D 1000 UNIT Tablet 1 tablet Oral ly Once a day Active Dialyvite 800 0.8 MG Tablet 1 tablet Ora lly Once a day Active Renvela 800 MG Tablet TAKE 1 TABLET BY M OUTH 3 TIMES A DAY WITH MEALS Oral Three times a day Active amLODIPine Besylate 5 MG Tablet 1 tablet Orally Once a day Active Immunizations Vaccine Route Administration Date Status Comme nts Flu vaccine no Preserv 3 and > Unknown 04/20/2016 Admin istered Social History Social History Additional Details Category Social Info Options Details Miscellaneous: Marital status: single 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 Problems Problem Type SNOMED Code ICD Code Onset Dates Problem Status W/U Status Risk Notes Problem Colon cancer screening (643327518) Colon cancer screening (Z12.11) Active confirmed Problem Diverticular disease of colon (784008293) Diverticulosis of large intestine without hemorrhage (K57.30) Active confirmed Plan Of Treatment Future Test Test Name Order Date COLONOSCOPY 05/26/2016 Insurance Providers Payer Name Payer Address Payer Phone Subscriber Number Group Number Insured Name Patient Relationship to Insured Coverage Start Date Coverage End Date MEDICARE OF [place] [address] [place] [address] [id number] ROLANDA LUCIO Self - patient is the insured [employer] [address] [place] [id number] ROLANDA LUCIO Self - patient is the insured Medical (General) History Medical History History ICD Code colonoscopy 08-29-2009, tubular adenoma x 2, followup 3 years chronic kidney disease, peritoneal dialy sis elevated blood pressure elevated cholesterol hyperparathyroidism migraine headaches Denies IA,DM,CVA,Lung disease
== END 2025-06-27 16:56 | disposition home or self-care (01) ==
PROVIDERS: Physician Assistant Medical; Emergency Provider Emergency Medicine; PCP Internal Medicine
DX: M54.16 Radiculopathy, lumbar region (principal); M79.604 Pain in right leg; Z03.818 Encounter for observation for suspected exposure to other biological agents ruled out; E11.22 Type 2 diabetes mellitus with diabetic chronic kidney disease; I12.9 Hypertensive chronic kidney disease with stage 1 through stage 4 chronic kidney disease, or unspecified chronic kidney disease; N18.4 Chronic kidney disease, stage 4 (severe); E78.5 Hyperlipidemia, unspecified; Z79.4 Long term (current) use of insulin; Z79.02 Long term (current) use of antithrombotics/antiplatelets; Z79.899 Other long term (current) drug therapy; Z79.84 Long term (current) use of oral hypoglycemic drugs
CPT/HCPCS: 36415; 72100; 73502; 73700; 80048; 80076; 82550; 83690; 83735; 84484; 85025; 87637; 93005; 93971; 96365; 96375; 99284; 99285; J0131; J1171; J2405

== ENCOUNTER → 2025-06-27 11:13 | Outpatient (BNV) | payer BC, SELFPAY | PROVIDERS: PCP Internal Medicine; Visit Provider Internal Medicine Cardiovascular Disease | DX: R00.0 Tachycardia, unspecified (principal) | CPT/HCPCS: 93010 ==

== ENCOUNTER → 2025-06-27 13:11 | Outpatient (BNV) | payer BC, SELFPAY | PROVIDERS: Emergency Provider Emergency Medicine; PCP Internal Medicine; Visit Provider Radiology Diagnostic Radiology | DX: M16.11 Unilateral primary osteoarthritis, right hip (principal); M79.604 Pain in right leg; M51.369 Other intervertebral disc degeneration, lumbar region without mention of lumbar back pain or lower extremity pain; M16.0 Bilateral primary osteoarthritis of hip | CPT/HCPCS: 72100; 73502; 73700; 93971 ==

== ENCOUNTER 2025-07-10 08:50 | Outpatient (AMB) | payer BC, SELFPAY ==
--- NOTE | 2025-07-10 08:56 | MHC.PC.OV ---
Vital Signs 07/10/25 08:58 Height 5 ft 2 in Weight 116 lb 2 oz BMI 21.2 BP 110/70 Blood Pressure Location Rt brachial Position Sitting Pulse 100 Pulse Source Pulse Oximeter Temp 97.3 F Temp Source Temporal Artery Scan Pulse Oximetry (%) 96 Oxygen Delivery Method Room Air Intake Visit Reasons: Pain in leg Intake Note: Patient is here to follow up on Pain in right leg. 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 Accompanied by: Spouse Allergies oxycodone (From PERCOCET) Allergy (Unknown, Verified 07/10/25 09:36) NAUSEA & VOMITING semaglutide (From Rybelsus) Adverse Reaction (Verified 07/10/25 09:36) Vomiting Medication List - Last Reconciled 07/10/25 by Armando Nobles MD amlodipine 10 mg PO DAILY blood sugar diagnostic (FreeStyle Lite Strips) As directed once daily calcium carbonate 1,250 mg (2.5 x 500 mg calcium (1,250 mg)) PO DAILY 90 days cholecalciferol (vitamin D3) 50 mcg PO DAILY cyclobenzaprine 10 mg PO BEDTIME dapagliflozin propanediol (Farxiga) 10 mg PO DAILY 90 days insulin glargine (Lantus Solostar U-100 Insulin) units subcut lancets (FreeStyle Lancets) As directed once daily lancets (FreeStyle Lancets) daily magnesium oxide 400 mg PO DAILY metformin ER 1,000 mg PO BID metoprolol succinate ER mg PO mycophenolate sodium 360 mg PO BID ondansetron 4 mg PO Q8H PRN oxycodone 5 mg PO BID PRN pen needle, diabetic (BD Ultra-Fine Gill Pen Needle) As directed once daily simvastatin 20 mg PO BEDTIME tacrolimus XR (Envarsus XR) 2 mg PO DAILY tirzepatide (Mounjaro) 10 mg subcut QWEEK valsartan 80 mg PO DAILY Tobacco use date assessed: 07/10/25 Fall risk assessment: No Falls in past year Last assessed Fall Risk: 07/10/25 Dental Screening Dental Screen Date: 08/16/24 HPI HPI Comments History of Present Illness Details History of Present Illness - The patient is a 70-year-old female presenting with severe right leg pain. - The patient reports that approximately three weeks ago, she developed pain in her right leg, which became extremely painful over a couple of days. - The pain is constant, described as a squeezing sensation, and is severe enough to cause her to scream. - The pain originates in the right hip and radiates down the thigh into the leg. - Due to the severity of the pain, she sought evaluation at three different hospitals: [facility], [facility], and [facility]. - She reports that [facility] suggested a pinched nerve, while the other hospitals were unable to determine the cause. - Workup at these facilities included CT scans, X-rays, and an ultrasound of the leg. - The patient reports that medications provided for the pain have not been effective. - She has oxycodone at home but states it no longer works. - She was active with no problems prior to the onset of this pain. - The patient has a history of a kidney condition. Social History - Employment: The patient is concerned about losing her job due to her inability to work because of the pain. - Functional Status: She was active before the pain began but now ambulates slowly. Results - Imaging: The patient reports prior imaging studies from other facilities. - X-rays: Normal. - CT Scan: Performed. - Ultrasound of the leg: Performed. [facility] Medical History Osteopenia History of mammogram (~08/07/24) Osteoarthritis of left hip Dyslipidemia Diabetes type 2, uncontrolled Hypertension Hyperlipidemia Stage 4 chronic kidney disease Lobular carcinoma in situ of left breast Surgical History Hx of surgical procedure (04/23/25) Hx of colonoscopy (~11/17/23) History of kidney transplant (06/09/18) History of lumpectomy of left breast History of left breast biopsy (04/2018) History of biopsy History of Mohs surgery for squamous cell carcinoma of skin History of endometrial ablation History of umbilical hernia repair Family History Mother History of melanoma History of stomach cancer History of pulmonary embolism Social History Household Members: Significant Other Housing: Apartment Alcohol intake: never Patient Tobacco Use Status: Never used Tobacco e-Cigarette/Vaping Use: Never Used Second Hand Smoke Exposure: No service: No Current occupational status: employed and retired 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 1. Little interest or pleasure in doing things: not at all 2. Feeling down, depressed, or hopeless: not at all 3. Trouble falling or staying asleep, or sleeping too much: not at all 4. Feeling tired or having little energy: not at all 5. Poor appetite or overeating: not at all 6. Feeling bad about yourself - or that you are a failure or have let yourself or your family down: not at all 7. Trouble concentrating on things, such as reading the newspaper or watching television: not at all 8. Moving or speaking so slowly that other people could have noticed. Or the opposite - being so fidgety or restless that you have been moving around a lot more than usual: not at all 9. Thoughts that you would be better off or of hurting yourself in some way: not at all Total score: 0 Depression Screening Interpretation: Negative Depression Screening Done: Yes Source: Developed by Drs. Fox Dill, Holli Whitaker, Abelardo Wright and colleagues, with an educational gerard from [employer]. Thrive Questionnaire Date Thrive assessed: 08/16/24 I am a: Patient What is your living situation today?: I have a steady place to live Within the past 12 months, did the food you bought not last and you didn't have the money to get more?: Often true Within the past 12 months, did you worry whether your food would run out before you got money to buy more?: Often true Do you have trouble paying for medicines?: Yes Do you have trouble getting transportation to medical appointments?: Yes Do you have trouble paying your heating and electricity bill?: I choose not to answer this question Do you have trouble taking care of your child, family member or friend?: I choose not to answer this question Do you have trouble with day-to-day activities such as bathing, preparing meals, shopping, managing finances, etc.?: I choose not to answer this question Are you currently unemployed and looking for a job?: I choose not to answer this question Are you interested in more education?: I choose not to answer this question Please select the resources that you would like help with: Transportation Currently or been in a relationship where the following occur: I choose not to answer THRIVE Score: 3 AUDIT C Alcohol Use Questionnaire (AUDIT-C) 1. How often do you have a drink containing alcohol?: Never Total Score: 0 SHAYLA-7 AMB Questionnaire SHAYLA-7 Date SHAYLA - 7 assessed: 08/16/24 Feeling nervous, anxious, or on edge: 0 = Not at all Not being able to stop or control worryin = Not at all Worrying too much about different things: 0 = Not at all Trouble relaxin = Not at all Being so restless that it is hard to sit still: 0 = Not at all Becoming easily annoyed or irritable: 0 = Not at all Feeling afraid as if something awful might happen: 0 = Not at all Total SHAYLA-7 score (0-4 normal; 5-9 mild; 10-14 moderate; 15-21 severe): 0 Source: Developed by Drs. Fox Dill, Holli Whitaker, Abelardo Wright and colleagues, with an educational gerard from [employer]. Review of Systems Narrative Review of Systems - Musculoskeletal: Reports constant, severe, squeezing pain in the right hip, thigh, and leg for the past 17-21 days. - Psychiatric: Reports anxiety related to her condition and its effect on her employment. Physical exam (Primary Care) Vital Signs: Last Vital Signs Temp 97.3 F 07/10/25 08:58 Pulse 100 07/10/25 08:58 BP 110/70 07/10/25 08:58 Pulse Ox 96 07/10/25 08:58 Oxygen Delivery Method Room Air 07/10/25 08:58 BMI result Body Mass Index 21.2 Tobacco/Smoking Status: Tobacco use Status Tobacco use date assessed 07/10/25 07/10/25 09:08 Patient Tobacco Use Status Never used Tobacco 07/10/25 09:08 e-Cigarette/Vaping Use Never Used 07/10/25 09:08 PHQ-9: PHQ-9 Score PHQ-9: Total score 0 07/10/25 09:09 Depression Screening Interpretation: Negative Thrive Assessment: Date of Thrive Assessment Date Thrive assessed 08/16/24 07/10/25 09:08 Currently or been in a relationship where the following occur: I choose not to answer Narrative Physical Exam General: Appearance normal, both eyes and all related structures Nutritional Appearance: Well nourished Orientation/consciousness: Patient oriented x3 Limitations: Patient walked slowly, did not use a wheelchair, but has difficulty lying down due to pain Head: Normal to inspection Neck: Normal visual inspection Chest: Normal palpation of entire chest wall Respiratory: Normal respiratory effort Neurology: Patient oriented x3, but experiences significant pain from right hip down to left leg, affecting movement and causing distress Results AMB Hemoglobin A1c AMB Hemoglobin A1c 7.2 % Last Edit by CAYLA Dhaliwal on 07/10/25 09:17 Results Reviewed Results Reviewed: Laboratory Last Values Hgb A1c (Clinic) 7.2 % (4.0-6.0) H 07/10/25 08:55 Coding Level of Care Code Est Pt Level 4 (06185) Add On Problem Visit Only Diagnoses Right leg pain M79.604 Assessment & Plan Assessment & Plan (1) Right leg pain: Code(s): M79.604 - Pain in right leg Plan Plan - The patient's right lower extremity pain is assessed to be of muscular origin. - Prescribe the muscle relaxant cyclobenzaprine. - The patient will continue her current unspecified pain medication. - Meloxicam was discussed as a potential pain medication option. - Advised the patient to get plenty of rest. - Counseled the patient that anxiety can worsen pain and to try to relax. - Provide a work excuse note for her absence from work starting 06/24. - Recommended follow-up in one week or sooner if her condition does not improve. Discussion Notes I discussed with the patient that her symptoms seem to be muscular, especially since she reports her prior X-rays were normal. I recommended treatment with a muscle relaxant, cyclobenzaprine, to be taken in addition to her current pain medication. We discussed that her home supply of oxycodone is no longer effective, and meloxicam was offered as an alternative. I counseled her on the importance of rest and explained that anxiety can make her pain worse. I will provide her with a work note and have instructed her to follow up in one week or sooner if she is not feeling better. Patient Instructions - Continue taking your current pain medication. - You will be prescribed a muscle relaxant called cyclobenzaprine. - Make sure to get plenty of rest to allow your body to heal. - Try to relax, as anxiety and stress can make pain worse. - A note will be provided for your employer. - Please let us know if you are not feeling better in a week. Orders: Orders AMB Hemoglobin A1c Today E11.65 - Type 2 diabetes mellitus with hyperglycemia Medications: New cyclobenzaprine 10 mg PO BEDTIME 14 tabs 0RF
[2025-07-10 08:58] VITALS: BP 110/70; PULSE 100; TEMP 36.3; O2SAT 96; BMI 21.2
--- OUTSIDE RECORDS SUMMARY | 2025-07-10 09:00 | XMS_ITS | Clinical Summary ---
Author Organization [facility] Address [address] [facility] [address] [place] [address] Phone Care Team Providers Care Economics Professor Name Role Phone Armando Nobles MD Primary Care Provid er Allergies Active Allergy Reactions Criticality Noted Date Comments Oxycodone-Acetaminophen 07/03/2025 Medications gabapentin (NEURONTIN) 300 MG capsule 1 tab PO QHS for first 2 days; then 1 tab PO qAM and 1 tab PO QHS for 2 days; then 1 tab PO TID. This medicine could make you feel drowsy. 90 capsule 07/03/2025 Active Encounters Date Type Department Care Team Description 07/03/2025 9:39 AM EST - 07/03/2025 12:56 PM EST Emergency [facility] [address] [place] [address] Discharge Disposition: Home or Self Care from Last 3 Months Social History Tobacco Use Types Packs/Day Years Used Date Smoking Tobacco: Never Smokeless Tobacco: Never Tobacco Cessation:Counseling Given: Not Answered Alcohol Use Standard Drinks/Week Comments Not Currently 0 (1 standard drink = 0.6 oz pur e alcohol) Education Answer Date Recorded Are you interested in more education? Not on barney e 07/03/2025 Are you concerned about learning? Not on file 07/03/2025 No 07/03/2025 No 07/03/2025 Digital Access Answer Date Recorded No 07/03/2025 No 07/03/2025 Reliable internet access at home? Not on file 07/03/2025 Device with a working camera? Not on file Intimate Partner Violence Answer Date R ecorded Are you denied basic needs s uch as food, clothing, or medical care? No 07/03/2025 In the past 12 months have y ou been in a relationship with a person who hurts, threatens, or tries to control you? No 07/03/2025 Are you denied basic needs s uch as food, clothing, or medical care? No 07/03/2025 In the past 12 months have y ou been in a relationship with a person who hurts, threatens, or tries to control you? No 07/03/2025 Comments Unknown Sex and Gender Information Value Date Recorded Sex Assigned at Not on file Legal Sex Female 9:10 AM EST Gender Identity Not on file Sexual Orientation Not on file Last Filed Vital Signs Vital Sign Reading Time Taken Comments Blood Pressure 122/87 07/03/2025 12:00 PM EST Pulse 95 07/03/2025 12:00 PM EST Temperature 36.7 C (98.1 F) 07/03/2025 12:00 PM EST Respiratory Rate 20 07/03/2025 12:00 PM EST Oxygen Saturation 98% 07/03/2025 12:00 PM EST Inhaled Oxygen Concentration - - Weight 54.4 kg (120 lb) 07/03/2025 9:17 AM EST Height 157.5 cm (5' 2 ) 07/03/2025 9:17 AM EST Body Mass Index 21.95 07/03/2025 9:17 AM EST Plan of Treatment Health Maintenance Due Date Last Done Comments Adult Td,Tdap Booster 1955 LIPID PANEL 1955 COVID-19 VACCINE (#1) 1961 DEPRESSION SCREENING 1968 HEPATITIS C SCREENING 1974 PNEUMOCOCCAL VACCINES (50+ y ears) (1 of 2 - PCV) 1975 ZOSTER VACCINES (1 of 2) 1975 MAMMOGRAM 1996 COLOGUARD 2001 COLONOSCOPY 2001 COLORECTAL CANCER SCREENING 2001 FIT TEST 2001 FOBT 2001 SIGMOIDOSCOPY 2001 VIRTUAL COLONOSCOPY 2001 RSV VACCINE (1 - Risk 50-74 years 1-dose series) 2006 OSTEOPOROSIS SCREENING INITI AL (ONE-TIME) 2021 INFLUENZA VACCINE (#1) 2025 SMOKING STATUS SCREENING (On ce After 26 Yrs) Completed 07/03/2025 HEPATITIS A VACCINES Aged Out No long er eligible based on patient's age to complete this topic HIB VACCINES Aged Out No longer eligi ble based on patient's age to complete this topic MENINGOCOCCAL VACCINES (ACWY) Aged Out No longer eligible based on patient's age to complete this topic MENINGOCOCCAL VACCINES (B) Aged Out N o longer eligible based on patient's age to complete this topic Medical Devices Not on file Procedures Procedure Name Priority Date/Time Associated Diagnosis Comments CBC AND DIFFERENTIAL STAT 07/03/2025 10:57 AM EST SEDIMENTATION RATE (ESR) STAT 07/03/2025 10:57 AM EST C-REACTIVE PROTEIN (CRP), HIGH SENSITIVITY STAT 07/03/2025 10:57 AM EST BASIC METABOLIC PANEL (BMP) STAT 07/03/2025 10:57 AM EST CBC AND DIFFERENTIAL STAT 07/03/2025 10:57 AM EST from Last 3 Months Results * C-Reactive Protein (CRP), High Sensitivity (07/03/2025 10:57 AM EST) CRP, High Sensitivity 1.5 1.0 - 3.0 mg/L 07/03/2025 11:34 AM EST [facility] Comment: Cardiovascular Risk: Low: <1.0 mg/L Average: 1.0-3.0 mg/L High: >3.0 mg/L Acute Inflammation: >10.0 mg/L Persistent elevations may represent non cardiovascular inflammation. Blood (Blood) Venipuncture / Unknown 07/03/2025 10:57 AM EST 07/03/2025 11:04 AM EST us Sera Olmstead PA-C LAB BLOOD BKR ORDERAB LES Final Result [facility] [address] [place] [address] * CBC and Differential (07/03/2025 10:57 AM [facility]) WBC 4.49 4.00 - 11.00 K/uL 07/03/2025 11:09 AM [facility] RBC 4.64 4.00 - 5.20 M/uL 07/03/2025 11:09 AM [facility] Hemoglobin 13.6 12.0 - 16.0 g/dL 07/03/2025 11:09 AM [facility] Hematocrit 42.0 36.0 - 46.0 % 07/03/2025 11:09 AM [facility] MCV 90.5 80.0 - 100.0 fL 07/03/2025 11:09 AM [facility] MCH 29.3 27.0 - 31.0 pg 07/03/2025 11:09 AM [facility] MCHC 32.4 32.0 - 36.0 g/dL 07/03/2025 11:09 AM [facility] MPV 9.6 8.4 - 12.0 fL 07/03/2025 11:09 AM [facility] RDW-CV 13.2 11.5 - 14.5 % 07/03/2025 11:09 AM [facility] PLT 177 150 - 450 K/uL 07/03/2025 11:09 AM [facility] Neutrophils 54.0 % 07/03/2025 11:09 AM [facility] Lymphocytes 31.4 % 07/03/2025 11:09 AM [facility] Monocytes 12.0 % 07/03/2025 11:09 AM [facility] Eosinophils 1.1 % 07/03/2025 11:09 AM [facility] Basophils 0.4 % 07/03/2025 11:09 AM [facility] Imm Grans 1.1 % 07/03/2025 11:09 AM [facility] NRBC 0.0 <=0.0 /100 WBCs 07/03/2025 11:09 AM [facility] Absolute Neutrophils 2.42 1.92 - 7.60 K/uL 07/03/2025 11:09 AM [facility] Absolute Lymphocytes 1.41 0.72 - 4.10 K/uL 07/03/2025 11:09 AM [facility] Absolute Monocytes 0.54 0.16 - 1.10 K/uL 07/03/2025 11:09 AM [facility] Absolute Eosinophils 0.05 0.00 - 0.50 K/uL 07/03/2025 11:09 AM [facility] Absolute Basophils 0.02 0.00 - 0.15 K/uL 07/03/2025 11:09 AM [facility] Absolute Imm Grans 0.05 0.00 - 0.09 K/uL 07/03/2025 11:09 AM [facility] Absolute NRBC 0.00 <=0.00 K cells/uL 07/03/2025 11:09 AM [facility] Absolute Neutrophils 2.42 1.92 - 7.60 K/uL 07/03/2025 11:09 AM [facility] Comment:Automated cell count . Manual ANC may differ if performed. Diff Type Auto 07/03/2025 11:09 AM [facility] Blood (Blood) Venipuncture / Unknown 07/03/2025 10:57 AM EST 07/03/2025 11:04 AM EST Sera Olmstead PA-C LAB BLOOD BKR ORDERAB LES Final Result Performing Organization Address City/[facility]/ZIP Co de Phone Number [address] [address] * Erythrocyte Sedimentation Rate (ESR) (07/03/2025 10:57 AM EST) ESR 15 0 - 30 mm/h 07/03/2025 11:16 AM [facility] Blood (Blood) Venipuncture / Unknown 07/03/2025 10:57 AM EST 07/03/2025 11:04 AM EST Sera [employer]bennett PA-C LAB BLOOD BKR ORDERAB LES Final Result [address] [address] * (ABNORMAL) Basic Metabolic Panel (BMP) (07/03/2025 10:57 AM EST) Sodium 139 136 - 145 mmol/L 07/03/2025 11:34 AM [facility] Potassium 4.3 3.4 - 5.1 mmol/L 07/03/2025 11:34 AM [facility] Chloride 105 98 - 107 mmol/L 07/03/2025 11:34 AM [facility] CO2 22 20 - 31 mmol/L 07/03/2025 11:34 AM [facility] BUN 40(H) 6 - 23 mg/dL 07/03/2025 11:34 AM [facility] Creatinine 0.90 0.50 - 1.00 mg/dL 07/03/2025 11:34 AM [facility] Glucose 226(H) 70 - 99 mg/dL 07/03/2025 11:34 AM [facility] Calcium 10.7(H) 8.5 - 10.5 mg/dL 07/03/2025 11:34 AM [facility] eGFR 69 >59 mL/min/1.7 3m2 07/03/2025 11:34 AM [facility] Comment:Estimated glomerular filtration rate calculated using the CKD-EPI refit equation. Anion Gap 12 3 - 17 mmol/L 07/03/2025 11:34 AM [facility] Blood (Blood) Venipuncture / Unknown 07/03/2025 10:57 AM EST 07/03/2025 11:04 AM EST us Sera Olmstead PA-C LAB BLOOD BKR ORDERAB LES Final Result [facility] [address] [place] [address] from Last 3 Months Insurance [facility] [address] * Guarantor: Janell Mancera Account Type Relation to Patient Date of Phone Billing Address Personal/Family Self [address] [place], [place] [id number] [place] [address] Care Teams Economics Professor Relationship Specialty Start Date End Date Armando Nobles MD [address] [place] [address] [address] PCP - General Internal Medicine 07/03/25 Additional Source Comments The information contained in this document represents components of the legal health record. It is not the complete legal health record.[facility]
--- OUTSIDE RECORDS SUMMARY | 2025-07-10 09:00 | XMS_ITS | Clinical Summary ---
Author Organization [facility] Address [address] [address] Phone Care Team Providers Care Briquette Machine Operator Helper Name Role Phone Armando Nobles MD Primary [...] DAILY 90 tablet 3 06/10/20 25 Active magnesium oxide 400 (240 Mg) MG tablet TAKE ONE TABLET BY MOUTH EVERY MORNING AND TAKE ONE TABLET EVERY EVENING 60 tablet 10 07/02/20 25 Active magnesium oxide (MAG-OX) 400 MG tablet TAKE 1 TABLET (400 MG TOTAL) BY MOUTH IN THE MORNING AND 1 TABLET (400 MG TOTAL) IN THE EVENING. 60 tablet 2 03/18/20 25 025 Discontinued Active Problems Problem Noted Date Diagnosed Date Immunosuppression 11/24/2022 Essential (primary) hypertension 11/24/2022 Type 2 diabetes mellitus wit h other diabetic kidney complication 08/12/2021 Kidney transplant status 08/19/2020 History of renal transplant 06/09/2018 Overview (05/19/2022): [facility] Atypical ductal hyperplasia of breast 05/25/2018 Overview (05/19/2022): [facility] Anemia in chronic kidney disease 05/23/2013 [...] Encounters Date Type Department Care Team Description 07/02/2025 Refill [facility] [address] [facility] [address] [place] [address] Rory Gudino MD 06/10/2025 Refill [facility] [address] [facility] [address] [place] [address] Rory Gudino MD Hypertension from Last 3 [...] 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 [address] [address] Rory Gudino MD [address] [phone] Health Maintenance Due Date Last Done Comments Breast Cancer Screening 1955 Pneumococcal Vaccine: 50+ Years (3 of 3 - PCV) 05/18/2018 05/18/2017, 08/10/2013, 04/25/2012 Diabetes: Ophthalmology Exam 08/11/2020 Diabetes: Pedal Pulse Checked 08/11/2020 Diabetes: Sensory Foot Exam 08/11/2020 Diabetes: Visual Foot Exam 08/11/2020 Colonoscopy (Post-Transplant Patient) 08/19/2020 Mammogram (Post-Transplant Patient) 08/19/2020 Pelvic Exam (Post-Transplant Patient) 08/19/2020 Diabetes: Hemoglobin A1C 12/23/2022 023, 09/02/2022, 06/10/2021, Additional history exists Influenza Vaccine (#1) 2025 0, 04/19/2019, 06/07/2018, Additional history exists Hepatitis B Vaccine Aged Out 02/20/2014, 12/19/2013, 11/21/2013 No longer eligible based on patient's age to complete this topic Pneumococcal Vaccine: Peds (0 to 5 Years) and At-Risk Patients (6 to 49 Years) Discontinued 05/18/2017, 08/10/2013, 04/25/2012 Procedures Procedure Name Priority Date/Time Associated Diagnosis Comments HEMOGLOBIN A1C Routine 09/22/2022 8:32 AM EDT History of renal transplant Type 2 diabetes mellitus with other diabetic kidney complication (HCC) Anemia in chronic kidney disease from Last 3 Months or Most Recently Relevant to Health Maintenance Results * (ABNORMAL) Hemoglobin A1c (09/22/2022 8:32 AM EDT) Hemoglobin A1C 8.0(H) (4.0-5.6) % [facility] Comment: MONITORING: In known diabetic patients, hemoglobin A1c targets should be discussed with health care provider. DIAGNOSTIC USE: The [place] Diabetes Association (ADA) and the World Health [...] Supplement 1 Testing performed or reported by [facility], a Service of [facility], [address] [place] [id number] Saad Saucedo MD, Social Media Project Manager [facility]# [id number] Blood specimen (specimen) Venous blood / Unknown 09/22/2022 8:32 AM EDT 09/22/2022 8:35 AM EDT us Rina Evans MD LAB BLOOD ORDERABLES Final Resu lt [facility] from Last 3 Months or Most Recently Relevant to Health Maintenance Insurance [facility] [address] [place] [id number] [facility] [address] [place] [id number] Care Teams Briquette Machine Operator Helper Relationship Specialty Start Date End Date Armando Nobles MD [address] [address] PCP - General Internal Medicine 11/19/21
--- OUTSIDE RECORDS SUMMARY | 2025-07-10 09:00 | XMS_ITS | Encounter Summary ---
Author Organization [facility] Address [address] [facility] [address] [place] [address] Phone Care Team Providers Care Maintenance Mgr Name Role Phone Armando Nobles MD Primary Care Provider + Reason for Visit * Reason Comments Med Refill Encounter Details Date Type Department Care Team ([facility] Contact Info) Description 12/18/2022 Refill [facility] [address] [facility] [address] [place] [address] Michael Cadet MD [address] [place] [address] Type 2 diabetes mellitus with other diabetic [...] 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 [address] [facility] [address] [place] [address] Rory Gudino MD [address] [facility] [address] [place] [phone] documented as of this encounter Visit Diagnoses Diagnosis Type 2 diabetes mellitus with other diabetic kidney complication (HCC) documented in this encounter Care Teams Maintenance Mgr Relationship Specialty Start Date End Date Armando Nobles MD [address], [facility] [address] [place] [address] PCP - General Internal Medicine 11/19/21 documented as of this encounter
--- OUTSIDE RECORDS SUMMARY | 2025-07-10 09:00 | XMS_ITS | Encounter Summary ---
Author Organization [facility] Address [address] [facility] [address] [place] [address] Phone Care Team Providers Care Log Check Scaler Name Role Phone Armando Nobles MD Primary Care Provider + Reason for Visit * Reason Comments Med Refill Encounter Details Date Type Department Care Team (Late Contact Info) Description 10/24/2023 Refill [facility] [address] [facility] [address] [place] [address] Ander Rivera MD [address] [place] [address], [facility] [address] [place] [address] Social History Tobacco Use Types Packs/Day Years [...] 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 [address] [facility] [address] [place] [phone] Rory Gudino MD [address] [facility] [address] [place] [address] documented as of this encounter Visit Diagnoses Not on filedocumented in this encounter Care Teams Log Check Scaler Relationship Specialty Start Date End Date Armando Nobles MD [address], [facility] [address] [place] [address] PCP - General Internal Medicine 11/19/21 documented as of this encounter
--- OUTSIDE RECORDS SUMMARY | 2025-07-10 09:00 | XMS_ITS | Patient Health Record ---
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 Problems Problem Type SNOMED Code ICD Code Onset Dates Problem Status W/U Status Risk Notes Problem Colon cancer screening (202741349) Colon cancer screening (Z12.11) Active confirmed Problem Diverticular disease of colon (669534444) Diverticulosis of large intestine without hemorrhage (K57.30) Active confirmed Plan Of Treatment Future Test Test Name Order Date COLONOSCOPY 05/26/2016 Insurance Providers Payer Name Payer Address Payer Phone Subscriber Number Group Number Insured Name Patient Relationship to Insured Coverage Start Date Coverage End Date MEDICARE OF [place] [address] [place] [address] [phone] [id number] ROLANDA LUCIO Self - patient is the insured [employer] [address] [place]ONZALEZ [id number] [phone] [id number] ROLANDA LUCIO Self - patient is the insured Medical (General) History Medical History History ICD Code colonoscopy 08-29-2009, tubular adenoma x 2, followup 3 years chronic kidney disease, peritoneal dialy sis elevated blood pressure elevated cholesterol hyperparathyroidism migraine headaches Denies MT,DM,CVA,Lung disease
--- OUTSIDE RECORDS SUMMARY | 2025-07-10 09:00 | XMS_ITS | Encounter Summary ---
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 [address] [facility] [address] [place] [phone] Rory Gudino MD [address] [facility] [address] [place] [address] documented as of this encounter Visit Diagnoses Diagnosis Hypertension- Primary documented in this encounter Care Teams Farm Loan Inspector Relationship Specialty Start Date End Date Armando Nobles MD [address] [place] [address] PCP - General Internal Medicine 11/19/21 documented as of this encounter
--- OUTSIDE RECORDS SUMMARY | 2025-07-10 09:00 | XMS_ITS | Clinical Summary ---
Author Organization [facility] Address [address] [place] [address] Care Team Providers Care Service Learning Coordinator Name Role Phone Pcp, No Primary Care [...] age to complete this topic Insurance [employer] [place] [employer] [place] - HMO Care Teams Service Learning Coordinator Relationship Specialty Start Date End Date Pcp, No PCP - General General Medicine 10/16/24
== END 2025-07-10 09:37 | disposition home or self-care (01) ==
LOC: HO.HMCH 08:51
PROVIDERS: PCP Internal Medicine; Visit Provider Internal Medicine
DX: E11.65 Type 2 diabetes mellitus with hyperglycemia (principal); M79.604 Pain in right leg

== ENCOUNTER → 2025-07-10 08:50 | Outpatient (BNVA) | payer BC, SELFPAY | PROVIDERS: PCP Internal Medicine; Visit Provider Internal Medicine | DX: M79.604 Pain in right leg (principal); E11.65 Type 2 diabetes mellitus with hyperglycemia | CPT/HCPCS: 83036 ==